=== PATIENT | female | born 1950 | race Caucasian/White ===

== ENCOUNTER 2018-05-05 12:19 | Observation (INO) ==
[2018-05-05] MEDS ORDERED: Ondansetron 4 MG/2 ML VIAL IVP ONE (12:32)
[2018-05-05] MEDS ORDERED: *HR* HYDROcodone/Acet 5/325 mg TABLET PO ONE ×2 (12:33→12:34)
[2018-05-05] MEDS ORDERED: 0.9 % Sodium Chloride 1,000 ML IVC ONE (12:35)
--- NOTE | 2018-05-05 12:35 | Emergency Department Note ---
Disposition Clinical Impression: UTI (urinary tract infection) Qualifiers: Urinary tract infection type: acute pyelonephritis Qualified Code(s): N10 - Acute pyelonephritis Disposition: Home, Self-Care Condition: Fair Time of Disposition: 15:00 (Dr Worrell) Abdominal Pain HPI - General Chief Complaint: ED Abdominal Pain Stated Complaint: pelvic and low back pain Time Seen by Provider: 05/05/18 12:24 Source: patient Mode of arrival: ambulatory Limitations: no limitations Nursing Notes Reviewed: Yes Vital Signs Reviewed: Yes - History of Present Illness HPI Narrative: Patient woke up around 3 in the morning complaining of right flank low back pain that radiates to the suprapubic area. Pt Subjective Complaint: abdominal pain, flank pain Consistency: constant, Worsening Location: suprapubic, R flank Pain Severity: severe Quality: cramping, stabbing, aching Radiation: none Migration to: no migration Improves with: nothing Worsens with: nothing Context: other (Patient has a history of UTI with pyelonephritis as well as kidney stones. She states this is slightly different from previous pain.) Associated symptoms: Reports: nausea, chills, dysuria. Denies: vomiting, diarrhea, fever, constipation, hematemesis, hematochezia, melena, hematuria, anorexia, syncope Treatments prior to arrival: none - Related Data Home Medications Medication Instructions Recorded Confirmed Albuterol Neb [Proventil Neb] 2.5 mg IH Q4HR 10/17/16 05/05/18 Albuterol Sulfate [Proair Hfa] 2 puff IH Q4H PRN 10/17/16 05/05/18 Aspirin [Lo-Dose Aspirin EC] 81 mg PO DAILY 10/17/16 05/05/18 Budesonide/Formoterol 160/4.5 2 puff IH BID 10/17/16 05/05/18 [Symbicort 160/4.5] Furosemide [Lasix] 40 mg PO DAILY 10/17/16 05/05/18 Insulin DETEMIR [Levemir Flextouch] 7 unit SQ QPM 10/17/16 05/05/18 Mv W-Ca/Iron/FA/Lutein/Hrb#179 1 each PO DAILY 10/17/16 05/05/18 [Bg Multivit For Women Caplet] ALPRAZolam [Xanax 1 MG Tablet] 1 mg PO TID 12/25/17 05/05/18 Empagliflozin [Jardiance] 10 mg PO DAILY 12/25/17 05/05/18 Nitroglycerin [Nitrostat] 0.4 mg SL Q5M PRN 12/25/17 02/20/18 Cyclobenzaprine [Flexeril] 1 PO PRN PRN 02/20/18 Ranitidine HCl [Acid Sales Representative Metals] 150 mg PO DAILY 05/05/18 05/05/18 Previous Rx's Medication Instructions Recorded OxyCODONE/APAP 5/325 [Percocet 1 - 2 tab PO QID PRN 7 Days #20 12/29/17 5/325 MG] tablet predniSONE [PredniSONE] 40 mg PO DAILY #4 tablet 01/07/18 Allergies Allergy/AdvReac Type Severity Reaction Status Date / Time No Known Allergies Allergy Verified 05/05/18 12:54 All systems ED: reviewed and negative except as stated. Review of Systems: As Per HPI Abdominal Pain PMH - Past Medical History Medical history: Reports: COPD, coronary artery disease, diabetes, GERD, hypertension, myocardial infarction Female Surgical History: Reports: Adenoidectomy, Tonsillectomy Psychiatric history: Reports: no psych history - Social History Smoking status: Current every day smoker Alcohol use: Reports: none Drug use: Reports: none Physical Exam - General Limitations: no limitations General appearance: alert, in distress - Head Head exam: atraumatic, normocephalic, normal inspection - Eye Eye exam: Present: normal appearance. Absent: scleral icterus, conjunctival injection - ENT ENT exam: normal exam, normal oropharynx, mucous membranes moist - Neck Neck exam: Present: normal inspection, full ROM, trachea midline - Chest Chest inspection: Present: normal inspection, symmetric chest wall rise - Respiratory Respiratory exam: Present: normal lung sounds bilaterally - Cardiovascular Cardiovascular exam: Present: normal rhythm, tachycardia, normal heart sounds. Absent: JVD - Abdominal Exam Abdominal exam: Present: soft, tenderness. Absent: distention, guarding, rebound, rigidity, mass, bruit, pulsatile mass Abdominal tenderness: Present: LLQ, suprapubic - Extremities Exam Extremities exam: Present: normal inspection, full ROM. Absent: tenderness, pedal edema - Expanded Lower Extremity Exam Hip/Pelvis exam: Present: normal inspection, full ROM - Back Exam Back exam: Present: CVA tenderness (R), CVA tenderness (L) - Neurological Exam Neurological exam: Present: alert, oriented X3, CN II-XII intact - Psychiatric Psychiatric exam: Present: normal affect, anxious - Skin Skin exam: Present: warm, intact, normal color Course Vital Signs Temperature 100.4 F H 05/05/18 12:27 Pulse Rate 128 05/05/18 12:27 Respiratory Rate 18 05/05/18 12:27 Blood Pressure 133/82 05/05/18 12:27 O2 Sat by Pulse Oximetry 93 05/05/18 12:27 Temperature 100.4 F H 05/05/18 12:27 Pulse Rate 91 05/05/18 15:23 Respiratory Rate 22 05/05/18 16:47 Blood Pressure 133/72 05/05/18 15:23 O2 Sat by Pulse Oximetry 96 05/05/18 16:47 Oxygen Delivery Oxygen Delivery Nasal Cannula Abdominal Pain - Differential Diagnosis Differential Diagnosis: Likely: abdominal pain non-specific, diverticulitis, diverticulosis. Unlikely: AAA, acute appendicitis, endometriosis, gastroenteritis, hernia - Medical Records Medical records reviewed: Yes I reviewed the patient's medical records. - Lab Data Lab results reviewed: Yes I reviewed the patient's lab results. Result diagrams: 05/05/18 12:50 05/05/18 12:50 Lab Results 05/05/18 05/05/18 05/05/18 Range/Units 12:32 12:50 12:50 WBC 14.2 H (4.3-11.1) K/mcL RBC 4.76 (3.82-4.97) M/mcL Hgb 12.7 (11.5-15.4) g/dL Hct 39.0 (35.3-44.9) % MCV 81.9 L (83.0-100.0) fL MCH 26.7 L (28.0-33.3) pg MCHC 32.6 (31.6-35.5) g/dL RDW 14.2 (11.5-14.5) % Plt Count 242 (140-400) K/mcL MPV 11.0 (9.4-12.4) fL Immature Gran % 0.4 (0-4) % Seg Neutrophils % 92.4 % Lymphocytes % 4.9 % Monocytes % 1.5 % Eosinophils % 0.5 % Basophils % 0.3 % Neutrophils # 13.1 H (1.6-8.9) K/mcL Lymphocytes # 0.7 (0.6-4.6) K/mcL Monocytes # 0.2 (0.0-1.3) K/mcL Eosinophils # 0.1 (0.0-0.6) K/mcL Basophils # 0.0 (0.0-0.2) K/mcL Sodium 142 (136-145) mEq/L Potassium 3.5 (3.5-5.1) mEq/L Chloride 105 (98-107) mEq/L Carbon Dioxide 26 (23-29) mEq/L BUN 23 (8-23) mg/dL Creatinine 0.74 (0.60-1.20) mg/dL Est GFR ( Amer) > 60 (> 60) Est GFR (Non-Af Amer) > 60 (> 60) BUN/Creatinine Ratio 31 H (6-26) Glucose 184 H (70-105) mg/dL Calculated Osmolality 302 H (280-300) Lactic Acid (0.5-2.2) mmol/L Calcium 9.1 (8.6-10.3) mg/dL Total Bilirubin 0.5 (0.3-1.0) mg/dL Direct Bilirubin 0.1 (0.0-0.2) mg/dL Indirect Bilirubin 0.4 (0.0-1.2) mg/dL AST 15 (13-39) Units/L ALT 12 (7-52) Units/L Alkaline Phosphatase 110 H (34-104) Units/L Serum Total Protein 7.4 (6.4-8.9) g/dL Albumin 4.0 (3.5-5.7) g/dL Globulin 3.4 (2.4-3.5) g/dL Albumin/Globulin Ratio 1.2 (1.1-2.2) Urine Color Yellow (Yellow) Urine Clarity Cloudy A (Clear) Urine pH 6.0 (5.0-8.0) pH Units Ur Specific [place] 1.025 (1.010-1.025) Urine Protein >=300 H (Neg-Trace) mg/dL Urine Glucose (UA) Normal (Normal) mg/dL Urine Ketones Negative (Negative) mg/dL Urine Blood Large H (Negative) Urine Nitrite Negative (Negative) Urine Bilirubin Small H (Negative) Urine Urobilinogen Normal (Normal) mg/dL Ur Leukocyte Esterase Moderate H (Negative) Urine Microscopic RBC TNTC H (0-3) per hpf Urine Microscopic WBC TNTC H (0-3) per hpf Ur Squamous Epith Cells Few (None-Few) per lpf Urine Bacteria Many H (None-Few) per hpf Hyaline Casts Few (None-Few) per lpf Urine Mucus Moderate H (Few) Ur Culture Indicated? YES A (NO) 05/05/18 Range/Units 12:50 WBC (4.3-11.1) K/mcL RBC (3.82-4.97) M/mcL Hgb (11.5-15.4) g/dL Hct (35.3-44.9) % MCV (83.0-100.0) fL MCH (28.0-33.3) pg MCHC (31.6-35.5) g/dL RDW (11.5-14.5) % Plt Count (140-400) K/mcL MPV (9.4-12.4) fL Immature Gran % (0-4) % Seg Neutrophils % % Lymphocytes % % Monocytes % % Eosinophils % % Basophils % % Neutrophils # (1.6-8.9) K/mcL Lymphocytes # (0.6-4.6) K/mcL Monocytes # (0.0-1.3) K/mcL Eosinophils # (0.0-0.6) K/mcL Basophils # (0.0-0.2) K/mcL Sodium (136-145) mEq/L Potassium (3.5-5.1) mEq/L Chloride (98-107) mEq/L Carbon Dioxide (23-29) mEq/L BUN (8-23) mg/dL Creatinine (0.60-1.20) mg/dL Est GFR ( Amer) (> 60) Est GFR (Non-Af Amer) (> 60) BUN/Creatinine Ratio (6-26) Glucose (70-105) mg/dL Calculated Osmolality (280-300) Lactic Acid 2.0 (0.5-2.2) mmol/L Calcium (8.6-10.3) mg/dL Total Bilirubin (0.3-1.0) mg/dL Direct Bilirubin (0.0-0.2) mg/dL Indirect Bilirubin (0.0-1.2) mg/dL AST (13-39) Units/L ALT (7-52) Units/L Alkaline Phosphatase (34-104) Units/L Serum Total Protein (6.4-8.9) g/dL Albumin (3.5-5.7) g/dL Globulin (2.4-3.5) g/dL Albumin/Globulin Ratio (1.1-2.2) Urine Color (Yellow) Urine Clarity (Clear) Urine pH (5.0-8.0) pH Units Ur Specific [place] (1.010-1.025) Urine Protein (Neg-Trace) mg/dL Urine Glucose (UA) (Normal) mg/dL Urine Ketones (Negative) mg/dL Urine Blood (Negative) Urine Nitrite (Negative) Urine Bilirubin (Negative) Urine Urobilinogen (Normal) mg/dL Ur Leukocyte Esterase (Negative) Urine Microscopic RBC (0-3) per hpf Urine Microscopic WBC (0-3) per hpf Ur Squamous Epith Cells (None-Few) per lpf Urine Bacteria (None-Few) per hpf Hyaline Casts (None-Few) per lpf Urine Mucus (Few) Ur Culture Indicated? (NO)
[2018-05-05 12:45] LABS: Bilirubin,Urine Small (Negative); Blood,Urine Large (Negative); Clarity,Urine Cloudy (Clear); Color,Urine Yellow (Yellow); Glucose,Urine (UA) Normal (Normal); Ketones,Urine Negative (Negative); Leukocyte Esterase,Urine Moderate (Negative); Nitrite,Urine Negative (Negative); Protein,Urine >=300 mg/dL (Neg-Trace); Specific Gravity,Urine 1.025 (1.010-1.025); Urobilinogen,Urine Normal (Normal)
[2018-05-05 12:53] LABS: Bacteria,Urine Many per hpf (None-Few); Hyaline Casts,Urine Few per lpf (None-Few); Mucus,Urine Moderate (Few); RBC,Urine TNTC per hpf (0-3); Squamous Epithelial Cell,Urine Few per lpf (None-Few); WBC,Urine TNTC per hpf (0-3)
[2018-05-05] MEDS ORDERED: Piperacillin/Tazobactam 3.375 GM in 0.9 % Sodium Chloride Mini Bag 100 ML IVPB ONE (13:01)
[2018-05-05 13:05] LABS: Basophils % 0.3 %; Eosinophils # 0.1 K/mcL (0.0-0.6); Eosinophils % 0.5 %; Hemoglobin 12.7 g/dL (11.5-15.4); Immature Granulocytes % 0.4 % (0-4); Lymphocytes # 0.7 K/mcL (0.6-4.6); Lymphocytes % 4.9 %; Mean Corpuscular HGB Conc 32.6 g/dL (31.6-35.5); Mean Corpuscular Hemoglobin 26.7 pg (28.0-33.3); Mean Corpuscular Volume 81.9 fL (83.0-100.0); Monocytes # 0.2 K/mcL (0.0-1.3); Monocytes % 1.5 %; Neutrophils # 13.1 K/mcL (1.6-8.9); Platelet Count 242 K/mcL (140-400); Red Blood Count 4.76 M/mcL (3.82-4.97); Red Cell Distribution Width 14.2 % (11.5-14.5); Segmented Neutrophils % 92.4 %
[2018-05-05 13:24] LABS: Alanine Aminotransferase 12 Units/L (7-52); Albumin/Globulin Ratio 1.2 (1.1-2.2); Alkaline Phosphatase 110 Units/L (34-104); Aspartate Amino Transferase 15 Units/L (13-39); BUN/Creatinine Ratio 31 (6-26); Bilirubin,Direct 0.1 mg/dL (0.0-0.2); Bilirubin,Indirect 0.4 mg/dL (0.0-1.2); Bilirubin,Total 0.5 mg/dL (0.3-1.0); Blood Urea Nitrogen 23 mg/dL (8-23); Calcium 9.1 mg/dL (8.6-10.3); Carbon Dioxide 26 mEq/L (23-29); Chloride 105 mEq/L (98-107); Globulin 3.4 g/dL (2.4-3.5); Glucose 184 mg/dL (70-105); Osmolality,Calculated 302 (280-300); Potassium 3.5 mEq/L (3.5-5.1); Sodium 142 mEq/L (136-145); Total Protein 7.4 g/dL (6.4-8.9); eGFR For African Americans > 60 (> 60); eGFR For Non-African Americans > 60 (> 60)
[2018-05-05] MEDS ORDERED: 0.9 % Sodium Chloride 1,000 ML IVC SCH (13:45)
[2018-05-05] MEDS ORDERED: *HR* HYDROcodone/Acet 5/325 mg TABLET PO PRN (15:58)
[2018-05-05] MEDS ORDERED: Naloxone 0.4 MG/ML INJ IVP PRN ×2 (15:58)
[2018-05-05] MEDS: Albuterol 2.5 MG/3 ML NEBULIZER IH SCH ×2 (16:47→21:29)
[2018-05-05] MEDS: *HR* OxyCODONE Immed Rel 5 MG TABLET PO PRN (16:49)
[2018-05-05] MEDS: ALPRAZolam 1 MG TABLET PO SCH ×2 (17:08→21:22)
[2018-05-05] MEDS: Insulin DETEMIR 100 UNIT/ML X5UNITS SQ SCH (18:18)
[2018-05-05] MEDS: Acetaminophen 325 MG TABLET PO PRN (21:22)
[2018-05-05] MEDS: 0.9 % Sodium Chloride 1,000 ML IVC SCH (21:25)
[2018-05-05] MEDS: Budesonide/Formoterol 160/4.5 MDI IH SCH (21:30)
[2018-05-06] MEDS: Albuterol 2.5 MG/3 ML NEBULIZER IH SCH ×6 (03:30→20:44)
[2018-05-06] MEDS: Acetaminophen 325 MG TABLET PO PRN (04:44)
[2018-05-06] MEDS: 0.9 % Sodium Chloride 1,000 ML IVC SCH (04:45)
[2018-05-06] MEDS: Budesonide/Formoterol 160/4.5 MDI IH SCH ×2 (08:07→20:44)
[2018-05-06] MEDS: Famotidine 20 MG TABLET PO SCH (08:17)
[2018-05-06] MEDS: ALPRAZolam 1 MG TABLET PO SCH ×3 (08:17→21:54)
[2018-05-06] MEDS: Multivit/Ca/Min/Fe/FA 1 TAB TABLET PO SCH (08:18)
[2018-05-06] MEDS: Aspirin Enteric Coated 81 MG Tablet PO SCH (08:18)
[2018-05-06] MEDS: JARDIANCE 10MG PO SCH (08:18)
[2018-05-06] MEDS ORDERED: Furosemide 40 MG TABLET PO SCH (09:00)
[2018-05-06] MEDS ORDERED: predniSONE 20 MG TABLET PO SCH (09:00)
--- NOTE | 2018-05-06 09:15 | Internal Med History&Physical ---
Date of Encounter: 05/06/18 Time of Encounter: 08:40 Assessment and Plan (1) Neutrophilic leukocytosis Current visit: Yes Status: Acute Possible pyelonephritis. Will order CT of abdomen to further evaluate since she has had intermittent hematuria present for a few weeks. Will also order chest CT to further evaluate. (2) Microcytosis Current visit: Yes Status: Acute Will order iron studies in a.m. (3) B12 deficiency Current visit: Yes Status: Acute B12 level was low at 173 on 11/11/2017. Will recheck in a.m. (4) Urinary tract infection Current visit: Yes Status: Acute She was given a dose of Zosyn in emergency room. We will continue this with lactobacillus. Qualifiers: Urinary tract infection type: site unspecified Hematuria presence: with hematuria Qualified Code(s): N39.0 - Urinary tract infection, site not specified; R31.9 - Hematuria, unspecified (5) HTN (hypertension) Current visit: No Status: Chronic Blood pressure borderline low today. Will hold metoprolol. Qualifiers: Hypertension type: essential hypertension Qualified Code(s): I10 - Essential (primary) hypertension Internal Medicine - H&P: HPI Chief complaint: Abdominal and flank pain Admitted From: Emergency Dept Plans for Post Hospital Care: Home History of present illness: Ms. Laird is a 68 year old female who came to emergency room stating she awakened at 0300 on the day of admission with pain in her right flank that seemed to radiate to her right lower quadrant and suprapubic area. She had nausea but denied vomiting. She had sensation of fevers and chills. She has had visible hematuria intermittently for 2 weeks. She was evaluated in emergency room and found to have leukocytosis with left shift. She was admitted to [facility] floor with diagnosis of UTI and possible pyelonephritis. She states she feels improved at the present time. She reports she has had numerous kidney stones in the past and has seen Dr. Sorensen at [facility]. She does not know the stone composition. She had cystoscopy November 2017 for hydronephrosis without stones seen. She has had frequent urinary tract infections. She denies other kidney or bladder disorders. Past Med Surg Social Fam HX - Past Medical History Medical history: COPD, coronary artery disease, diabetes, GERD, hypertension, myocardial infarction Additional medical history: kidney stone Psychiatric history: no psych history - Past Surgical History Surgical History: appendectomy, cholecystectomy, herniorrhaphy Additional surgical history: triple bipass, T&A - Social History Smoking Status: Current every day smoker Smokeless Tobacco Status: No Alcohol use: none Drug use: none - Family History Mother Living Status: Father Living Status: Internal Medicine - H&P: Meds Albuterol Neb [Proventil Neb] 2.5 mg IH Q4HR 10/17/16 [History] Albuterol Sulfate [Proair Hfa] 2 puff IH Q4H PRN 10/17/16 [History] Aspirin [Lo-Dose Aspirin EC] 81 mg PO DAILY 10/17/16 [History] Budesonide/Formoterol 160/4.5 [Symbicort 160/4.5] 2 puff IH BID 10/17/16 [ History] Furosemide [Lasix] 40 mg PO DAILY 10/17/16 [History] Insulin DETEMIR [Levemir Flextouch] 7 unit SQ QPM 10/17/16 [History] Mv W-Ca/Iron/FA/Lutein/Hrb#179 [Bg Multivit For Women Caplet] 1 each PO DAILY 10/17/16 [History] ALPRAZolam [Xanax 1 MG Tablet] 1 mg PO TID 12/25/17 [History] Empagliflozin [Jardiance] 10 mg PO DAILY 12/25/17 [History] Nitroglycerin [Nitrostat] 0.4 mg SL Q5M PRN 12/25/17 [History] OxyCODONE/APAP 5/325 [Percocet 5/325 MG] 1 - 2 tab PO QID PRN 7 Days #20 tablet 12/29/17 [Rx] predniSONE [PredniSONE] 40 mg PO DAILY #4 tablet 01/07/18 [Rx] Cyclobenzaprine [Flexeril] 1 PO PRN PRN 02/20/18 [History] Ranitidine HCl [Acid Phd Intern] 150 mg PO DAILY 05/05/18 [History] 3 Allergy/AdvReac Type Severity Reaction Status Date / Time No Known Allergies Allergy Verified 05/05/18 12:54 All Systems PM: A 10-system review of systems was performed and is negative for pertinent findings except as documented above in the HPI. Review of systems: Gen.: Her weight has decreased from 73.482 kg on 12/28/2017 to admission weight of 70.307 kg now. Cardiovascular: She has history of hypertension. 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 She has not had stress test or repeat heart catheter since the surgery. She denies known heart failure DVT or pulmonary embolus. Respiratory: She has smoked since age 11 up to one pack every 2 weeks. She denies chronic lung disease and does not use home oxygen. GI: She has had cholecystectomy. She denies disorders of her liver or exocrine pancreas : As per history of present illness Endocrine: She was diagnosed with DM 2 in 2012. She has hyperlipidemia but denies thyroid disease. Hematology/oncology: She denies blood disorders cancers or anemia. She was unaware she had low B12 level on October 2017 labs. She was unaware she had microcytosis on labs in emergency room. Psychiatric: She has anxiety and depression but denies other mental health diagnoses [place] skeletal: She denies arthritis gout or other bone joint or muscle disorders. - Constitutional Vitals: Temp Pulse Resp BP Pulse Ox 98.2 F 80 16 96/54 95 05/06/18 06:49 05/06/18 06:49 05/06/18 06:49 05/06/18 06:49 05/06/18 08:05 Exam: Gen.: She is a well developed well nourished female resting comfortably in bed who appears in no acute distress. HEENT: Head is atraumatic and normocephalic. Eyes: EOMI. There is no scleral icterus. Mouth: Mucosa is moist. Neck: Supple and nontender. There is no thyromegaly or adenopathy noted. Heart: Regular without murmurs gallops or ectopics Lungs: She has scattered rhonchi. She has some egophony in the posterior lung grimm bilaterally. Abdomen: Soft and nontender. No masses or guarding are noted. Bowel sounds are present. Extremities: There is no cyanosis edema or clubbing noted. Dorsalis pedis and posttibial pulses are trace to 1+ palpable bilaterally. Feet are warm to touch. Neurologic: Mental status: She is talkative and a good historian. Cranial nerves: Smile is symmetric. Forehead wrinkles bilaterally. Tongue protrudes midline. EOMI. Motor: There is no pronator drift. Cerebellar: Finger to nose is intact bilaterally. Skin: Warm and dry Internal Med - H&P Results - Labs CBC & Chem 7: 05/05/18 12:50 05/05/18 12:50
[2018-05-06] MEDS: 0.45 % Sodium Chloride w/KCl 20 MEQ/1,000 ML MLS IVC SCH ×2 (10:08→21:54)
[2018-05-06] MEDS: Piperacillin/Tazobactam 3.375 GM in 0.9 % Sodium Chloride Mini Bag 100 ML IVPB SCH ×3 (10:09→23:59)
[2018-05-06] MEDS: *HR* OxyCODONE Immed Rel 5 MG TABLET PO PRN (18:20)
[2018-05-06] MEDS: Insulin DETEMIR 100 UNIT/ML X5UNITS SQ SCH (18:21)
[2018-05-06] MEDS: Lactobacillus 1 EACH CAP.SPRINK PO SCH (21:54)
[2018-05-07] MEDS: Albuterol 2.5 MG/3 ML NEBULIZER IH SCH ×6 (00:41→20:23)
[2018-05-07] MEDS: 0.45 % Sodium Chloride w/KCl 20 MEQ/1,000 ML MLS IVC SCH ×2 (06:18→21:03)
[2018-05-07 06:51] LABS: Basophils % 0.3 %; Eosinophils % 0.3 %; Hematocrit 31.6 % (35.3-44.9); Immature Granulocytes % 0.9 % (0-4); Lymphocytes # 1.2 K/mcL (0.6-4.6); Lymphocytes % 18.2 %; Mean Corpuscular HGB Conc 31.6 g/dL (31.6-35.5); Mean Corpuscular Hemoglobin 26.5 pg (28.0-33.3); Mean Corpuscular Volume 83.8 fL (83.0-100.0); Mean Platelet Volume 11.9 fL (9.4-12.4); Monocytes # 0.5 K/mcL (0.0-1.3); Monocytes % 7.1 %; Neutrophils # 4.8 K/mcL (1.6-8.9); Platelet Count 189 K/mcL (140-400); Red Blood Count 3.77 M/mcL (3.82-4.97); Red Cell Distribution Width 14.6 % (11.5-14.5); Segmented Neutrophils % 73.2 %
[2018-05-07 07:20] LABS: BUN/Creatinine Ratio 26 (6-26); Blood Urea Nitrogen 19 mg/dL (8-23); Calcium 8.4 mg/dL (8.6-10.3); Carbon Dioxide 28 mEq/L (23-29); Chloride 106 mEq/L (98-107); Glucose 254 mg/dL (70-105); Magnesium 2.1 mg/dL (1.6-2.6); Osmolality,Calculated 305 (280-300); Potassium 3.3 mEq/L (3.5-5.1); Sodium 142 mEq/L (136-145); eGFR For African Americans > 60 (> 60); eGFR For Non-African Americans > 60 (> 60)
[2018-05-07] MEDS: Multivit/Ca/Min/Fe/FA 1 TAB TABLET PO SCH (07:42)
[2018-05-07] MEDS: Lactobacillus 1 EACH CAP.SPRINK PO SCH ×2 (07:42→21:05)
[2018-05-07] MEDS: Aspirin Enteric Coated 81 MG Tablet PO SCH (07:43)
[2018-05-07] MEDS: Piperacillin/Tazobactam 3.375 GM in 0.9 % Sodium Chloride Mini Bag 100 ML IVPB SCH ×2 (07:43→18:33)
[2018-05-07] MEDS: Famotidine 20 MG TABLET PO SCH (07:43)
[2018-05-07] MEDS: ALPRAZolam 1 MG TABLET PO SCH (07:43)
[2018-05-07] MEDS: JARDIANCE 10MG PO SCH (07:54)
[2018-05-07] MEDS: Budesonide/Formoterol 160/4.5 MDI IH SCH ×2 (08:27→20:23)
[2018-05-07 10:22] LABS: % Iron Saturation 5 % (15-50); Iron 16 mcg/dL (50-170); Transferrin 227 mg/dL (203-362)
[2018-05-07 10:42] LABS: Ferritin 73 ng/mL (10-120)
[2018-05-07 10:49] LABS: Vitamin B12 224 pg/mL (250-1100)
[2018-05-07 10:52] LABS: Folate > 22.3 ng/mL (3.0-16.0)
--- NOTE | 2018-05-07 11:44 | Internal Med Progress Note ---
Date of Encounter: 05/07/18 Time of Encounter: 11:35 - Assessment and plan (1) Neutrophilic leukocytosis Current Visit: Yes Status: Acute Assessment and plan: May 07. CT scan showed no evidence of pyelonephritis. Urine culture showed Escherichia coli ESBL. Continue IV Zosyn with lactobacillus. Will likely discharge home tomorrow on oral Septra if stable (2) Microcytosis Current Visit: Yes Status: Acute Assessment and plan: May 07. Anemia testing showed iron 16, transferrin saturation 5%, transferrin 227, ferritin 73, B12 224, and folate > 22.3. Will give IV iron sucrose and IM B12 injection. (3) B12 deficiency Current Visit: Yes Status: Acute Assessment and plan: May 07. As per above. (4) Urinary tract infection Current Visit: Yes Status: Acute Assessment and plan: May 07. Continue IV Zosyn and lactobacillus. Qualifiers: Urinary tract infection type: site unspecified Hematuria presence: with hematuria Qualified Code(s): N39.0 - Urinary tract infection, site not specified; R31.9 - Hematuria, unspecified (5) HTN (hypertension) Current Visit: No Status: Chronic Assessment and plan: May 07. Continue present management. Qualifiers: Hypertension type: essential hypertension Qualified Code(s): I10 - Essential (primary) hypertension - Subjective Interval history: May 07. She has no new complaints and feels slightly improved. - Constitutional Vitals: Temp Pulse Resp BP Pulse Ox 97.8 F 82 18 137/65 95 05/07/18 11:06 05/07/18 11:06 05/07/18 11:06 05/07/18 11:06 05/07/18 11:06 Exam: She is resting comfortably in bed and appears in no acute distress. Her affect is overall cheerful. I reviewed her medications. I discussed pertinent lab results with her. Internal Medicine: Result - Labs CBC & Chem 7: 05/07/18 05:30 05/07/18 05:30 Labs: Short CBC 05/07/18 Range/Units 05:30 WBC 6.6 D (4.3-11.1) K/mcL Hgb 10.0 L D (11.5-15.4) g/dL Hct 31.6 L (35.3-44.9) % Plt Count 189 (140-400) K/mcL Neutrophils # 4.8 (1.6-8.9) K/mcL BMP 05/07/18 05:30 Sodium 142 Potassium 3.3 L Chloride 106 Carbon Dioxide 28 BUN 19 Creatinine 0.73 Glucose 254 H Calcium 8.4 L - Impressions Impressions Abdomen/Pelvis CT 05/06/18 09:30 IMPRESSION: No acute abnormality or evidence for neoplastic disease in the chest, abdomen or pelvis. Chronic findings as above. D/ / Bowen Santiago / Bowen Santiago Interpreting Provider: Bowen Santiago Chest CT 05/06/18 09:30 IMPRESSION: No acute abnormality or evidence for neoplastic disease in the chest, abdomen or pelvis. Chronic findings as above. D/ / Bowen Santiago / Bowen Santiago Interpreting Provider: Bowen Santiago Consult Discharge Plan - Plan Referrals: Sonia Peoples, BALLAST CLEANING MACHINE OPERATOR [Primary Care Provider] -
[2018-05-07] MEDS ORDERED: Iron Sucrose Complex 400 MG in 0.9 % Sodium Chloride 250 ML IVPB ONE (11:47)
[2018-05-07] MEDS ORDERED: Cyanocobalamin (B-12) 1,000 MCG/ML VIAL IM ONE (11:48)
[2018-05-07] MEDS: ALPRAZolam 1 MG TABLET PO PRN ×2 (14:14→21:05)
[2018-05-07] MEDS ORDERED: 0.9 % Sodium Chloride Mini Bag 100 ML ONE (18:32)
[2018-05-07] MEDS: Insulin DETEMIR 100 UNIT/ML X5UNITS SQ SCH (21:04)
[2018-05-08] MEDS: Piperacillin/Tazobactam 3.375 GM in 0.9 % Sodium Chloride Mini Bag 100 ML IVPB SCH ×3 (00:18→17:03)
[2018-05-08] MEDS: Albuterol 2.5 MG/3 ML NEBULIZER IH SCH ×6 (00:32→20:44)
[2018-05-08] MEDS: 0.45 % Sodium Chloride w/KCl 20 MEQ/1,000 ML MLS IVC SCH ×3 (04:35→19:02)
[2018-05-08 06:28] LABS: Basophils % 0.6 %; Eosinophils # 0.3 K/mcL (0.0-0.6); Eosinophils % 4.1 %; Hematocrit 34.2 % (35.3-44.9); Hemoglobin 11.1 g/dL (11.5-15.4); Immature Granulocytes % 0.7 % (0-4); Lymphocytes # 1.4 K/mcL (0.6-4.6); Lymphocytes % 19.4 %; Mean Corpuscular HGB Conc 32.5 g/dL (31.6-35.5); Mean Corpuscular Hemoglobin 26.9 pg (28.0-33.3); Mean Platelet Volume 11.7 fL (9.4-12.4); Monocytes # 0.5 K/mcL (0.0-1.3); Monocytes % 6.6 %; Neutrophils # 4.8 K/mcL (1.6-8.9); Platelet Count 226 K/mcL (140-400); Red Blood Count 4.12 M/mcL (3.82-4.97); Red Cell Distribution Width 14.6 % (11.5-14.5); Segmented Neutrophils % 68.6 %
[2018-05-08 07:01] LABS: BUN/Creatinine Ratio 15 (6-26); Blood Urea Nitrogen 11 mg/dL (8-23); Carbon Dioxide 29 mEq/L (23-29); Chloride 104 mEq/L (98-107); Glucose 113 mg/dL (70-105); Osmolality,Calculated 296 (280-300); Potassium 3.4 mEq/L (3.5-5.1); Sodium 143 mEq/L (136-145); eGFR For African Americans > 60 (> 60); eGFR For Non-African Americans > 60 (> 60)
[2018-05-08] MEDS: *HR* OxyCODONE Immed Rel 5 MG TABLET PO PRN ×3 (08:54→21:03)
[2018-05-08] MEDS: Lactobacillus 1 EACH CAP.SPRINK PO SCH ×2 (09:12→21:03)
[2018-05-08] MEDS: Multivit/Ca/Min/Fe/FA 1 TAB TABLET PO SCH (09:12)
[2018-05-08] MEDS: Aspirin Enteric Coated 81 MG Tablet PO SCH (09:12)
[2018-05-08] MEDS: Budesonide/Formoterol 160/4.5 MDI IH SCH ×2 (09:23→20:44)
[2018-05-08] MEDS: ALPRAZolam 1 MG TABLET PO PRN ×2 (09:29→21:03)
[2018-05-08] MEDS: Ondansetron 4 MG/2 ML VIAL IVP PRN ×2 (10:14→17:12)
[2018-05-08] MEDS: JARDIANCE 10MG PO SCH (11:50)
--- NOTE | 2018-05-08 14:14 | Internal Med Progress Note ---
Date of Encounter: 05/08/18 Time of Encounter: 14:05 - Assessment and plan (1) Neutrophilic leukocytosis Current Visit: Yes Status: Acute Assessment and plan: May 07. CT scan showed no evidence of pyelonephritis. Urine culture showed Escherichia coli ESBL. Continue IV Zosyn with lactobacillus. Will likely discharge home tomorrow on oral Septra if stable [place] 11. Suspect UTI and small kidney stone being passed. Continue IV Zosyn and will schedule [place] every 4 hours while awake. (2) Microcytosis Current Visit: Yes Status: Acute Assessment and plan: May 07. Anemia testing showed iron 16, transferrin saturation 5%, transferrin 227, ferritin 73, B12 224, and folate > 22.3. Will give IV iron sucrose and IM B12 injection. (3) B12 deficiency Current Visit: Yes Status: Acute Assessment and plan: May 07. As per above. (4) Urinary tract infection Current Visit: Yes Status: Acute Assessment and plan: May 07. Continue IV Zosyn and lactobacillus. Qualifiers: Urinary tract infection type: site unspecified Hematuria presence: with hematuria Qualified Code(s): N39.0 - Urinary tract infection, site not specified; R31.9 - Hematuria, unspecified (5) HTN (hypertension) Current Visit: No Status: Chronic Assessment and plan: May 07. Continue present management. Qualifiers: Hypertension type: essential hypertension Qualified Code(s): I10 - Essential (primary) hypertension - Subjective Interval history: May 07. She has no new complaints and feels slightly improved. [place] 11. She has developed right flank pain with radiation around her side into her groin area. She does not note visible blood in her urine. She has had vomiting. Review of admission records show history of previous and present kidney stones. She has significant hematuria present on admission UA. - Constitutional Vitals: Temp Pulse Resp BP Pulse Ox 98.8 F 73 14 123/78 94 05/08/18 10:00 05/08/18 10:00 05/08/18 12:53 05/08/18 10:00 05/08/18 12:53 Exam: She appears to have significant pain. I reviewed her UA which showed hematuria and CT abdomen/pelvis which showed kidney stones. I reviewed her medications and lab results. Internal Medicine: Result - Labs CBC & Chem 7: 05/08/18 05:40 05/08/18 05:40 Labs: Short CBC 05/08/18 Range/Units 05:40 WBC 7.0 (4.3-11.1) K/mcL Hgb 11.1 L (11.5-15.4) g/dL Hct 34.2 L (35.3-44.9) % Plt Count 226 (140-400) K/mcL Neutrophils # 4.8 (1.6-8.9) K/mcL BMP 05/08/18 05:40 Sodium 143 Potassium 3.4 L Chloride 104 Carbon Dioxide 29 BUN 11 Creatinine 0.71 Glucose 113 H Calcium 9.0 Consult Discharge Plan - Plan Referrals: Sonia Peoples, APARTMENT MAINTENANCE WORKER [Primary Care Provider] -
[2018-05-08] MEDS: *HR* HYDROcodone/Acet 5/325 mg TABLET PO SCH ×2 (17:02→21:05)
[2018-05-08] MEDS: Insulin DETEMIR 100 UNIT/ML X5UNITS SQ SCH (17:23)
[2018-05-09] MEDS: Piperacillin/Tazobactam 3.375 GM in 0.9 % Sodium Chloride Mini Bag 100 ML IVPB SCH ×3 (00:36→15:40)
[2018-05-09] MEDS: Albuterol 2.5 MG/3 ML NEBULIZER IH SCH ×6 (00:48→21:31)
[2018-05-09] MEDS: 0.45 % Sodium Chloride w/KCl 20 MEQ/1,000 ML MLS IVC SCH ×2 (05:01→22:13)
[2018-05-09] MEDS: Budesonide/Formoterol 160/4.5 MDI IH SCH ×2 (08:31→21:31)
[2018-05-09] MEDS: *HR* HYDROcodone/Acet 5/325 mg TABLET PO SCH ×4 (09:12→21:04)
[2018-05-09] MEDS: Aspirin Enteric Coated 81 MG Tablet PO SCH (09:12)
[2018-05-09] MEDS: Lactobacillus 1 EACH CAP.SPRINK PO SCH ×2 (09:12→21:01)
[2018-05-09] MEDS: Multivit/Ca/Min/Fe/FA 1 TAB TABLET PO SCH (09:12)
--- NOTE | 2018-05-09 09:58 | Internal Med Progress Note ---
Date of Encounter: 05/09/18 Time of Encounter: 09:50 - Assessment and plan (1) Neutrophilic leukocytosis Current Visit: Yes Status: Acute Assessment and plan: May 07. CT scan showed no evidence of pyelonephritis. Urine culture showed Escherichia coli ESBL. Continue IV Zosyn with lactobacillus. Will likely discharge home tomorrow on oral Septra if stable May 08. Suspect UTI and small kidney stone being passed. Continue IV Zosyn and will schedule [place] every 4 hours while awake. May 09. Will check labs (2) Microcytosis Current Visit: Yes Status: Acute Assessment and plan: May 07. Anemia testing showed iron 16, transferrin saturation 5%, transferrin 227, ferritin 73, B12 224, and folate > 22.3. Will give IV iron sucrose and IM B12 injection. (3) B12 deficiency Current Visit: Yes Status: Acute Assessment and plan: May 07. As per above. (4) Urinary tract infection Current Visit: Yes Status: Acute Assessment and plan: May 07. Continue IV Zosyn and lactobacillus. Qualifiers: Urinary tract infection type: site unspecified Hematuria presence: with hematuria Qualified Code(s): N39.0 - Urinary tract infection, site not specified; R31.9 - Hematuria, unspecified (5) HTN (hypertension) Current Visit: No Status: Chronic Assessment and plan: May 07. Continue present management. Qualifiers: Hypertension type: essential hypertension Qualified Code(s): I10 - Essential (primary) hypertension - Subjective Interval history: May 07. She has no new complaints and feels slightly improved. May 08. She has developed right flank pain with radiation around her side into her groin area. She does not note visible blood in her urine. She has had vomiting. Review of admission records show history of previous and present kidney stones. She has significant hematuria present on admission UA. May 09. She has unchanged right flank pain. She feels slightly more dyspneic. She has minimal cough. - Constitutional Vitals: Temp Pulse Resp BP Pulse Ox 100.3 F H 109 22 118/75 94 05/09/18 07:00 05/09/18 07:00 05/09/18 08:30 05/09/18 07:00 05/09/18 08:30 Exam: She is lying in bed and appears slightly dyspneic and in pain. Her lungs show no wheezes or crackles. She was wearing oxygen by [employer]. I reviewed her medications and vital signs. Internal Medicine: Result - Labs CBC & Chem 7: 05/08/18 05:40 05/08/18 05:40 Consult Discharge Plan - Plan Referrals: Sonia Peoples, JAMIE [Primary Care Provider] -
[2018-05-09 10:43] LABS: Basophils # 0.1 K/mcL (0.0-0.2); Basophils % 0.4 %; Eosinophils # 0.1 K/mcL (0.0-0.6); Eosinophils % 0.6 %; Hematocrit 35.7 % (35.3-44.9); Hemoglobin 11.7 g/dL (11.5-15.4); Immature Granulocytes % 0.6 % (0-4); Lymphocytes % 8.2 %; Mean Corpuscular HGB Conc 32.8 g/dL (31.6-35.5); Mean Corpuscular Hemoglobin 27.1 pg (28.0-33.3); Mean Corpuscular Volume 82.8 fL (83.0-100.0); Monocytes % 7.8 %; Neutrophils # 10.4 K/mcL (1.6-8.9); Platelet Count 247 K/mcL (140-400); Red Blood Count 4.31 M/mcL (3.82-4.97); Red Cell Distribution Width 14.5 % (11.5-14.5); Segmented Neutrophils % 82.4 %
[2018-05-09 11:07] LABS: Calcium 8.7 mg/dL (8.6-10.3); Potassium 4.2 mEq/L (3.5-5.1)
[2018-05-09] MEDS: JARDIANCE 10MG PO SCH (11:16)
[2018-05-09] MEDS: 0.9 % Sodium Chloride 1,000 ML IVC SCH (11:17)
[2018-05-09] MEDS: Sulfamethoxazole/Trimeth DS 1 EACH TABLET PO SCH ×2 (15:39→21:01)
[2018-05-09] MEDS: Insulin DETEMIR 100 UNIT/ML X5UNITS SQ SCH (17:21)
[2018-05-09 17:33] LABS: Bilirubin,Urine Negative (Negative); Blood,Urine Trace-intact (Negative); Clarity,Urine Clear (Clear); Color,Urine Yellow (Yellow); Glucose,Urine (UA) Normal (Normal); Ketones,Urine Negative (Negative); Leukocyte Esterase,Urine Negative (Negative); Nitrite,Urine Negative (Negative); Protein,Urine Negative (Neg-Trace); Urobilinogen,Urine Normal (Normal)
[2018-05-09] MEDS: ALPRAZolam 1 MG TABLET PO PRN (21:01)
[2018-05-09] MEDS: *HR* OxyCODONE Immed Rel 5 MG TABLET PO PRN (21:03)
[2018-05-10] MEDS: Piperacillin/Tazobactam 3.375 GM in 0.9 % Sodium Chloride Mini Bag 100 ML IVPB SCH (00:19)
[2018-05-10] MEDS: Albuterol 2.5 MG/3 ML NEBULIZER IH SCH ×5 (00:40→16:40)
[2018-05-10 07:17] LABS: Calcium 8.3 mg/dL (8.6-10.3); Potassium 4.2 mEq/L (3.5-5.1)
[2018-05-10 07:22] VITALS: BP 138/74
[2018-05-10 07:57] LABS: Basophils % 0.3 %; Eosinophils # 0.1 K/mcL (0.0-0.6); Hematocrit 33.7 % (35.3-44.9); Hemoglobin 10.8 g/dL (11.5-15.4); Immature Granulocytes % 0.5 % (0-4); Lymphocytes # 1.2 K/mcL (0.6-4.6); Lymphocytes % 10.9 %; Mean Corpuscular Hemoglobin 26.9 pg (28.0-33.3); Mean Corpuscular Volume 83.8 fL (83.0-100.0); Mean Platelet Volume 10.7 fL (9.4-12.4); Monocytes # 0.9 K/mcL (0.0-1.3); Monocytes % 8.1 %; Neutrophils # 8.9 K/mcL (1.6-8.9); Platelet Count 207 K/mcL (140-400); Red Blood Count 4.02 M/mcL (3.82-4.97); Red Cell Distribution Width 14.5 % (11.5-14.5); Segmented Neutrophils % 79.2 %
[2018-05-10] MEDS: Budesonide/Formoterol 160/4.5 MDI IH SCH (09:11)
--- NOTE | 2018-05-10 09:47 | Discharge Summary ---
Date of Encounter: 05/10/18 Time of Encounter: 09:35 - Discharge Diagnosis (1) Urinary tract infection Priority: Primary Status: Acute Qualifiers: Urinary tract infection type: site unspecified Hematuria presence: with hematuria Qualified Code(s): N39.0 - Urinary tract infection, site not specified; R31.9 - Hematuria, unspecified (2) B12 deficiency Priority: Secondary Status: Acute (3) Iron deficiency anemia Priority: Secondary Status: Acute Qualifiers: Iron deficiency anemia type: unspecified iron deficiency Qualified Code(s) : D50.9 - Iron deficiency anemia, unspecified (4) HTN (hypertension) Priority: Secondary Status: Chronic Qualifiers: Hypertension type: essential hypertension Qualified Code(s): I10 - Essential (primary) hypertension Hospital course: Ms. Laird is a 68 year old female who came to emergency room stating she awakened at 0300 on the day of admission with pain in her right flank that seemed to radiate to her right lower quadrant and suprapubic area. She had nausea but denied vomiting. She had sensation of fevers and chills. She has had visible hematuria intermittently for 2 weeks. She was evaluated in emergency room and found to have leukocytosis with left shift. She was admitted to [facility] floor with diagnosis of UTI and possible pyelonephritis. Initial orders were written by the emergency room physician. I saw her on May 06 and performed a history and physical. CT of chest abdomen and pelvis was done to further evaluate. No acute pathology was seen. There was no radiographic evidence of pyelonephritis. Urine culture returned showing Escherichia coli with sensitivity to Zosyn. She had intermittent right flank discomfort throughout hospitalization. WBC was 12.6 on May 09 but had improved to 11.2 with less left shift on May 10. She felt improved and stable for discharge home on May 10. She will continue with antibiotic and probiotic for 2 additional days. She will follow with her PCP within 1 week. She developed azotemia with creatinine rising to 1.54 by day of discharge. I felt this was possibly due to infection and/or medication use. Her PCP can monitor this and order follow-up labs as needed. Anemia testing showed iron 16, transferrin saturation 5%, transferrin 227, ferritin 73, B12 224, and folate> 22.3. She was given IM B12 injection and IV iron sucrose. She will continue with oral ferrous sulfate and vitamin C and oral B12 supplement at discharge. She will follow with her PCP Sonia Peoples CNP within 1 week. - Time Spent with Patient Total time spent providing and/or coordinating discharge services: - Discharge Medications Prescriptions: Ascorbic Acid [C-500] 500 mg PO DAILY #30 tablet Cyanocobalamin (B-12) [Vitamin B12] 1,000 mcg PO DAILY #30 tablet Ferrous Sulfate 325 mg PO DAILY #30 tablet Lactobacillus [Culturelle] 1 each PO BID #4 cap.sprink Sulfamethoxazole/Trimeth DS [Bactrim DS] 1 each PO BID #4 tablet Home Medications: Albuterol Neb [Proventil Neb] 2.5 mg IH Q4HR 10/17/16 [History] Albuterol Sulfate [Proair Hfa] 2 puff IH Q4H PRN 10/17/16 [History] Aspirin [Lo-Dose Aspirin EC] 81 mg PO DAILY 10/17/16 [History] Budesonide/Formoterol 160/4.5 [Symbicort 160/4.5] 2 puff IH BID 10/17/16 [ History] Insulin DETEMIR [Levemir Flextouch] 7 unit SQ QPM 10/17/16 [History] Mv W-Ca/Iron/FA/Lutein/Hrb#179 [Bg Multivit For Women Caplet] 1 each PO DAILY 10/17/16 [History] ALPRAZolam [Xanax 1 MG Tablet] 1 mg PO TID 12/25/17 [History] Empagliflozin [Jardiance] 10 mg PO DAILY 12/25/17 [History] Nitroglycerin [Nitrostat] 0.4 mg SL Q5M PRN 12/25/17 [History] OxyCODONE/APAP 5/325 [Percocet 5/325 MG] 1 - 2 tab PO QID PRN 7 Days #20 tablet 12/29/17 [Rx] Cyclobenzaprine [Flexeril] 1 PO PRN PRN 02/20/18 [History] Ranitidine HCl [Acid Net Wpf Developer] 150 mg PO DAILY 05/05/18 [History] Ascorbic Acid [C-500] 500 mg PO DAILY #30 tablet 05/10/18 [Rx] Cyanocobalamin (B-12) [Vitamin B12] 1,000 mcg PO DAILY #30 tablet 05/10/18 [Rx] Ferrous Sulfate 325 mg PO DAILY #30 tablet 05/10/18 [Rx] Lactobacillus [Culturelle] 1 each PO BID #4 cap.sprink 05/10/18 [Rx] Sulfamethoxazole/Trimeth DS [Bactrim DS] 1 each PO BID #4 tablet 05/10/18 [Rx] Allergies/Adverse Reactions: 3 Allergy/AdvReac Type Severity Reaction Status Date / Time No Known Allergies Allergy Verified 05/05/18 12:54 Date of admission: 05/05/18 14:44 Primary care physician: Sonia Peoples CNP - Constitutional Vitals: Temp Pulse Resp BP Pulse Ox 98.8 F 73 15 138/74 95 05/10/18 06:00 05/10/18 06:00 05/10/18 06:00 05/10/18 06:00 05/10/18 06:00 - Patient Status Disposition: Home, Self-Care Condition: Fair - Discharge Instructions Follow Up With: Sonia Peoples CNP [Primary Care Provider] - - Diet and Activity Activity: resume usual activities as tolerated Diet: advance to your usual diet
[2018-05-10] MEDS: Sulfamethoxazole/Trimeth DS 1 EACH TABLET PO SCH (10:11)
[2018-05-10] MEDS: Aspirin Enteric Coated 81 MG Tablet PO SCH (10:11)
[2018-05-10] MEDS: Multivit/Ca/Min/Fe/FA 1 TAB TABLET PO SCH (10:11)
[2018-05-10] MEDS: Lactobacillus 1 EACH CAP.SPRINK PO SCH (10:12)
[2018-05-10] MEDS: *HR* OxyCODONE Immed Rel 5 MG TABLET PO PRN (14:08)
== END 2018-05-10 15:32 | disposition home or self-care (01) ==
LOC: INPPIK 12:19 → EMEROOPIK 12:19 → INPPIK 15:25
PROVIDERS: ADMIT Internal Medicine; ATTEND Internal Medicine

== ENCOUNTER 2018-08-31 08:44 | Observation (INO) ==
--- NOTE | 2018-08-31 08:58 | Emergency Department Note ---
Disposition Referrals: Sonia Peoples, JAMIE [Primary Care Provider] - Skin/Abscess/FB HPI Chief complaint: ED Skin/Abscess/Foreign Body Stated complaint: RASH/FACIAL SWELLING Time Seen by Provider: 08/31/18 08:53 Source: patient Limitations: no limitations Home Medications Medication Instructions Recorded Confirmed Albuterol Neb [Proventil Neb] 2.5 mg IH Q4HR 10/17/16 08/31/18 Albuterol Sulfate [Proair Hfa] 2 puff IH Q4H PRN 10/17/16 08/31/18 Aspirin [Lo-Dose Aspirin EC] 81 mg PO DAILY 10/17/16 08/31/18 Budesonide/Formoterol 160/4.5 2 puff IH BID 10/17/16 08/31/18 [Symbicort 160/4.5] Insulin DETEMIR [Levemir Flextouch] 7 unit SQ QPM 10/17/16 08/31/18 Mv W-Ca/Iron/FA/Lutein/Hrb#179 1 each PO DAILY 10/17/16 08/31/18 [Bg Multivit For Women Caplet] ALPRAZolam [Xanax 1 MG Tablet] 1 mg PO TID 12/25/17 08/31/18 Empagliflozin [Jardiance] 10 mg PO DAILY 12/25/17 08/31/18 Nitroglycerin [Nitrostat] 0.4 mg SL Q5M PRN 12/25/17 08/31/18 Cyclobenzaprine [Flexeril] 1 tab PO PRN PRN 02/20/18 08/31/18 Ranitidine HCl [Acid Learning Support Specialist] 150 mg PO DAILY 05/05/18 08/31/18 Previous Rx's Medication Instructions Recorded Ascorbic Acid [C-500] 500 mg PO DAILY #30 tablet 05/10/18 Cyanocobalamin (B-12) [Vitamin B12] 1,000 mcg PO DAILY #30 tablet 05/10/18 Ferrous Sulfate 325 mg PO DAILY #30 tablet 05/10/18 Allergies Allergy/AdvReac Type Severity Reaction Status Date / Time No Known Allergies Allergy Verified 05/05/18 12:54 Past Medical History - Past Medical History Medical history: Reports: COPD, coronary artery disease, diabetes, GERD, hypertension, myocardial infarction Surgical history: Reports: appendectomy, cholecystectomy, herniorrhaphy Psychiatric history: Reports: no psych history - Social History Smoking Status: Former smoker Smokeless Tobacco Status: No Alcohol use: Reports: none Drug use: Reports: none Physical Exam - General Limitations: no limitations General appearance: alert, in no apparent distress Course Vital Signs Temperature 98.8 F 08/31/18 08:45 Pulse Rate 110 08/31/18 08:45 Respiratory Rate 18 08/31/18 08:45 Blood Pressure 139/84 08/31/18 08:45 O2 Sat by Pulse Oximetry 94 08/31/18 08:45 Temperature 98.8 F 08/31/18 08:45 Pulse Rate 110 08/31/18 08:45 Respiratory Rate 18 08/31/18 08:45 Blood Pressure 139/84 08/31/18 08:45 O2 Sat by Pulse Oximetry 94 08/31/18 08:45 Oxygen Delivery Oxygen Delivery Room Air
[2018-08-31] MEDS ORDERED: Ondansetron 4 MG/2 ML VIAL IVP ONE ×2 (09:00→11:05)
[2018-08-31] MEDS ORDERED: 0.9 % Sodium Chloride 1,000 ML IVC ONE ×2 (09:00→10:33)
--- NOTE | 2018-08-31 09:03 | Emergency Department Note ---
Disposition Clinical Impression: Gastroenteritis, Elevated lactic acid level, Acute prerenal azotemia Abdominal pain Qualifiers: Abdominal location: upper abdomen, unspecified Qualified Code(s): R10.10 - Upper abdominal pain, unspecified Disposition: Admitted As Inpatient Condition: Fair Time of Disposition: 11:16 Weakness HPI - General Chief complaint: ED Skin/Abscess/Foreign Body Stated complaint: RASH/FACIAL SWELLING Time Seen by Provider: 08/31/18 08:53 Source: patient Limitations: no limitations Nursing Notes Reviewed: Yes Vital Signs Reviewed: Yes - History of Present Illness HPI Narrative: Patient presents saying she is been feeling poorly for about 3 days. She stated to triage she has had a rash on her upper body, upper arms and thighs with some swelling in her malar regions. She relates this has been present but she has had a multitude of other complaints as well. She notes the rash is mainly present just over the last 2 days. She is been feeling poorly though for the 3 days. She reports diffuse body aches and soreness such that her skin even feels sore. She cannot describe otherwise other and she "feels bad all over". She has had chills and sweats but has not checked her temperature. She reports diarrhea in the last 24 hours 2-3 times without blood or mucus. Similarly she states last 24 hours she thrown up about 8 times especially if she tries to eat or drink anything. She states she has had minimal to eat or drink in the last 24 hours. She does feel somewhat weak but has not been otherwise dizzy or presyncopal. She reports abdominal soreness especially across the mid to upper abdomen. This does not radiate to the back. She denies a difficulty with urination. She denies any new cough or shortness of breath but states she has chronic cough and shortness of breath. She does have some frontal headache and sinus pain. She denies any abnormal drainage, sore throat or production of phlegm. She denies neck pain or stiffness. She denies any ill exposures other than family member with strep. She denied any type of sore throat. She denies a recent travel, recent antibiotics or food borne illness. She does indicate previous history of some diverticulitis. She states her flu shot is up-to-date as of August 23. Pt Subjective Complaint: generalized weakness/fatigue Onset (ago): day(s) (3) Duration: gradually worsening Location: generalized Migration: none Pain Severity: moderate (Abdominal) If pain, quality: aching, dull Improves with: none Worsens with: other (Palpation, vomiting) Associated symptoms: Reports: diaphoresis, fever/chills, headaches ("Sinus"), loss of appetite, nausea/vomiting, myalgias, rash (Reticular around chest, upper arms and thighs), shortness of breath (Chronic). Denies: chest pain, confusion, dark stools, dysuria, easy bruising, syncope - Related Data Home Medications Medication Instructions Recorded Confirmed Albuterol Neb [Proventil Neb] 2.5 mg IH Q4HR 10/17/16 08/31/18 Albuterol Sulfate [Proair Hfa] 2 puff IH Q4H PRN 10/17/16 08/31/18 Aspirin [Lo-Dose Aspirin EC] 81 mg PO DAILY 10/17/16 08/31/18 Budesonide/Formoterol 160/4.5 2 puff IH BID 10/17/16 08/31/18 [Symbicort 160/4.5] Insulin DETEMIR [Levemir Flextouch] 7 unit SQ QPM 10/17/16 08/31/18 Mv W-Ca/Iron/FA/Lutein/Hrb#179 1 each PO DAILY 10/17/16 08/31/18 [Bg Multivit For Women Caplet] ALPRAZolam [Xanax 1 MG Tablet] 1 mg PO TID 12/25/17 08/31/18 Empagliflozin [Jardiance] 10 mg PO DAILY 12/25/17 08/31/18 Nitroglycerin [Nitrostat] 0.4 mg SL Q5M PRN 12/25/17 08/31/18 Cyclobenzaprine [Flexeril] 1 tab PO PRN PRN 02/20/18 08/31/18 Ranitidine HCl [Acid Cigarette Machines Mechanic] 150 mg PO DAILY 05/05/18 08/31/18 Previous Rx's Medication Instructions Recorded Ascorbic Acid [C-500] 500 mg PO DAILY #30 tablet 05/10/18 Cyanocobalamin (B-12) [Vitamin B12] 1,000 mcg PO DAILY #30 tablet 05/10/18 Ferrous Sulfate 325 mg PO DAILY #30 tablet 05/10/18 Allergies Allergy/AdvReac Type Severity Reaction Status Date / Time No Known Allergies Allergy Verified 05/05/18 12:54 All systems ED: reviewed and negative except as stated. Past Medical History - Past Medical History Attestation: Yes The following information was validated with the patient. Source: patient, nursing notes reviewed Medical history: Reports: COPD, coronary artery disease, diabetes, GERD, hypertension, kidney stones, myocardial infarction, other (Diverticular disease) Surgical history: Reports: appendectomy, cholecystectomy, coronary bypass (CABG) , herniorrhaphy, hysterectomy, other (Partial gastrectomy, partial small bowel resection, tonsillectomy) Psychiatric history: Reports: no psych history - Social History Smoking Status: Former smoker Smokeless Tobacco Status: No Alcohol use: Reports: none Drug use: Reports: none Physical Exam - General Limitations: no limitations General appearance: alert, in no apparent distress - Head Head exam: atraumatic, normocephalic, normal inspection - Eye Eye exam: Present: normal appearance, PERRL, EOMI. Absent: scleral icterus, conjunctival injection - ENT ENT exam: normal exam, normal oropharynx, mucous membranes moist, other (No retropharyngeal erythema.) - Neck Neck exam: Present: normal inspection, full ROM, trachea midline. Absent: tenderness, meningismus, lymphadenopathy - Chest Chest inspection: Present: normal inspection, symmetric chest wall rise - Respiratory Respiratory exam: Present: normal lung sounds bilaterally. Absent: respiratory distress, wheezes, prolonged expiratory phase - Cardiovascular Cardiovascular exam: Present: regular rate, normal rhythm, tachycardia, normal heart sounds. Absent: JVD - Abdominal Exam Abdominal exam: Present: soft, diminished bowel sounds. Absent: distention, guarding, rebound, rigidity, psoas sign, obturator sign, heel tap sign, Linn' s sign Abdominal tenderness: Present: RUQ, LUQ, epigastrium, moderate - Extremities Exam Extremities exam: Present: normal inspection, full ROM, normal capillary refill. Absent: tenderness, pedal edema - Expanded Lower Extremity Exam Neurovascular/Tendon exam: Present: normal capillary refill. Absent: motor deficit, sensory deficit, tendon deficit Gait: observed and normal - Back Exam Back exam: Present: normal inspection, full ROM. Absent: tenderness, CVA tenderness (R), CVA tenderness (L) - Neurological Exam Neurological exam: Present: alert, oriented X3 - Psychiatric Psychiatric exam: Present: normal affect, normal mood - Skin Skin exam: Present: warm, intact, rash (Reticular mottling on the anterior chest , upper arms and thighs. There is no erythema, blistering, skin sloughing or bruising.), diaphoresis (Mild facial), pallor Course Course Narrative: 909: After history and physical reveals significant anymore complaints than just rash and facial swelling, the patient has been moved to a bed for evaluation with IV fluids, lab, EKG and imaging. 1100: Patient's evaluation is been complete except for the results of her amylase and lipase. We have called the lab and they advised that they have been completed but they have not crossed in the computer. They will try to resend them and have declined to tell us verbally the results. Patient has complained of persistent mid abdominal and upper abdominal pain and has been written for a dose of oxycodone. Given her elevated lactic acid and prerenal status, fluid boluses his have been continued. I do not believe she currently has acute sepsis but does have volume depletion and a gastroenteritis. She is breathing easily with clear breath sounds, has a regular rate and rhythm that has been in the 80s and 90s now, has capillary refill of less than 2 seconds and strong peripheral pulses. Her thighs and upper abdomen still have some reticular skin changes. Upon receipt of laboratory results, care will be discussed with Dr. Worrell for continued observation and hydration. 1107: Patient has had some vomiting with attempt at ingesting the oxycodone. She is been written for a dose of Dilaudid and Zofran. The lab has printed results to our printer at 1105 and it indicates the amylase and lipase are "pending receipt". I have called back to the lab and they advised that they had not been run and it will be another 15-20 minutes 1159: The laboratory has called results of the normal amylase and a normal lipase. They have not yet crossed in the computer. She is been discussed with Dr. Worrell and admitted to the floor in stable condition. Vital Signs Temperature 98.8 F 08/31/18 08:45 Pulse Rate 110 08/31/18 08:45 Respiratory Rate 18 08/31/18 08:45 Blood Pressure 139/84 08/31/18 08:45 O2 Sat by Pulse Oximetry 94 08/31/18 08:45 Temperature 98.8 F 08/31/18 08:45 Pulse Rate 88 08/31/18 11:40 Respiratory Rate 16 08/31/18 11:40 Blood Pressure 118/73 08/31/18 11:40 O2 Sat by Pulse Oximetry 97 08/31/18 11:40 Oxygen Delivery Oxygen Delivery Room Air Weakness - Differential Diagnosis Differential Diagnosis: Likely: anemia, hypoglycemia, sepsis/infection, dehydration, metabolic - Medical Records Medical records reviewed: Yes I reviewed the patient's medical records. - Lab Data Lab results reviewed: Yes I reviewed the patient's lab results. Result diagrams: 08/31/18 09:20 08/31/18 09:20 Lab Results 08/31/18 08/31/18 08/31/18 Range/Units 09:20 09:20 09:20 WBC 14.4 H (4.3-11.1) K/mcL RBC 5.34 H (3.82-4.97) M/mcL Hgb 15.3 (11.5-15.4) g/dL Hct 45.5 H (35.3-44.9) % MCV 85.2 (83.0-100.0) fL MCH 28.7 (28.0-33.3) pg MCHC 33.6 (31.6-35.5) g/dL RDW 14.3 (11.5-14.5) % Plt Count 301 (140-400) K/mcL MPV 11.2 (9.4-12.4) fL Immature Gran % 0.6 (0-4) % Seg Neutrophils % 73.6 % Lymphocytes % 14.6 % Monocytes % 4.4 % Eosinophils % 6.0 % Basophils % 0.8 % Neutrophils # 10.6 H (1.6-8.9) K/mcL Lymphocytes # 2.1 (0.6-4.6) K/mcL Monocytes # 0.6 (0.0-1.3) K/mcL Eosinophils # 0.9 H (0.0-0.6) K/mcL Basophils # 0.1 (0.0-0.2) K/mcL Sodium 139 (136-145) mEq/L Potassium 3.9 (3.5-5.1) mEq/L Chloride 104 (98-107) mEq/L Carbon Dioxide 24 (23-29) mEq/L BUN 28 H (8-23) mg/dL Creatinine 1.09 (0.60-1.20) mg/dL Est GFR ( Amer) > 60 (> 60) Est GFR (Non-Af Amer) 50 L (> 60) BUN/Creatinine Ratio 26 (6-26) Glucose 265 H (70-105) mg/dL Calculated Osmolality 303 H (280-300) Lactic Acid 2.3 H (0.5-2.2) mmol/L Calcium 8.7 (8.6-10.3) mg/dL Total Bilirubin 0.7 (0.3-1.0) mg/dL AST 10 L (13-39) Units/L ALT 7 (7-52) Units/L Alkaline Phosphatase 111 H (34-104) Units/L Troponin I < 0.03 (< 0.04) ng/mL Serum Total Protein 6.6 (6.4-8.9) g/dL Albumin 3.2 L (3.5-5.7) g/dL Globulin 3.4 (2.4-3.5) g/dL Albumin/Globulin Ratio 0.9 L (1.1-2.2) Urine Color (Yellow) Urine Clarity (Clear) Urine pH (5.0-8.0) pH Units Ur Specific [place] (1.010-1.025) Urine Protein (Neg-Trace) mg/dL Urine Glucose (UA) (Normal) mg/dL Urine Ketones (Negative) mg/dL Urine Blood (Negative) Urine Nitrite (Negative) Urine Bilirubin (Negative) Urine Urobilinogen (Normal) mg/dL Ur Leukocyte Esterase (Negative) Urine Microscopic WBC (0-3) per hpf Ur Squamous Epith Cells (None-Few) per lpf Urine Bacteria (None-Few) per hpf Hyaline Casts (None-Few) per lpf Urine Mucus (Few) Ur Culture Indicated? (NO) 08/31/18 08/31/18 Range/Units 10:03 11:28 WBC (4.3-11.1) K/mcL RBC (3.82-4.97) M/mcL Hgb (11.5-15.4) g/dL Hct (35.3-44.9) % MCV (83.0-100.0) fL MCH (28.0-33.3) pg MCHC (31.6-35.5) g/dL RDW (11.5-14.5) % Plt Count (140-400) K/mcL MPV (9.4-12.4) fL Immature Gran % (0-4) % Seg Neutrophils % % Lymphocytes % % Monocytes % % Eosinophils % % Basophils % % Neutrophils # (1.6-8.9) K/mcL Lymphocytes # (0.6-4.6) K/mcL Monocytes # (0.0-1.3) K/mcL Eosinophils # (0.0-0.6) K/mcL Basophils # (0.0-0.2) K/mcL Sodium (136-145) mEq/L Potassium (3.5-5.1) mEq/L Chloride (98-107) mEq/L Carbon Dioxide (23-29) mEq/L BUN (8-23) mg/dL Creatinine (0.60-1.20) mg/dL Est GFR ( Amer) (> 60) Est GFR (Non-Af Amer) (> 60) BUN/Creatinine Ratio (6-26) Glucose (70-105) mg/dL Calculated Osmolality (280-300) Lactic Acid 1.6 (0.5-2.2) mmol/L Calcium (8.6-10.3) mg/dL Total Bilirubin (0.3-1.0) mg/dL AST (13-39) Units/L ALT (7-52) Units/L Alkaline Phosphatase (34-104) Units/L Troponin I (< 0.04) ng/mL Serum Total Protein (6.4-8.9) g/dL Albumin (3.5-5.7) g/dL Globulin (2.4-3.5) g/dL Albumin/Globulin Ratio (1.1-2.2) Urine Color Yellow (Yellow) Urine Clarity Cloudy A (Clear) Urine pH 5.5 (5.0-8.0) pH Units Ur Specific [place] >= 1.030 H (1.010-1.025) Urine Protein 100 H (Neg-Trace) mg/dL Urine Glucose (UA) 100 H (Normal) mg/dL Urine Ketones 15 H (Negative) mg/dL Urine Blood Negative (Negative) Urine Nitrite Negative (Negative) Urine Bilirubin Moderate H (Negative) Urine Urobilinogen 2.0 H (Normal) mg/dL Ur Leukocyte Esterase Negative (Negative) Urine Microscopic WBC 0-3 (0-3) per hpf Ur Squamous Epith Cells Moderate H (None-Few) per lpf Urine Bacteria Many H (None-Few) per hpf Hyaline Casts Few (None-Few) per lpf Urine Mucus Moderate H (Few) Ur Culture Indicated? NO (NO) - Radiology Data Radiology results reviewed: Yes I reviewed the patient's radiology results. Single view chest x-ray is performed. This does not demonstrate evidence for infiltrate, effusion, pneumothorax, foreign body or heart failure. The cardiac silhouette is normal. I do not see abnormality to the osseous structures of the chest. This is on my interpretation. CT is performed of the abdomen and pelvis without IV or oral contrast. Lung windows did not demonstrate pulmonary infiltrate, effusion, mass or pneumothorax. The liver, spleen and pancreas appear normal. I do not see evidence for obstructive uropathy but the patient does have bilateral nephric stones. Patient has sigmoid diverticulosis without evidence for diverticulitis. Bowels without other inflammatory change, obstruction or perforation. The aorta appears normal in caliber. No acute structural abnormality is seen to explain this patient's abdominal pain. This is on my interpretation. Impressions Chest X-Ray 08/31/18 09:00 IMPRESSION: Mild bibasilar atelectasis. D/ / Lucita Enamorado MD / Lucita Enamorado MD Interpreting Provider: Lucita Enamorado MD Abdomen/Pelvis CT 08/31/18 09:01 IMPRESSION: 1. No acute intra-abdominal abnormality to account for the patient's symptoms. 2. Nonobstructing bilateral nephrolithiasis. 3. Severe diverticulosis. 4. Status post hysterectomy, cholecystectomy, partial gastrectomy, and partial small bowel resection. No complication. 5. Severe atherosclerosis. D/ / 08/31/2018 09:47:50 Ml Gurrola MD / gabriela Interpreting Provider: Ml Gurrola MD - EKG Data EKG attestation: Yes I reviewed and interpreted this EKG. EKG shows normal: sinus rhythm, axis, intervals, QRS complexes, ST-T waves Rate: tachycardia (101) Interpretation: no acute changes
[2018-08-31 10:08] LABS: Basophils # 0.1 K/mcL (0.0-0.2); Basophils % 0.8 %; Eosinophils # 0.9 K/mcL (0.0-0.6); Hematocrit 45.5 % (35.3-44.9); Hemoglobin 15.3 g/dL (11.5-15.4); Immature Granulocytes % 0.6 % (0-4); Lymphocytes # 2.1 K/mcL (0.6-4.6); Lymphocytes % 14.6 %; Mean Corpuscular HGB Conc 33.6 g/dL (31.6-35.5); Mean Corpuscular Hemoglobin 28.7 pg (28.0-33.3); Mean Corpuscular Volume 85.2 fL (83.0-100.0); Mean Platelet Volume 11.2 fL (9.4-12.4); Monocytes # 0.6 K/mcL (0.0-1.3); Monocytes % 4.4 %; Neutrophils # 10.6 K/mcL (1.6-8.9); Platelet Count 301 K/mcL (140-400); Red Blood Count 5.34 M/mcL (3.82-4.97); Red Cell Distribution Width 14.3 % (11.5-14.5); Segmented Neutrophils % 73.6 %
[2018-08-31 10:08] LABS: Bilirubin,Urine Moderate (Negative); Blood,Urine Negative (Negative); Clarity,Urine Cloudy (Clear); Color,Urine Yellow (Yellow); Glucose,Urine (UA) 100 mg/dL (Normal); Ketones,Urine 15 mg/dL (Negative); Leukocyte Esterase,Urine Negative (Negative); Nitrite,Urine Negative (Negative); PH,Urine 5.5 pH Units (5.0-8.0); Protein,Urine 100 mg/dL (Neg-Trace); Specific Gravity,Urine >= 1.030 (1.010-1.025)
[2018-08-31 10:28] LABS: Troponin I < 0.03 ng/mL (< 0.04)
[2018-08-31 10:30] LABS: Alanine Aminotransferase 7 Units/L (7-52); Albumin 3.2 g/dL (3.5-5.7); Albumin/Globulin Ratio 0.9 (1.1-2.2); Alkaline Phosphatase 111 Units/L (34-104); Aspartate Amino Transferase 10 Units/L (13-39); BUN/Creatinine Ratio 26 (6-26); Bilirubin,Total 0.7 mg/dL (0.3-1.0); Blood Urea Nitrogen 28 mg/dL (8-23); Calcium 8.7 mg/dL (8.6-10.3); Carbon Dioxide 24 mEq/L (23-29); Chloride 104 mEq/L (98-107); Globulin 3.4 g/dL (2.4-3.5); Glucose 265 mg/dL (70-105); Osmolality,Calculated 303 (280-300); Potassium 3.9 mEq/L (3.5-5.1); Sodium 139 mEq/L (136-145); Total Protein 6.6 g/dL (6.4-8.9); eGFR For Non-African Americans 50 (> 60)
[2018-08-31 10:34] LABS: Bacteria,Urine Many per hpf (None-Few); Hyaline Casts,Urine Few per lpf (None-Few); Mucus,Urine Moderate (Few); Squamous Epithelial Cell,Urine Moderate per lpf (None-Few); WBC,Urine 0-3 per hpf (0-3)
[2018-08-31] MEDS ORDERED: 0.9 % Sodium Chloride 1,000 ML IVC SCH ×2 (10:45→12:00)
[2018-08-31] MEDS ORDERED: *HR* OxyCODONE Immed Rel 5 MG TABLET PO ONE (10:57)
[2018-08-31] MEDS ORDERED: *HR* HYDROmorphone (PF) 1 MG/ML SYRINGE IVP ONE (11:05)
[2018-08-31 11:58] LABS: Amylase 17 Units/L (29-103)
[2018-08-31 11:59] LABS: Lipase < 3 Units/L (11-82)
[2018-08-31] MEDS ORDERED: *HR* OxyCODONE Immed Rel 5 MG TABLET PO PRN (12:00)
[2018-08-31] MEDS ORDERED: Naloxone 0.4 MG/ML INJ IVP PRN (12:00)
[2018-08-31] MEDS ORDERED: *HR* Promethazine 25 MG/ML VIAL IVP PRN (12:00)
[2018-08-31] MEDS ORDERED: Dextrose Gel 15 GM/37.5 ML TUBE PO PRN ×2 (12:00)
[2018-08-31] MEDS ORDERED: Nitroglycerin 0.4 MG TAB.SUBL SL PRN (12:00)
[2018-08-31] MEDS ORDERED: *HR* HYDROmorphone (PF) 1 MG/ML SYRINGE IVP PRN (12:00)
[2018-08-31] MEDS ORDERED: D5% in Water 1,000 ML IVC PRN (12:00)
[2018-08-31] MEDS ORDERED: *HR* Dextrose 50 % in Water (Syg) 50 ML SYRINGE IVP PRN (12:00)
[2018-08-31] MEDS: Insulin LISPRO 300 UNITS/3 ML VIAL SQ SCH ×2 (12:58→16:57)
[2018-08-31] MEDS: Albuterol 2.5 MG/3 ML NEBULIZER IH SCH ×3 (13:15→20:23)
[2018-08-31] MEDS: ALPRAZolam 1 MG TABLET PO SCH ×2 (14:49→21:11)
--- NOTE | 2018-08-31 15:08 | Electrocardiograph Report ---
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
--- NOTE | 2018-08-31 15:24 | Internal Med History&Physical ---
Date of Encounter: 08/31/18 Time of Encounter: 14:50 Assessment and Plan (1) Gastroenteritis Current visit: Yes Status: Acute IV fluids have been ordered and antiemetics will be given as needed. (2) Rash Current visit: Yes Status: Acute Possible secondary to viral infection. Reassess in a.m. (3) B12 deficiency Current visit: No Status: Acute Check B12 level in a.m. (4) Acute prerenal azotemia Current visit: Yes Status: Acute Continue IV fluids and recheck labs in a.m. (5) DM type 2 (diabetes mellitus, type 2) Current visit: Yes Status: Chronic Check hemoglobin A1c in a.m. Continue Jardiance and Levemir with Accu-Cheks and SSI. 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 Laird is a 68 year old female who came to emergency room stating she had 2 -3 day history of diffuse nonpruritic rash on her arms legs and torso. She had diffuse myalgias with sensation of fevers and chills. She had approximate 8 episodes of vomiting and 4-5 episodes of diarrhea without melena, hematochezia, or hematemesis. She felt her face was swollen this morning on awakening so came to emergency room. She was evaluated and admitted to [facility] floor for ongoing care needs. Past Med Surg Social Fam HX - Past Medical History Medical history: COPD, coronary artery disease, diabetes, GERD, hypertension, kidney stones, myocardial infarction, other Additional medical history: kidney stone Psychiatric history: depression - Past Surgical History Surgical History: appendectomy, cholecystectomy, coronary bypass (CABG), herniorrhaphy, hysterectomy, other Additional surgical history: triple bipass, T&A - Social History Smoking Status: Former smoker Smokeless Tobacco Status: No Alcohol use: none Drug use: none - Family History Mother Living Status: Hx Family Cancer: Yes Father Living Status: Hx Family Cancer: Yes Internal Medicine - H&P: Meds Albuterol Neb [Proventil Neb] 2.5 mg IH Q4HR 10/17/16 [History] Albuterol Sulfate [Proair Hfa] 2 puff IH Q4H PRN 10/17/16 [History] Aspirin [Lo-Dose Aspirin EC] 81 mg PO DAILY 10/17/16 [History] Budesonide/Formoterol 160/4.5 [Symbicort 160/4.5] 2 puff IH BID 10/17/16 [ History] Insulin DETEMIR [Levemir Flextouch] 7 unit SQ QPM 10/17/16 [History] Mv W-Ca/Iron/FA/Lutein/Hrb#179 [Bg Multivit For Women Caplet] 1 each PO DAILY 10/17/16 [History] ALPRAZolam [Xanax 1 MG Tablet] 1 mg PO TID 12/25/17 [History] Empagliflozin [Jardiance] 10 mg PO DAILY 12/25/17 [History] Nitroglycerin [Nitrostat] 0.4 mg SL Q5M PRN 12/25/17 [History] Cyclobenzaprine [Flexeril] 1 tab PO PRN PRN 02/20/18 [History] Ranitidine HCl [Acid [employer] Dba] 150 mg PO DAILY 05/05/18 [History] Ascorbic Acid [C-500] 500 mg PO DAILY #30 tablet 05/10/18 [Rx] Cyanocobalamin (B-12) [Vitamin B12] 1,000 mcg PO DAILY #30 tablet 05/10/18 [Rx] Ferrous Sulfate 325 mg PO DAILY #30 tablet 05/10/18 [Rx] 3 Allergy/AdvReac Type Severity Reaction Status Date / Time No Known Allergies Allergy Verified 05/05/18 12:54 All Systems PM: A 10-system review of systems was performed and is negative for pertinent findings except as documented above in the HPI. Review of systems: Review of systems from her April 2018 [facility] hospitalization were reviewed and revised as below. Gen.: Her weight decreased from 73.482 kg on 12/28/2017 to admission weight of 70.307 kg April 2018 but has increased to 79.379 kg on admission now. Cardiovascular: She has history of hypertension. She has known ASHD status post MD followed by three-vessel CABG in 2013. She has not had stress test or repeat heart catheter since the surgery. She denies known heart failure DVT or pulmonary embolus. Respiratory: She has smoked since age 11 up to one pack every 2 weeks. She denies chronic lung disease and does not use home oxygen. GI: She has had cholecystectomy. She denies disorders of her liver or exocrine pancreas : She has had kidney stones in the past with hematuria. She has cystoscopy November 2017 for hydronephrosis without stones seen. She has had frequent UTIs but denies other kidney or bladder disorders. Endocrine: She was diagnosed with DM 2 in 2012. She has hyperlipidemia but denies thyroid disease. Hematology/oncology: She denies blood disorders cancers or anemia. She has history of low B12 level and is on supplemental B12 as well as supplemental iron. She was not anemic in emergency room. Psychiatric: She has anxiety and depression but denies other mental health diagnoses [place] skeletal: She denies arthritis gout or other bone joint or muscle disorders. - Constitutional Vitals: Temp Pulse Resp BP Pulse Ox 97.6 F 94 14 103/64 94 08/31/18 14:48 08/31/18 14:48 08/31/18 14:48 08/31/18 14:48 08/31/18 14:48 Exam: Gen.: She is a well-developed well-nourished female resting comfortably in bed who appears in no acute distress at present time HEENT: Head is atraumatic and normocephalic. Eyes: EOMI. There is no scleral icterus. She has slight periorbital edema. Mouth: Mucosa is moist. Neck: Supple and nontender. There is no thyromegaly or adenopathy noted. Heart: Regular without murmurs gallops or ectopics Lungs: No wheezes or crackles are heard. Abdomen: Soft and nontender. No masses or guarding are noted. Extremities: There is no cyanosis edema or clubbing noted. Dorsalis pedis and posttibial pulses are trace to 1+ palpable bilaterally. She has minimal DJD changes of her hands. Neurologic: Mental status: She is talkative and a good historian. Cranial nerves: Smile is symmetric. Forehead wrinkles bilaterally. Tongue protrudes midline. EOMI. Motor: There is no pronator drift. Cerebellar: Finger to nose is intact bilaterally. Skin: Warm and dry. She has a pale erythematous rash on her abdomen and chest area. No significant involvement is seen on her arms. Internal Med - H&P Results - Labs CBC & Chem 7: 08/31/18 09:20 08/31/18 09:20
[2018-08-31] MEDS: 0.45 % Sodium Chloride w/KCl 20 MEQ/1,000 ML MLS IVC SCH (16:58)
[2018-08-31] MEDS: Acetaminophen 325 MG TABLET PO SCH (16:59)
[2018-08-31] MEDS ORDERED: INSULIN DETEMIR 7 UNIT SQ SCH (18:00)
[2018-08-31] MEDS: Budesonide/Formoterol 160/4.5 1 PUFF INH IH SCH (20:23)
[2018-08-31] MEDS: traZODone 50 MG TABLET PO SCH (21:10)
[2018-08-31] MEDS: Insulin DETEMIR 100 UNIT/ML X5UNITS SQ SCH (21:11)
[2018-09-01] MEDS: 0.45 % Sodium Chloride w/KCl 20 MEQ/1,000 ML MLS IVC SCH ×3 (00:03→14:38)
[2018-09-01] MEDS: Albuterol 2.5 MG/3 ML NEBULIZER IH SCH ×6 (00:20→20:55)
[2018-09-01] MEDS: Acetaminophen 325 MG TABLET PO SCH ×4 (00:27→17:24)
[2018-09-01 05:30] LABS: Basophils # 0.1 K/mcL (0.0-0.2); Basophils % 0.8 %; Eosinophils # 0.9 K/mcL (0.0-0.6); Eosinophils % 8.8 %; Hematocrit 38.9 % (35.3-44.9); Hemoglobin 12.9 g/dL (11.5-15.4); Immature Granulocytes % 0.5 % (0-4); Lymphocytes # 2.4 K/mcL (0.6-4.6); Lymphocytes % 24.7 %; Mean Corpuscular HGB Conc 33.2 g/dL (31.6-35.5); Mean Corpuscular Hemoglobin 28.8 pg (28.0-33.3); Mean Corpuscular Volume 86.8 fL (83.0-100.0); Mean Platelet Volume 11.3 fL (9.4-12.4); Monocytes # 0.6 K/mcL (0.0-1.3); Monocytes % 6.1 %; Neutrophils # 5.7 K/mcL (1.6-8.9); Platelet Count 227 K/mcL (140-400); Red Blood Count 4.48 M/mcL (3.82-4.97); Red Cell Distribution Width 14.6 % (11.5-14.5); Segmented Neutrophils % 59.1 %
[2018-09-01 05:56] LABS: BUN/Creatinine Ratio 30 (6-26); Blood Urea Nitrogen 31 mg/dL (8-23); Calcium 7.9 mg/dL (8.6-10.3); Carbon Dioxide 22 mEq/L (23-29); Chloride 107 mEq/L (98-107); Glucose 209 mg/dL (70-105); Osmolality,Calculated 297 (280-300); Sodium 137 mEq/L (136-145); eGFR For Non-African Americans 54 (> 60)
[2018-09-01] MEDS: Budesonide/Formoterol 160/4.5 1 PUFF INH IH SCH ×2 (08:38→20:55)
[2018-09-01] MEDS: Ondansetron 4 MG/2 ML VIAL IVP PRN (08:43)
[2018-09-01] MEDS: Insulin LISPRO 300 UNITS/3 ML VIAL SQ SCH ×3 (08:45→17:26)
[2018-09-01 08:54] LABS: % Iron Saturation 22 % (15-50); Iron 46 mcg/dL (50-170); Transferrin 152 mg/dL (203-362)
[2018-09-01 09:12] LABS: Ferritin 80 ng/mL (10-120)
--- NOTE | 2018-09-01 11:04 | Internal Med Progress Note ---
Date of Encounter: 09/01/18 Time of Encounter: 10:56 - Assessment and plan (1) Gastroenteritis Current Visit: Yes Status: Acute Assessment and plan: September 01. Continue IV fluids and prn anti-emetics. Possible discharge tomorrow if further improved. (2) Rash Current Visit: Yes Status: Acute Assessment and plan: September 01. Resolving. Continue to observe. (3) B12 deficiency Current Visit: No Status: Acute Assessment and plan: September 01. B12 level normal at 336. (4) Acute prerenal azotemia Current Visit: Yes Status: Acute Assessment and plan: September 01. Creatinine improved to 1.02. Continue IV fluids and recheck labs in a.m. (5) DM type 2 (diabetes mellitus, type 2) Current Visit: Yes Status: Chronic Assessment and plan: September 01. Continue present regimen. 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 She has no new complaints and feels better. She had an episode of vomiting earlier today. - Constitutional Vitals: Temp Pulse Resp BP Pulse Ox 97.5 F L 90 16 97/69 93 09/01/18 06:53 09/01/18 06:53 09/01/18 06:53 09/01/18 06:53 09/01/18 06:53 Exam: She is resting comfortably in bed and appears in no acute distress. Her abdominal rash has lessened. I reviewed her medications and lab results. Internal Medicine: Result - Labs CBC & Chem 7: 09/01/18 05:15 09/01/18 05:15 Labs: Short CBC 09/01/18 Range/Units 05:15 WBC 9.7 (4.3-11.1) K/mcL Hgb 12.9 D (11.5-15.4) g/dL Hct 38.9 (35.3-44.9) % Plt Count 227 (140-400) K/mcL Neutrophils # 5.7 (1.6-8.9) K/mcL BMP 09/01/18 05:15 Sodium 137 Potassium 4.0 Chloride 107 Carbon Dioxide 22 L BUN 31 H Creatinine 1.02 Glucose 209 H Calcium 7.9 L Consult Discharge Plan - Plan Referrals: Sonia Peoples, FLEET SALES MANAGER [Primary Care Provider] - 1 week
[2018-09-01] MEDS: ALPRAZolam 1 MG TABLET PO SCH ×3 (11:51→20:29)
[2018-09-01] MEDS: Famotidine 20 MG TABLET PO SCH (11:52)
[2018-09-01] MEDS: traZODone 50 MG TABLET PO SCH (20:29)
[2018-09-01] MEDS: Insulin DETEMIR 100 UNIT/ML X5UNITS SQ SCH (20:29)
[2018-09-02] MEDS: Albuterol 2.5 MG/3 ML NEBULIZER IH SCH ×4 (00:39→12:45)
[2018-09-02] MEDS: Acetaminophen 325 MG TABLET PO SCH ×3 (00:45→12:02)
[2018-09-02] MEDS: 0.45 % Sodium Chloride w/KCl 20 MEQ/1,000 ML MLS IVC SCH ×2 (00:45→11:55)
[2018-09-02] MEDS: Ondansetron 4 MG/2 ML VIAL IVP PRN ×2 (02:27→08:26)
[2018-09-02 04:42] LABS: Basophils # 0.1 K/mcL (0.0-0.2); Basophils % 0.7 %; Eosinophils # 0.8 K/mcL (0.0-0.6); Eosinophils % 11.8 %; Hematocrit 34.2 % (35.3-44.9); Hemoglobin 11.2 g/dL (11.5-15.4); Immature Granulocytes % 0.7 % (0-4); Lymphocytes # 1.4 K/mcL (0.6-4.6); Lymphocytes % 19.3 %; Mean Corpuscular HGB Conc 32.7 g/dL (31.6-35.5); Mean Corpuscular Hemoglobin 28.4 pg (28.0-33.3); Mean Corpuscular Volume 86.6 fL (83.0-100.0); Mean Platelet Volume 11.4 fL (9.4-12.4); Monocytes # 0.5 K/mcL (0.0-1.3); Monocytes % 7.6 %; Neutrophils # 4.3 K/mcL (1.6-8.9); Platelet Count 198 K/mcL (140-400); Red Blood Count 3.95 M/mcL (3.82-4.97); Red Cell Distribution Width 14.4 % (11.5-14.5); Segmented Neutrophils % 59.9 %
[2018-09-02 05:02] LABS: BUN/Creatinine Ratio 27 (6-26); Blood Urea Nitrogen 23 mg/dL (8-23); Calcium 7.9 mg/dL (8.6-10.3); Carbon Dioxide 21 mEq/L (23-29); Chloride 110 mEq/L (98-107); Glucose 275 mg/dL (70-105); Osmolality,Calculated 299 (280-300); Potassium 4.1 mEq/L (3.5-5.1); Sodium 138 mEq/L (136-145); eGFR For Non-African Americans > 60 (> 60)
[2018-09-02 07:26] VITALS: BP 113/60
[2018-09-02] MEDS: Famotidine 20 MG TABLET PO SCH (08:24)
[2018-09-02] MEDS: ALPRAZolam 1 MG TABLET PO SCH (08:24)
[2018-09-02] MEDS: Insulin LISPRO 300 UNITS/3 ML VIAL SQ SCH ×2 (08:26→12:00)
[2018-09-02] MEDS: Budesonide/Formoterol 160/4.5 1 PUFF INH IH SCH (08:42)
[2018-09-02 09:43] LABS: Estimated Average Glucose 189 mg/dl; Hemoglobin A1C 8.2 %
--- NOTE | 2018-09-02 15:05 | Discharge Summary ---
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 Laird is a 68 year old female who came to emergency room stating she had 2 -3 day history of diffuse nonpruritic rash on her arms legs and torso. She had diffuse myalgias with sensation of fevers and chills. She had approximate 8 episodes of vomiting and 4-5 episodes of diarrhea without melena, hematochezia, or hematemesis. She felt her face was swollen this morning on awakening so came to emergency room. She was evaluated and admitted to [facility] floor for ongoing care needs. Initial orders were written by the emergency room physician. I saw her on August 31 and performed the history and physical. She was given IV fluids. Anti-emetics were used as needed. Vomiting essentially resolved by the time of discharge. WBC normalized to 7.1 with no left shift by day of discharge. Azotemia resolved with BUN and creatinine improving to 23 and 0.85 respectively by day of discharge with estimated GFR greater than 60. Hemoglobin A1c was slightly above desirable range at 8.2%. On September 02 she felt stable for discharge home. She will follow with her PCP Sonia Peoples CNP within 1 week. - Time Spent with Patient Total time spent providing and/or coordinating discharge services: - Discharge Medications Home Medications: Albuterol Neb [Proventil Neb] 2.5 mg IH Q4HR 10/17/16 [History] Albuterol Sulfate [Proair Hfa] 2 puff IH Q4H PRN 10/17/16 [History] Aspirin [Lo-Dose Aspirin EC] 81 mg PO DAILY 10/17/16 [History] Budesonide/Formoterol 160/4.5 [Symbicort 160/4.5] 2 puff IH BID 10/17/16 [ History] Insulin DETEMIR [Levemir Flextouch] 7 unit SQ QPM 10/17/16 [History] Mv W-Ca/Iron/FA/Lutein/Hrb#179 [Bg Multivit For Women Caplet] 1 each PO DAILY 10/17/16 [History] ALPRAZolam [Xanax 1 MG Tablet] 1 mg PO TID 12/25/17 [History] Empagliflozin [Jardiance] 10 mg PO DAILY 12/25/17 [History] Nitroglycerin [Nitrostat] 0.4 mg SL Q5M PRN 12/25/17 [History] Cyclobenzaprine [Flexeril] 1 tab PO PRN PRN 02/20/18 [History] Ranitidine HCl [Acid Material Handling Warehouse Supervisor] 150 mg PO DAILY 05/05/18 [History] Ascorbic Acid [C-500] 500 mg PO DAILY #30 tablet 05/10/18 [Rx] Cyanocobalamin (B-12) [Vitamin B12] 1,000 mcg PO DAILY #30 tablet 05/10/18 [Rx] Ferrous Sulfate 325 mg PO DAILY #30 tablet 05/10/18 [Rx] Allergies/Adverse Reactions: 3 Allergy/AdvReac Type Severity Reaction Status Date / Time No Known Allergies Allergy Verified 05/05/18 12:54 Date of admission: 08/31/18 11:30 Primary care physician: Sonia Peoples CNP - Constitutional Vitals: Temp Pulse Resp BP Pulse Ox 97.7 F 84 16 113/60 92 09/02/18 07:24 09/02/18 07:24 09/02/18 08:42 09/02/18 07:24 09/02/18 08:42 - Patient Status Disposition: Home, Self-Care Condition: Fair - Discharge Instructions Follow Up With: Sonia Peoples CNP [Primary Care Provider] - 1 week - Diet and Activity Activity: resume usual activities as tolerated Diet: advance to your usual diet
== END 2018-09-02 15:48 | disposition home or self-care (01) ==
LOC: EMEROOPIK 08:44 → INPPIK 08:44
PROVIDERS: ADMIT Internal Medicine; ATTEND Internal Medicine

== ENCOUNTER 2019-01-01 08:52 | Observation (INO) ==
--- NOTE | 2019-01-01 09:03 | Emergency Department Note ---
Disposition Clinical Impression: COPD exacerbation Disposition: Home, Self-Care Condition: Fair URI/Sore Throat HPI - General Chief Complaint: ED Upper Respiratory Infection Stated Complaint: cough, SOB Time Seen by Provider: 01/01/19 08:59 Source: patient Mode of arrival: other ([employer] bus) Limitations: no limitations Nursing Notes Reviewed: Yes Vital Signs Reviewed: Yes - History of Present Illness HPI Narrative: Patient relates that she has had increased cough for 4 days. She states the cough is productive of yellowish phlegm and she will cough occasionally to the point of gagging. She did have some fevers and chills 2 days ago and documented a temperature of 102. She had taken Tylenol has not had subsequent fever. She has had general malaise and "aches all over". She relates she is mainly been in bed except get up to eat or to go to the bathroom for the last couple days. She denies any other abdominal pains, nausea or vomiting but she has had a little bit of diarrhea. She has not had blood or mucus in stool. She denies any chest pain or palpitations. She states that she is just sore all over. She relates a history of COPD but is not on oxygen. She is been doing aerosols 4 times a day as well as her hand held inhaler. She relates that she has had exposure to "the grandkids who are all sick". Pt Subjective Complaint: fever, cough, flu symptoms Onset (ago): day(s) (4) Duration: constant Severity: moderate Improves with: rest Worsens with: exertion If sputum, description: yellow Context: sick contacts Associated symptoms: Reports: fever (Tuesday only), chills, myalgias, headache, cough, shortness of breath, diarrhea. Denies: diaphoresis, rhinorrhea, nasal congestion, sore throat, stiff neck, chest pain, abdominal pain, nausea, vomiting, dysuria, rash, epistaxis, ear pain Treatments prior to arrival: acetaminophen - Related Data Home Medications Medication Instructions Recorded Confirmed Albuterol Neb [Proventil Neb] 2.5 mg IH Q4HR 10/17/16 01/01/19 Albuterol Sulfate [Proair Hfa] 2 puff IH Q4H PRN 10/17/16 01/01/19 Aspirin [Lo-Dose Aspirin EC] 81 mg PO DAILY 10/17/16 01/01/19 Budesonide/Formoterol 160/4.5 2 puff IH BID 10/17/16 01/01/19 [Symbicort 160/4.5] Insulin DETEMIR [Levemir Flextouch] 7 unit SQ QPM 10/17/16 01/01/19 Mv W-Ca/Iron/FA/Lutein/Hrb#179 1 each PO DAILY 10/17/16 01/01/19 [Bg Multivit For Women Caplet] ALPRAZolam [Xanax 1 MG Tablet] 1 mg PO TID 12/25/17 01/01/19 Empagliflozin [Jardiance] 10 mg PO DAILY 12/25/17 01/01/19 Nitroglycerin [Nitrostat] 0.4 mg SL Q5M PRN 12/25/17 01/01/19 Cyclobenzaprine [Flexeril] 1 tab PO PRN PRN 02/20/18 01/01/19 Ranitidine HCl [Acid Sleeping Car Conductor] 150 mg PO DAILY 05/05/18 01/01/19 Previous Rx's Medication Instructions Recorded Ascorbic Acid [C-500] 500 mg PO DAILY #30 tablet 05/10/18 Cyanocobalamin (B-12) [Vitamin B12] 1,000 mcg PO DAILY #30 tablet 05/10/18 Ferrous Sulfate 325 mg PO DAILY #30 tablet 05/10/18 Allergies Allergy/AdvReac Type Severity Reaction Status Date / Time No Known Allergies Allergy Verified 05/05/18 12:54 All systems ED: reviewed and negative except as stated. URI PMH - Past Medical History Medical history: Reports: COPD, coronary artery disease, diabetes, GERD, hypertension, kidney stones, myocardial infarction Surgical history: Reports: tonsilectomy Surgical history: Reports: appendectomy, cholecystectomy, coronary bypass (CABG), herniorrhaphy, hysterectomy Psychiatric history: Reports: depression - Social History Smoking Status: Former smoker Alcohol use: Reports: none Drug use: Reports: none Physical Exam - General Limitations: no limitations General appearance: alert, in no apparent distress - Head Head exam: atraumatic, normocephalic, normal inspection - Eye Eye exam: Present: normal appearance, PERRL, EOMI. Absent: conjunctival injection - ENT ENT exam: normal exam, normal oropharynx, mucous membranes moist - Neck Neck exam: Present: normal inspection, full ROM, trachea midline. Absent: tenderness, lymphadenopathy - Chest Chest inspection: Present: normal inspection, symmetric chest wall rise. Absent: tenderness - Respiratory Respiratory exam: Present: wheezes, prolonged expiratory phase. Absent: respiratory distress, accessory muscle use - Cardiovascular Cardiovascular exam: Present: regular rate, normal rhythm, normal heart sounds - Abdominal Exam Abdominal exam: Present: soft, Non-Tender, normal bowel sounds. Absent: tenderness, distention, guarding, rebound, rigidity - Extremities Exam Extremities exam: Present: normal inspection, full ROM, normal capillary refill. Absent: tenderness, pedal edema, calf tenderness - Expanded Lower Extremity Exam Neurovascular/Tendon exam: Present: normal capillary refill. Absent: motor deficit, sensory deficit, tendon deficit Gait: observed and normal - Neurological Exam Neurological exam: Present: alert, oriented X3, normal gait - Psychiatric Psychiatric exam: Present: normal affect, normal mood - Skin Skin exam: Present: warm, dry, intact, normal color. Absent: cyanosis, diaphoresis, pallor Course Course Narrative: Patient was evaluated immediately on arrival. A DuoNeb aerosol has been ordered as well as a dose of prednisone and an Accu-Chek. Chest x-ray and an influenza swab has been ordered. Clinically she appears to have an exacerbation of COPD. 0950: The patient is remained with an oxygen saturation around 92% on 2 L nasal cannula. Her chest x-ray does not demonstrate an underlying infiltrate or overt failure. She has completed a DuoNeb aerosol and continues with baseline dyspnea and a congested cough. I do not believe that she will do well with discharge to home at this time and I will discuss care with Dr. Worrell for inpatient observation. We are establishing an IV to start intravenous Rocephin and azithromycin. Baseline blood work and blood cultures have been ordered. Vital Signs O2 Sat by Pulse Oximetry 92 01/01/19 08:53 Temperature 98 F 01/01/19 08:59 Pulse Rate 98 01/01/19 10:00 Respiratory Rate 20 01/01/19 10:00 Blood Pressure 157/91 01/01/19 10:00 O2 Sat by Pulse Oximetry 90 01/01/19 10:00 Oxygen Delivery Oxygen Delivery Nasal Cannula Upper Respiratory Infection - Differential Diagnosis Differential Diagnosis: Likely: upper respiratory infection, other viral infection, influenza, pneumonia - Medical Records Medical records reviewed: Yes I reviewed the patient's medical records. - Lab Data Lab results reviewed: Yes I reviewed the patient's lab results. Lab results narrative: Influenza A and influenza B are negative. BNP is 129 Result diagrams: 01/01/19 10:20 01/01/19 10:20 - Radiology Data Radiology results reviewed: Yes I reviewed the patient's radiology results. Single view chest x-ray is performed. This does not demonstrate evidence for infiltrate, effusion, pneumothorax, foreign body or heart failure. The cardiac silhouette is normal. I do not see abnormality to the osseous structures of the chest. This is on my interpretation. Impressions Chest X-Ray 01/01/19 09:04 IMPRESSION: 1. Increased pulmonary vascular congestion. D/ / Steve Keene MD / Steve Keene MD Interpreting Provider: Steve Keene MD
[2019-01-01] MEDS ORDERED: Ipratropium/Albuterol Neb 3 ML IH ONE (09:04)
[2019-01-01] MEDS ORDERED: predniSONE 20 MG TABLET PO ONE (09:04)
[2019-01-01] MEDS ORDERED: cefTRIAXone 2,000 MG in 0.9 % Sodium Chloride Mini Bag 100 ML IVPB ONE (09:50)
[2019-01-01] MEDS ORDERED: Azithromycin 500 MG in D5% in Water 250 ML IVPB ONE (09:50)
[2019-01-01] MEDS ORDERED: 0.9 % Sodium Chloride 1,000 ML IVC SCH ×2 (10:00→11:59)
[2019-01-01] MEDS ORDERED: Acetaminophen 325 MG TABLET PO ONE (10:16)
[2019-01-01 10:27] LABS: Basophils % 0.4 %; Eosinophils % 0.1 %; Hematocrit 40.9 % (35.3-44.9); Hemoglobin 13.7 g/dL (11.5-15.4); Immature Granulocytes % 0.5 % (0-4); Mean Corpuscular HGB Conc 33.5 g/dL (31.6-35.5); Mean Corpuscular Hemoglobin 27.7 pg (28.0-33.3); Mean Corpuscular Volume 82.6 fL (83.0-100.0); Mean Platelet Volume 11.5 fL (9.4-12.4); Monocytes # 0.8 K/mcL (0.0-1.3); Monocytes % 9.7 %; Neutrophils # 5.9 K/mcL (1.6-8.9); Platelet Count 226 K/mcL (140-400); Red Blood Count 4.95 M/mcL (3.82-4.97); Red Cell Distribution Width 13.8 % (11.5-14.5); Segmented Neutrophils % 76.3 %
[2019-01-01 10:37] LABS: BUN/Creatinine Ratio 39 (6-26); Blood Urea Nitrogen 25 mg/dL (8-23); Calcium 9.2 mg/dL (8.6-10.3); Carbon Dioxide 27 mEq/L (23-29); Chloride 99 mEq/L (98-107); Glucose 203 mg/dL (70-105); Osmolality,Calculated 296 (280-300); Potassium 3.3 mEq/L (3.5-5.1); Sodium 138 mEq/L (136-145); eGFR For Non-African Americans > 60 (> 60)
[2019-01-01] MEDS ORDERED: Albuterol 2.5 MG/3 ML NEBULIZER IH PRN (11:59)
[2019-01-01] MEDS ORDERED: D5% in Water 1,000 ML IVC PRN (11:59)
[2019-01-01] MEDS ORDERED: Naloxone 0.4 MG/ML INJ IVP PRN (11:59)
[2019-01-01] MEDS ORDERED: *HR* Dextrose 50 % in Water (Syg) 50 ML SYRINGE IVP PRN (11:59)
[2019-01-01] MEDS ORDERED: Dextrose Gel 15 GM/37.5 ML TUBE PO PRN ×2 (11:59)
--- NOTE | 2019-01-01 15:27 | Internal Med History&Physical ---
Date of Encounter: 01/01/19 Time of Encounter: 15:05 Assessment and Plan (1) COPD exacerbation Current visit: Yes Status: Acute She was started on Rocephin and Zithromax with steroids in emergency room. These will be continued with lactobacillus. Most recent chest CT was 05/05/2018 and showed no worrisome pathology for malignancy. (2) Gastroenteritis Current visit: No Status: Acute IV fluids will be given and anti-emetics used as needed. (3) Hypokalemia Current visit: Yes Status: Acute Supplemental potassium will be ordered. (4) Microcytosis Current visit: Yes Status: Acute Iron profile will be checked in a.m. (5) B12 deficiency Current visit: No Status: Acute B12 level was low at 195 on 12/11/2018. Recheck in a.m. Internal Medicine - H&P: HPI Chief complaint: Cough, vomiting, diarrhea Admitted From: Emergency Dept Plans for Post Hospital Care: Home History of present illness: Ms. Laird is a 68 year old female who came to emergency room stating she had 4 day history of cough productive of thick yellow sputum. She denies hemoptysis. She reports poor oral intake with multiple episodes of dry heaving. She reports nonbloody diarrhea for 3 days with fevers and chills. She states 3 grandchildren have similar symptoms. She came to emergency room and was evaluated and was felt to have exacerbation of COPD. She was admitted to [facility] floor for ongoing care needs. Past Med Surg Social Fam HX - Past Medical History Medical history: COPD, coronary artery disease, diabetes, GERD, hypertension, kidney stones, myocardial infarction Additional medical history: kidney stone Psychiatric history: depression - Past Surgical History Surgical History: appendectomy, cholecystectomy, coronary bypass (CABG), herniorrhaphy, hysterectomy Additional surgical history: triple bipass, T&A - Social History Smoking Status: Former smoker Smokeless Tobacco Status: No Alcohol use: none Drug use: none - Family History Mother Living Status: Hx Family Cancer: Yes Father Living Status: Hx Family Cancer: Yes Internal Medicine - H&P: Meds Albuterol Neb [Proventil Neb] 2.5 mg IH Q4HR 10/17/16 [History] Albuterol Sulfate [Proair Hfa] 2 puff IH Q4H PRN 11/20/16 [History] Aspirin [Lo-Dose Aspirin EC] 81 mg PO DAILY 10/17/16 [History] Budesonide/Formoterol 160/4.5 [Symbicort 160/4.5] 2 puff IH BID 10/17/16 [History] Insulin DETEMIR [Levemir Flextouch] 7 unit SQ QPM 10/17/16 [History] Mv W-Ca/Iron/FA/Lutein/Hrb#179 [Bg Multivit For Women Caplet] 1 each PO DAILY 10/17/16 [History] ALPRAZolam [Xanax 1 MG Tablet] 1 mg PO TID 12/25/17 [History] Empagliflozin [Jardiance] 10 mg PO DAILY 12/25/17 [History] Nitroglycerin [Nitrostat] 0.4 mg SL Q5M PRN 12/25/17 [History] Cyclobenzaprine [Flexeril] 1 tab PO PRN PRN 02/20/18 [History] Ranitidine HCl [Acid Cook Cashier [employer]] 150 mg PO DAILY 05/05/18 [History] Ascorbic Acid [C-500] 500 mg PO DAILY #30 tablet 05/10/18 [Rx] Cyanocobalamin (B-12) [Vitamin B12] 1,000 mcg PO DAILY #30 tablet 05/10/18 [Rx] Ferrous Sulfate 325 mg PO DAILY #30 tablet 05/10/18 [Rx] Allergy/AdvReac Type Severity Reaction Status Date / Time No Known Allergies Allergy Verified 05/05/18 12:54 All Systems PM: A 10-system review of systems was performed and is negative for pertinent findings except as documented above in the HPI. Review of systems: Review of systems from her August 2018 [facility] hospitalization were reviewed and revised as below. Gen.: Her weight decreased from 73.482 kg on 12/28/2017 to admission weight of 70.307 kg April 2018 but increased to 79.379 kg on admission August 2018. No current weight is recorded. Cardiovascular: She has history of hypertension. She has known ASHD status post OK followed by three-vessel CABG in 2013. She has not had stress test or repeat heart catheter since the surgery. She denies known heart failure DVT or pulmonary embolus. Respiratory: She has smoked since age 11 up to one pack every 2 weeks. She denies chronic lung disease and does not use home oxygen. GI: She has had cholecystectomy. She denies disorders of her liver or exocrine pancreas : She has had kidney stones in the past with hematuria. She has cystoscopy November 2017 for hydronephrosis without stones seen. She has had frequent UTIs but denies other kidney or bladder disorders. Endocrine: She was diagnosed with DM 2 in 2012. She has hyperlipidemia but denies thyroid disease. Hematology/oncology: She denies blood disorders cancers or anemia. She has history of low B12 level and is on supplemental B12 as well as supplemental iron. She was not anemic in emergency room. Psychiatric: She has anxiety and depression but denies other mental health diagnoses [place] skeletal: She denies arthritis gout or other bone joint or muscle disorders. - Constitutional Vitals: Temp Pulse Resp BP Pulse Ox 98 F 96 18 146/99 93 01/01/19 08:59 01/01/19 11:00 01/01/19 11:00 01/01/19 11:00 01/01/19 11:00 Exam: Gen.: She is a well-developed well-nourished female lying in bed who appears slightly dyspneic. HEENT: Head is atraumatic and normocephalic. Eyes: EOMI. There is no scleral icterus. Mouth: Mucosa is moist. Neck: Supple and nontender. There is no thyromegaly or adenopathy noted. Heart: Regular without murmurs gallops or ectopics Lungs: She has prolonged expiratory phase and mild diffuse wheezing. She has egophony in the left posterior lung grimm. Abdomen: Soft and nontender. No masses or guarding are noted. Extremities: There is no cyanosis edema or clubbing noted. Dorsalis pedis and posterior tibial pulses are trace to 1+ palpable bilaterally. Neurologic: Mental status: She is talkative and a good historian. Cranial nerves: Smile is symmetric. Forehead wrinkles bilaterally. Tongue protrudes midline. EOMI. Motor: There is no pronator drift. Cerebellar: Finger to nose is intact bilaterally. Skin: Warm and dry Internal Med - H&P Results - Labs CBC & Chem 7: 01/01/19 10:20 01/01/19 10:20 Labs: Short CBC 01/01/19 Range/Units 10:20 WBC 7.8 (4.3-11.1) K/mcL Hgb 13.7 (11.5-15.4) g/dL Hct 40.9 (35.3-44.9) % Plt Count 226 (140-400) K/mcL Neutrophils # 5.9 (1.6-8.9) K/mcL BMP 01/01/19 10:20 Sodium 138 Potassium 3.3 L Chloride 99 Carbon Dioxide 27 BUN 25 H Creatinine 0.64 Glucose 203 H Calcium 9.2 - Impressions ITS Impressions Chest X-Ray 01/01/19 09:04 IMPRESSION: 1. Increased pulmonary vascular congestion. D/ / Steve Keene MD / Steve Keene MD Interpreting Provider: Steve Keene MD
[2019-01-01] MEDS ORDERED: traZODone 50 MG TABLET PO PRN (15:40)
[2019-01-01] MEDS: Ipratropium/Albuterol Neb 3 ML IH SCH ×2 (15:59→21:27)
[2019-01-01] MEDS: Budesonide/Formoterol 160/4.5 1 PUFF INH IH SCH ×2 (17:52→21:27)
[2019-01-01] MEDS: Insulin LISPRO 300 UNITS/3 ML VIAL SQ SCH ×2 (18:01→18:04)
[2019-01-01] MEDS: predniSONE 20 MG TABLET PO SCH (18:04)
[2019-01-01] MEDS: 0.45 % Sodium Chloride w/KCl 20 MEQ/1,000 ML MLS IVC SCH (18:05)
[2019-01-01] MEDS: Mag Hydrox/Al Hydrox/Simeth 30 ML UDC PO PRN (18:11)
[2019-01-01] MEDS: Ondansetron ODT 4 MG TAB.RAPDIS SL PRN (18:11)
[2019-01-01] MEDS: Lactobacillus 1 EACH CAP.SPRINK PO SCH (21:24)
[2019-01-01] MEDS: ALPRAZolam 1 MG TABLET PO SCH (21:24)
[2019-01-02] MEDS: 0.45 % Sodium Chloride w/KCl 20 MEQ/1,000 ML MLS IVC SCH ×2 (04:00→14:57)
[2019-01-02] MEDS: Ipratropium/Albuterol Neb 3 ML IH SCH ×4 (04:03→21:15)
[2019-01-02 07:13] LABS: Alanine Aminotransferase 9 Units/L (7-52); Albumin 3.5 g/dL (3.5-5.7); Albumin/Globulin Ratio 1.2 (1.1-2.2); Alkaline Phosphatase 84 Units/L (34-104); Aspartate Amino Transferase 14 Units/L (13-39); BUN/Creatinine Ratio 39 (6-26); Bilirubin,Total 0.3 mg/dL (0.3-1.0); Blood Urea Nitrogen 20 mg/dL (8-23); Calcium 8.6 mg/dL (8.6-10.3); Carbon Dioxide 31 mEq/L (23-29); Chloride 103 mEq/L (98-107); Glucose 213 mg/dL (70-105); Osmolality,Calculated 301 (280-300); Potassium 3.5 mEq/L (3.5-5.1); Sodium 141 mEq/L (136-145); Total Protein 6.5 g/dL (6.4-8.9); eGFR For Non-African Americans > 60 (> 60)
[2019-01-02] MEDS: Insulin LISPRO 300 UNITS/3 ML VIAL SQ SCH ×3 (09:07→16:41)
[2019-01-02] MEDS: predniSONE 20 MG TABLET PO SCH ×2 (09:08→16:41)
[2019-01-02] MEDS: ALPRAZolam 1 MG TABLET PO SCH ×3 (09:08→21:33)
[2019-01-02] MEDS: cefTRIAXone 2,000 MG in Water for inj. (sterile) 20 ML 20 ML IVPB SCH (09:08)
[2019-01-02] MEDS: Lactobacillus 1 EACH CAP.SPRINK PO SCH ×2 (09:08→21:33)
[2019-01-02] MEDS: Azithromycin 500 MG in D5% in Water 250 ML IVPB SCH (09:09)
[2019-01-02] MEDS: Mag Hydrox/Al Hydrox/Simeth 30 ML UDC PO PRN (09:12)
[2019-01-02] MEDS: Ondansetron ODT 4 MG TAB.RAPDIS SL PRN (09:12)
[2019-01-02 09:26] LABS: % Iron Saturation 13 % (15-50); Iron 43 mcg/dL (50-170); Transferrin 229 mg/dL (203-362)
[2019-01-02 09:44] LABS: Ferritin 69 ng/mL (10-120)
[2019-01-02 09:48] LABS: Vitamin B12 453 pg/mL (250-1100)
[2019-01-02] MEDS: Budesonide/Formoterol 160/4.5 1 PUFF INH IH SCH ×2 (09:48→21:15)
[2019-01-02 09:51] LABS: Folate > 22.3 ng/mL (3.0-16.0)
--- NOTE | 2019-01-02 09:59 | Internal Med Progress Note ---
Date of Encounter: 01/02/19 Time of Encounter: 09:45 - Assessment and plan (1) COPD exacerbation Current Visit: Yes Status: Acute Assessment and plan: January 02. Continue Rocephin, Zithromax, steroids, and lactobacillus. (2) Gastroenteritis Current Visit: No Status: Acute Assessment and plan: January 02. Continue IV fluids and give antiemetics as needed. (3) Hypokalemia Current Visit: Yes Status: Acute Assessment and plan: January 02. Potassium normal at 3.5. Continue supplemental potassium. (4) Microcytosis Current Visit: Yes Status: Acute Assessment and plan: January 02. Iron profile shows iron 43, transferrin saturation 13%, transferrin 229, and ferritin 69. Start ferrous sulfate with vitamin C in a.m. (5) B12 deficiency Current Visit: No Status: Acute Assessment and plan: January 02. B12 level normal at 453. (6) Sore throat Current Visit: Yes Status: Acute Assessment and plan: January 02. Cepacol lozenges will be ordered. - Subjective Interval history: January 02. She has no new complaints except sore throat. She feels minimally improved overall. - Constitutional Vitals: Temp Pulse Resp BP Pulse Ox 98.0 F 92 16 146/74 93 01/02/19 06:23 01/02/19 06:23 01/02/19 06:23 01/02/19 06:23 01/02/19 06:23 Exam: She is lying in bed and appears to have slight dyspnea. She is wearing oxygen by nasal cannula. Her voice is somewhat hoarse. I reviewed her medications and lab results. Internal Medicine: Result - Labs CBC & Chem 7: 01/01/19 10:20 01/02/19 06:45 Labs: Short CBC 01/01/19 Range/Units 10:20 WBC 7.8 (4.3-11.1) K/mcL Hgb 13.7 (11.5-15.4) g/dL Hct 40.9 (35.3-44.9) % Plt Count 226 (140-400) K/mcL Neutrophils # 5.9 (1.6-8.9) K/mcL BMP 01/01/19 01/02/19 10:20 06:45 Sodium 138 141 Potassium 3.3 L 3.5 Chloride 99 103 Carbon Dioxide 27 31 H BUN 25 H 20 Creatinine 0.64 0.51 L Glucose 203 H 213 H Calcium 9.2 8.6 Liver Function 01/02/19 Range/Units 06:45 Total Bilirubin 0.3 (0.3-1.0) mg/dL AST 14 (13-39) Units/L ALT 9 (7-52) Units/L Alkaline Phosphatase 84 (34-104) Units/L Albumin 3.5 (3.5-5.7) g/dL Consult Discharge Plan - Plan Referrals: Sonia Peoples, JAMIE [Primary Care Provider] - 1 week
[2019-01-03] MEDS: 0.45 % Sodium Chloride w/KCl 20 MEQ/1,000 ML MLS IVC SCH ×4 (01:17→22:59)
[2019-01-03] MEDS: Ipratropium/Albuterol Neb 3 ML IH SCH ×4 (03:59→22:50)
[2019-01-03 05:50] LABS: Basophils % 0.4 %; Eosinophils % 0.1 %; Hemoglobin 12.7 g/dL (11.5-15.4); Immature Granulocytes % 1.8 % (0-4); Lymphocytes # 1.5 K/mcL (0.6-4.6); Lymphocytes % 16.4 %; Mean Corpuscular HGB Conc 32.6 g/dL (31.6-35.5); Mean Corpuscular Hemoglobin 28.3 pg (28.0-33.3); Mean Corpuscular Volume 87.1 fL (83.0-100.0); Mean Platelet Volume 11.7 fL (9.4-12.4); Monocytes # 0.7 K/mcL (0.0-1.3); Monocytes % 7.3 %; Neutrophils # 6.8 K/mcL (1.6-8.9); Platelet Count 222 K/mcL (140-400); Red Blood Count 4.48 M/mcL (3.82-4.97); Red Cell Distribution Width 14.3 % (11.5-14.5)
[2019-01-03 06:12] LABS: BUN/Creatinine Ratio 23 (6-26); Blood Urea Nitrogen 14 mg/dL (8-23); Calcium 8.9 mg/dL (8.6-10.3); Carbon Dioxide 32 mEq/L (23-29); Chloride 101 mEq/L (98-107); Glucose 166 mg/dL (70-105); Osmolality,Calculated 294 (280-300); Potassium 3.8 mEq/L (3.5-5.1); Sodium 140 mEq/L (136-145); eGFR For Non-African Americans > 60 (> 60)
[2019-01-03] MEDS: Ascorbic Acid 500 MG TABLET PO SCH (06:49)
[2019-01-03] MEDS: predniSONE 20 MG TABLET PO SCH ×2 (08:08→16:13)
[2019-01-03] MEDS: ALPRAZolam 1 MG TABLET PO SCH ×3 (08:08→21:51)
[2019-01-03] MEDS: Lactobacillus 1 EACH CAP.SPRINK PO SCH ×2 (08:09→21:51)
[2019-01-03] MEDS: Insulin LISPRO 300 UNITS/3 ML VIAL SQ SCH ×3 (08:13→16:49)
[2019-01-03] MEDS: Budesonide/Formoterol 160/4.5 1 PUFF INH IH SCH ×2 (10:18→22:50)
[2019-01-03] MEDS: Azithromycin 500 MG in D5% in Water 250 ML IVPB SCH (10:55)
--- NOTE | 2019-01-03 10:55 | Internal Med Progress Note ---
Date of Encounter: 01/03/19 Time of Encounter: 10:48 - Assessment and plan (1) COPD exacerbation Current Visit: Yes Status: Acute Assessment and plan: January 02. Continue Rocephin, Zithromax, steroids, and lactobacillus. (2) Gastroenteritis Current Visit: No Status: Acute Assessment and plan: January 02. Continue IV fluids and give antiemetics as needed. (3) Hypokalemia Current Visit: Yes Status: Acute Assessment and plan: January 02. Potassium normal at 3.5. Continue supplemental potassium. January 03. Potassium further improved to 3.8. Continue present regimen. (4) Microcytosis Current Visit: Yes Status: Acute Assessment and plan: January 02. Iron profile shows iron 43, transferrin saturation 13%, transferrin 229, and ferritin 69. Start ferrous sulfate with vitamin C in a.m. (5) B12 deficiency Current Visit: No Status: Acute Assessment and plan: January 02. B12 level normal at 453. (6) Sore throat Current Visit: Yes Status: Acute Assessment and plan: January 02. Cepacol lozenges will be ordered. - Subjective Interval history: January 02. She has no new complaints except sore throat. She feels minimally improved overall. January 03. She feels unimproved. She reports 2 episodes of vomiting earlier today. Her throat is still sore. - Constitutional Vitals: Temp Pulse Resp BP Pulse Ox 98.0 F 74 16 141/56 93 01/03/19 10:36 01/03/19 10:36 01/03/19 10:36 01/03/19 10:36 01/03/19 10:36 Exam: She is lying in bed and appears in mild general discomfort. Her voice is slightly hoarse. I reviewed her medications and lab results. Internal Medicine: Result - Labs CBC & Chem 7: 01/03/19 04:59 01/03/19 04:59 Labs: Short CBC 01/03/19 Range/Units 04:59 WBC 9.1 (4.3-11.1) K/mcL Hgb 12.7 (11.5-15.4) g/dL Hct 39.0 (35.3-44.9) % Plt Count 222 (140-400) K/mcL Neutrophils # 6.8 (1.6-8.9) K/mcL BMP 02/06/19 04:59 Sodium 140 Potassium 3.8 Chloride 101 Carbon Dioxide 32 H BUN 14 Creatinine 0.62 Glucose 166 H Calcium 8.9 Consult Discharge Plan - Plan Referrals: Sonia Peoples, JAMIE [Primary Care Provider] - 1 week
[2019-01-03] MEDS: cefTRIAXone 2,000 MG in Water for inj. (sterile) 20 ML 20 ML IVPB SCH (10:57)
[2019-01-04] MEDS: Ipratropium/Albuterol Neb 3 ML IH SCH ×3 (04:21→15:40)
[2019-01-04] MEDS: Ascorbic Acid 500 MG TABLET PO SCH (06:42)
[2019-01-04 08:14] VITALS: BP 152/72
[2019-01-04] MEDS: Budesonide/Formoterol 160/4.5 1 PUFF INH IH SCH (09:00)
[2019-01-04] MEDS: Insulin LISPRO 300 UNITS/3 ML VIAL SQ SCH (09:18)
[2019-01-04] MEDS: ALPRAZolam 1 MG TABLET PO SCH (09:28)
[2019-01-04] MEDS: predniSONE 20 MG TABLET PO SCH (09:28)
[2019-01-04] MEDS: Lactobacillus 1 EACH CAP.SPRINK PO SCH (09:28)
[2019-01-04] MEDS: cefTRIAXone 2,000 MG in Water for inj. (sterile) 20 ML 20 ML IVPB SCH (09:28)
[2019-01-04] MEDS: Azithromycin 500 MG in D5% in Water 250 ML IVPB SCH (09:29)
--- NOTE | 2019-01-04 10:01 | Discharge Summary ---
Orders not resulted at time of discharge: Pending orders 01/01/19 10:09 Culture,Blood [] Stat Date of Encounter: 01/04/19 Time of Encounter: 09:50 - Discharge Diagnosis (1) COPD exacerbation Priority: Primary Status: Acute (2) Gastroenteritis Priority: Secondary Status: Acute (3) Hypokalemia Priority: Secondary Status: Resolved (4) Microcytosis Priority: Secondary Status: Acute (5) B12 deficiency Priority: Secondary Status: Acute (6) Sore throat Priority: Secondary Status: Acute Hospital course: Ms. Laird is a 68 year old female who came to emergency room stating she had 4 day history of cough productive of thick yellow sputum. She denies hemoptysis. She reports poor oral intake with multiple episodes of dry heaving. She reports nonbloody diarrhea for 3 days with fevers and chills. She states 3 grandchildren have similar symptoms. She came to emergency room and was evaluated and was felt to have exacerbation of COPD. She was admitted to [facility] floor for ongoing care needs. Initial orders were written by the emergency room physician. I saw her on January 01 and performed a history and physical. She was started on Rocephin and Zithromax in emergency room. She remained afebrile during her hospital stay. She had minimal productivity from the cough. Influenza testing in emergency room was negative. I felt she likely had a viral infection causing URI and gastroenteritis symptoms. Vomiting decreased during hospitalization. On January 04 I felt she was improved enough to be discharged home. I encouraged her to drink adequate fluids. Antibiotics will not be given at discharge. She will follow with her PCP Sonia Peoples CNP within 1 week. Room air oximetry will be checked on 6 minute walk prior to discharge. - Time Spent with Patient Total time spent providing and/or coordinating discharge services: - Discharge Medications Home Medications: Albuterol Neb [Proventil Neb] 2.5 mg IH Q4HR 10/17/16 [History] Albuterol Sulfate [Proair Hfa] 2 puff IH Q4H PRN 10/17/16 [History] Aspirin [Lo-Dose Aspirin EC] 81 mg PO DAILY 10/17/16 [History] Budesonide/Formoterol 160/4.5 [Symbicort 160/4.5] 2 puff IH BID 10/17/16 [History] Insulin DETEMIR [Levemir Flextouch] 7 unit SQ QPM 10/17/16 [History] Mv W-Ca/Iron/FA/Lutein/Hrb#179 [Bg Multivit For Women Caplet] 1 each PO DAILY 10/17/16 [History] ALPRAZolam [Xanax 1 MG Tablet] 1 mg PO TID 12/25/17 [History] Empagliflozin [Jardiance] 10 mg PO DAILY 12/25/17 [History] Nitroglycerin [Nitrostat] 0.4 mg SL Q5M PRN 12/25/17 [History] Cyclobenzaprine [Flexeril] 1 tab PO PRN PRN 02/20/18 [History] Ranitidine HCl [Acid Wind Farm Engineer] 150 mg PO DAILY 05/05/18 [History] Ascorbic Acid [C-500] 500 mg PO DAILY #30 tablet 05/10/18 [Rx] Cyanocobalamin (B-12) [Vitamin B12] 1,000 mcg PO DAILY #30 tablet 05/10/18 [Rx] Ferrous Sulfate 325 mg PO DAILY #30 tablet 05/10/18 [Rx] Allergies/Adverse Reactions: Allergy/AdvReac Type Severity Reaction Status Date / Time No Known Allergies Allergy Verified 05/05/18 12:54 Date of admission: 01/01/19 10:07 Primary care physician: Sonia Peoples CNP - Constitutional Vitals: Temp Pulse Resp BP Pulse Ox 97.6 F 84 18 152/72 94 01/04/19 08:05 01/04/19 08:05 01/04/19 09:00 01/04/19 08:05 01/04/19 09:00 - Patient Status Disposition: Home, Self-Care Condition: Fair - Discharge Instructions Follow Up With: Sonia Peoples CNP [Primary Care Provider] - 1 week - Diet and Activity Activity: resume usual activities as tolerated Diet: advance to your usual diet
== END 2019-01-04 15:35 | disposition home or self-care (01) ==
LOC: EMEROOPIK 08:52 → INPPIK 08:52
PROVIDERS: ADMIT Internal Medicine; ATTEND Internal Medicine

== ENCOUNTER 2019-02-13 12:57 | Observation (INO) ==
[2019-02-13] MEDS ORDERED: Aspirin 81 MG TAB.CHEW PO ONE (13:13)
--- NOTE | 2019-02-13 13:13 | Emergency Department Note ---
Disposition Clinical Impression: Chest pain Disposition: Admitted As Inpatient Condition: Fair Referrals: Sonia Peoples CNP [Primary Care Provider] - Forms: ED Satisfaction Letter Chest Pain HPI - General Chief Complaint: ED Chest Pain Stated Complaint: chest pain x 3 days Time Seen by Provider: 02/13/19 13:09 Source: patient Mode of arrival: private vehicle Limitations: no limitations Vital Signs Reviewed: Yes Nursing Notes Reviewed: Yes - History of Present Illness HPI Narrative: Patient reports she has been having intermittent chest pain for 2-3 days. She states this was "more intense today" and she called her family doctor. She is advised to come to the ER for evaluation. States the pain comes and goes and she had about an hour and a half spell this early a.m. She states that it tends to get better if she sits up on the edge of the bed. She cannot identify anything else that makes this better or worse. Pain has not been radiating. She denies any anterior chest pain at this time but still has some pain in the left scapular region. She states that his been for 3 days she thought she might of pulled something but she cannot recall any type of change of activity or injury. She has had a feeling of some irregular heartbeats. She has COPD but denies increased cough or shortness of breath. She denies fevers or chills. She denies diaphoresis but she has had little nausea. She denies any lower extremity swelling, immobilization or injury. She denies any change in her medicines. She did have an exposure to influenza and completed a course of Tamiflu "last week". Pt complaint: chest pain Onset (ago): day(s) (3) Duration: intermittent Onset: during rest Pain Location: substernal Severity: moderate Quality: aching Pain Radiation: back (Left scapular) Improves with: other (Sitting up on the edge of the bed) Worsens with: supine Associated symptoms: Reports: nausea. Denies: vomiting, diaphoresis, dyspnea, syncope, palpitations, fever, cough, leg swelling Treatments prior to arrival chest pain: none - Related Data Home Medications Medication Instructions Recorded Confirmed Albuterol Neb [Proventil Neb] 2.5 mg IH Q4HR 10/17/16 02/13/19 Albuterol Sulfate [Proair Hfa] 2 puff IH Q4H PRN 10/17/16 02/13/19 Aspirin [Lo-Dose Aspirin EC] 81 mg PO DAILY 10/17/16 02/13/19 Budesonide/Formoterol 160/4.5 2 puff IH BID 10/17/16 02/13/19 [Symbicort 160/4.5] Insulin DETEMIR [Levemir Flextouch] 7 unit SQ QPM 10/17/16 02/13/19 Mv W-Ca/Iron/FA/Lutein/Hrb#179 1 each PO DAILY 10/17/16 02/13/19 [Bg Multivit For Women Caplet] ALPRAZolam [Xanax 1 MG Tablet] 1 mg PO TID 12/25/17 02/13/19 Empagliflozin [Jardiance] 10 mg PO DAILY 12/25/17 02/13/19 Nitroglycerin [Nitrostat] 0.4 mg SL Q5M PRN 12/25/17 02/13/19 Cyclobenzaprine [Flexeril] 1 tab PO PRN PRN 02/20/18 02/13/19 Ranitidine HCl [Acid Gate Cutter] 150 mg PO DAILY 05/05/18 02/13/19 Previous Rx's Medication Instructions Recorded Ascorbic Acid [C-500] 500 mg PO DAILY #30 tablet 05/10/18 Cyanocobalamin (B-12) [Vitamin B12] 1,000 mcg PO DAILY #30 tablet 05/10/18 Ferrous Sulfate 325 mg PO DAILY #30 tablet 05/10/18 Meloxicam 7.5 mg PO DAILY #10 tablet 01/30/19 Allergies Allergy/AdvReac Type Severity Reaction Status Date / Time No Known Allergies Allergy Verified 05/05/18 12:54 All systems ED: reviewed and negative except as stated. Chest Pain PMH - Past Medical History Medical history: Reports: COPD, coronary artery disease, diabetes, GERD, hypertension, kidney stones, myocardial infarction Surgical history: Reports: appendectomy, cholecystectomy, coronary bypass (CABG), herniorrhaphy, hysterectomy Psychiatric history: Reports: depression - Social History Smoking Status: Former smoker Alcohol use: Reports: none Drug use: Reports: none Physical Exam - General Limitations: no limitations General appearance: alert, in no apparent distress - Head Head exam: atraumatic, normocephalic, normal inspection - Eye Eye exam: Present: normal appearance, PERRL, EOMI. Absent: conjunctival injection - ENT ENT exam: normal exam, normal oropharynx, mucous membranes moist - Neck Neck exam: Present: normal inspection, full ROM, trachea midline. Absent: ten derness, lymphadenopathy - Chest Chest inspection: Present: normal inspection, symmetric chest wall rise - Respiratory Respiratory exam: Present: wheezes, prolonged expiratory phase. Absent: respiratory distress, accessory muscle use - Cardiovascular Cardiovascular exam: Present: regular rate, normal rhythm, normal heart sounds - Abdominal Exam Abdominal exam: Present: soft, Non-Tender, normal bowel sounds. Absent: tenderness, distention, guarding, rebound, rigidity - Extremities Exam Extremities exam: Present: normal inspection, full ROM, normal capillary refill. Absent: tenderness, pedal edema, calf tenderness - Expanded Lower Extremity Exam Neurovascular/Tendon exam: Present: normal capillary refill. Absent: motor deficit, sensory deficit, tendon deficit Gait: observed and normal - Back Exam Back exam: Present: normal inspection, full ROM. Absent: tenderness - Neurological Exam Neurological exam: Present: alert, oriented X3 - Psychiatric Psychiatric exam: Present: normal affect, normal mood - Skin Skin exam: Present: warm, dry, intact, normal color. Absent: cyanosis, diaphoresis, pallor Course Course Narrative: 1404: With return of all testing, care is discussed with the patient and Dr. Worrell. He is agreeable with observing the patient and performing serial troponins. Verbal orders have been obtained for her observation. She remains pain-free at this time. Vital Signs Temperature 98.2 F 02/13/19 12:59 Pulse Rate 100 02/13/19 12:59 Respiratory Rate 18 02/13/19 12:59 Blood Pressure 156/67 02/13/19 12:59 O2 Sat by Pulse Oximetry 95 02/13/19 12:59 Temperature 98.2 F 02/13/19 12:59 Pulse Rate 96 02/13/19 13:46 Respiratory Rate 20 02/13/19 13:46 Blood Pressure 169/94 02/13/19 13:46 O2 Sat by Pulse Oximetry 93 02/13/19 13:46 Oxygen Delivery Oxygen Delivery Room Air Chest Pain - Differential Diagnosis Likely: unstable angina pectoris, atypical chest pain, costalchondritis, chest pain - Medical Records Medical records reviewed: Yes I reviewed the patient's medical records. - Lab Data Lab results reviewed: Yes I reviewed the patient's lab results. Result diagrams: 02/13/19 13:11 02/13/19 13:11 Lab Results 02/13/19 02/13/19 02/13/19 Range/Units 13:11 13:11 13:11 WBC 10.7 (4.3-11.1) K/mcL RBC 4.55 (3.82-4.97) M/mcL Hgb 13.1 (11.5-15.4) g/dL Hct 38.6 (35.3-44.9) % MCV 84.8 (83.0-100.0) fL MCH 28.8 (28.0-33.3) pg MCHC 33.9 (31.6-35.5) g/dL RDW 14.3 (11.5-14.5) % Plt Count 275 (140-400) K/mcL MPV 11.4 (9.4-12.4) fL Immature Gran % 0.4 (0-4) % Seg Neutrophils % 63.9 % Lymphocytes % 27.3 % Monocytes % 5.6 % Eosinophils % 2.2 % Basophils % 0.6 % Neutrophils # 6.8 (1.6-8.9) K/mcL Lymphocytes # 2.9 (0.6-4.6) K/mcL Monocytes # 0.6 (0.0-1.3) K/mcL Eosinophils # 0.2 (0.0-0.6) K/mcL Basophils # 0.1 (0.0-0.2) K/mcL PT 11.4 (9.4-12.1) Seconds INR 1.0 APTT 33.1 (26.0-36.0) Seconds Sodium (136-145) mEq/L Potassium (3.5-5.1) mEq/L Chloride (98-107) mEq/L Carbon Dioxide (23-29) mEq/L BUN (8-23) mg/dL Creatinine (0.60-1.20) mg/dL Est GFR ( Amer) (> 60) Est GFR (Non-Af Amer) (> 60) BUN/Creatinine Ratio (6-26) Glucose (70-105) mg/dL Calculated Osmolality (280-300) Calcium (8.6-10.3) mg/dL Troponin I (< 0.04) ng/mL B-Natriuretic Peptide 83 (Less than 100) pg/mL 02/13/19 Range/Units 13:11 WBC (4.3-11.1) K/mcL RBC (3.82-4.97) M/mcL Hgb (11.5-15.4) g/dL Hct (35.3-44.9) % MCV (83.0-100.0) fL MCH (28.0-33.3) pg MCHC (31.6-35.5) g/dL RDW (11.5-14.5) % Plt Count (140-400) K/mcL MPV (9.4-12.4) fL Immature Gran % (0-4) % Seg Neutrophils % % Lymphocytes % % Monocytes % % Eosinophils % % Basophils % % Neutrophils # (1.6-8.9) K/mcL Lymphocytes # (0.6-4.6) K/mcL Monocytes # (0.0-1.3) K/mcL Eosinophils # (0.0-0.6) K/mcL Basophils # (0.0-0.2) K/mcL PT (9.4-12.1) Seconds INR APTT (26.0-36.0) Seconds Sodium 138 (136-145) mEq/L Potassium 3.5 (3.5-5.1) mEq/L Chloride 103 (98-107) mEq/L Carbon Dioxide 28 (23-29) mEq/L BUN 24 H (8-23) mg/dL Creatinine 0.66 (0.60-1.20) mg/dL Est GFR ( Amer) > 60 (> 60) Est GFR (Non-Af Amer) > 60 (> 60) BUN/Creatinine Ratio 36 H (6-26) Glucose 304 H (70-105) mg/dL Calculated Osmolality 301 H (280-300) Calcium 9.3 (8.6-10.3) mg/dL Troponin I < 0.03 (< 0.04) ng/mL B-Natriuretic Peptide (Less than 100) pg/mL - Radiology Data Radiology results reviewed: Yes I reviewed the patient's radiology results. Single view chest x-ray is performed. This does not demonstrate evidence for infiltrate, effusion, pneumothorax, foreign body or heart failure. The cardiac silhouette is normal. I do not see abnormality to the osseous structures of the chest. This is on my interpretation. Impressions Chest X-Ray 02/13/19 13:13 IMPRESSION: No acute process. Stable exam. D/ / Wicho Celis MD / Wicho Celis MD Interpreting Provider: Wicho Celis MD - EKG Data EKG attestation: Yes I reviewed and interpreted this EKG. EKG shows normal: sinus rhythm, axis, intervals, QRS complexes (Ventricular trigeminy), ST-T waves Rate: tachycardia (102) Interpretation: no acute changes, other (Patient has ventricular trigeminy without other ST or T-wave changes to suggest ischemia or infarction. This is on my interpretation.) Heart Score - Score History: Slightly Suspicious EKG: Non Specific repolarisation Disturbance Age: Greater than 65 Risk Factors: Equal/Greater than 3 risk factor or history of atherosclerotic disease Troponin: Less than normal limit HEART Score Total: 5
[2019-02-13 13:28] LABS: Basophils # 0.1 K/mcL (0.0-0.2); Basophils % 0.6 %; Eosinophils # 0.2 K/mcL (0.0-0.6); Eosinophils % 2.2 %; Hematocrit 38.6 % (35.3-44.9); Hemoglobin 13.1 g/dL (11.5-15.4); Immature Granulocytes % 0.4 % (0-4); Lymphocytes # 2.9 K/mcL (0.6-4.6); Lymphocytes % 27.3 %; Mean Corpuscular HGB Conc 33.9 g/dL (31.6-35.5); Mean Corpuscular Hemoglobin 28.8 pg (28.0-33.3); Mean Corpuscular Volume 84.8 fL (83.0-100.0); Mean Platelet Volume 11.4 fL (9.4-12.4); Monocytes # 0.6 K/mcL (0.0-1.3); Monocytes % 5.6 %; Neutrophils # 6.8 K/mcL (1.6-8.9); Platelet Count 275 K/mcL (140-400); Red Blood Count 4.55 M/mcL (3.82-4.97); Red Cell Distribution Width 14.3 % (11.5-14.5); Segmented Neutrophils % 63.9 %
[2019-02-13 13:35] LABS: Prothrombin Time 11.4 Seconds (9.4-12.1)
[2019-02-13 13:38] LABS: Activated Partial Thrombo Time 33.1 Seconds (26.0-36.0)
[2019-02-13 13:42] LABS: BUN/Creatinine Ratio 36 (6-26); Blood Urea Nitrogen 24 mg/dL (8-23); Calcium 9.3 mg/dL (8.6-10.3); Carbon Dioxide 28 mEq/L (23-29); Chloride 103 mEq/L (98-107); Glucose 304 mg/dL (70-105); Osmolality,Calculated 301 (280-300); Potassium 3.5 mEq/L (3.5-5.1); Sodium 138 mEq/L (136-145); eGFR For Non-African Americans > 60 (> 60)
[2019-02-13 13:47] LABS: Troponin I < 0.03 ng/mL (< 0.04)
[2019-02-13] MEDS ORDERED: Ondansetron ODT 4 MG TAB.RAPDIS SL PRN (15:22)
[2019-02-13] MEDS ORDERED: Mag Hydrox/Al Hydrox/Simeth 30 ML UDC PO PRN (15:22)
[2019-02-13] MEDS ORDERED: D5% in Water 1,000 ML IVC PRN (15:22)
[2019-02-13] MEDS ORDERED: Dextrose Gel 15 GM/37.5 ML TUBE PO PRN ×2 (15:22)
[2019-02-13] MEDS ORDERED: Naloxone 0.4 MG/ML INJ IVP PRN (15:22)
[2019-02-13] MEDS ORDERED: 0.9 % Sodium Chloride 1,000 ML IVC SCH (15:22)
[2019-02-13] MEDS ORDERED: MOM Conc 10 ML UD.LIQ PO PRN (15:22)
[2019-02-13] MEDS ORDERED: *HR* Dextrose 50 % in Water (Syg) 50 ML SYRINGE IVP PRN (15:22)
[2019-02-13] MEDS ORDERED: Nitroglycerin 0.4 MG TAB.SUBL SL PRN (15:22)
[2019-02-13] MEDS ORDERED: *HR* Dextrose 50 % in Water (Vial) 50 ML VIAL IVP PRN (16:00)
--- NOTE | 2019-02-13 17:10 | Internal Med History&Physical ---
Date of Encounter: 02/13/19 Time of Encounter: 16:15 Internal Medicine - H&P: HPI Chief complaint: cough, dyspnea, R shoulder pain Admitted From: Emergency Dept Plans for Post Hospital Care: Home History of present illness: Ms. Laird is a 68 year old female Past Med Surg Social Fam HX - Past Medical History Medical history: COPD, coronary artery disease, diabetes, GERD, hypertension, kidney stones, myocardial infarction Additional medical history: kidney stone Psychiatric history: depression - Past Surgical History Surgical History: appendectomy, cholecystectomy, coronary bypass (CABG), herniorrhaphy, hysterectomy Additional surgical history: triple bipass, T&A - Social History Smoking Status: Former smoker Smokeless Tobacco Status: No Alcohol use: none Drug use: none - Family History Mother Living Status: Hx Family Cancer: Yes Hx Family Endocrine Disorder: Yes Father Living Status: Hx Family Cancer: Yes Hx Family Endocrine Disorder: Yes Internal Medicine - H&P: Meds Albuterol Neb [Proventil Neb] 2.5 mg IH Q4HR 10/17/16 [History] Albuterol Sulfate [Proair Hfa] 2 puff IH Q4H PRN 10/17/16 [History] Aspirin [Lo-Dose Aspirin EC] 81 mg PO DAILY 10/17/16 [History] Budesonide/Formoterol 160/4.5 [Symbicort 160/4.5] 2 puff IH BID 10/17/16 [History] Insulin DETEMIR [Levemir Flextouch] 7 unit SQ QPM 10/17/16 [History] Mv W-Ca/Iron/FA/Lutein/Hrb#179 [Bg Multivit For Women Caplet] 1 each PO DAILY 10/17/16 [History] ALPRAZolam [Xanax 1 MG Tablet] 1 mg PO TID 12/25/17 [History] Empagliflozin [Jardiance] 10 mg PO DAILY 12/25/17 [History] Nitroglycerin [Nitrostat] 0.4 mg SL Q5M PRN 12/25/17 [History] Cyclobenzaprine [Flexeril] 1 tab PO PRN PRN 02/20/18 [History] Ranitidine HCl [Acid De Alcholizer] 150 mg PO DAILY 05/05/18 [History] Ascorbic Acid [C-500] 500 mg PO DAILY #30 tablet 05/10/18 [Rx] Cyanocobalamin (B-12) [Vitamin B12] 1,000 mcg PO DAILY #30 tablet 05/10/18 [Rx] Ferrous Sulfate 325 mg PO DAILY #30 tablet 05/10/18 [Rx] Meloxicam 7.5 mg PO DAILY #10 tablet 01/30/19 [Rx] Allergy/AdvReac Type Severity Reaction Status Date / Time No Known Allergies Allergy Verified 05/05/18 12:54 All Systems PM: A 10-system review of systems was performed and is negative for pertinent findings except as documented above in the HPI. - Constitutional Vitals: Temp Pulse Resp BP Pulse Ox 98.2 F 80 20 134/86 93 02/13/19 12:59 02/13/19 14:35 02/13/19 14:35 02/13/19 14:35 02/13/19 14:35 Internal Med - H&P Results - Labs CBC & Chem 7: 02/13/19 13:11 02/13/19 13:11 Labs: Short CBC 02/13/19 Range/Units 13:11 WBC 10.7 (4.3-11.1) K/mcL Hgb 13.1 (11.5-15.4) g/dL Hct 38.6 (35.3-44.9) % Plt Count 275 (140-400) K/mcL Neutrophils # 6.8 (1.6-8.9) K/mcL BMP 02/13/19 13:11 Sodium 138 Potassium 3.5 Chloride 103 Carbon Dioxide 28 BUN 24 H Creatinine 0.66 Glucose 304 H Calcium 9.3 Cardiac Enzymes 02/13/19 Range/Units 13:11 Troponin I < 0.03 (< 0.04) ng/mL - Impressions ITS Impressions Chest X-Ray 02/13/19 13:13 IMPRESSION: No acute process. Stable exam. D/ / Wicho Celis MD / Wicho Celis MD Interpreting Provider: Wicho Celis MD
[2019-02-13] MEDS: Albuterol 2.5 MG/3 ML NEBULIZER IH SCH ×3 (17:19→23:28)
[2019-02-13] MEDS: ALPRAZolam 1 MG TABLET PO SCH ×2 (17:28→21:28)
[2019-02-13] MEDS: Insulin LISPRO 300 UNITS/3 ML VIAL SQ SCH (17:28)
[2019-02-13] MEDS: Insulin DETEMIR 100 UNIT/ML X5UNITS SQ SCH (17:37)
[2019-02-13] MEDS ORDERED: INSULIN DETEMIR 7 UNIT SQ SCH (18:00)
--- NOTE | 2019-02-13 19:08 | Internal Med History&Physical ---
Date of Encounter: 02/13/19 Time of Encounter: 16:15 Assessment and Plan (1) Chest pain Current visit: Yes Status: Acute Suspect noncardiac etiology. Repeat cardiac enzymes were ordered through emergency room. She will be given Naprosyn twice a day. She is uncertain if she is taking Mobic at home. Qualifiers: Chest pain type: chest pain on breathing Qualified Code(s): R07.1 - Chest pain on breathing; R07.81 - Pleurodynia (2) COPD exacerbation Current visit: No Status: Acute She will be given a dose of Rocephin and Zithromax with Solu-Medrol. Reassess in a.m. (3) Right shoulder pain Current visit: Yes Status: Acute Suspect rotator cuff injury. MRI of the shoulder will be ordered. Qualifiers: Chronicity: acute Qualified Code(s): M25.511 - Pain in right shoulder (4) HTN (hypertension) Current visit: No Status: Chronic No antihypertensive medication listed on home med list. Monitor blood pressure and treat as needed. Qualifiers: Hypertension type: essential hypertension Qualified Code(s): I10 - Essential (primary) hypertension Internal Medicine - H&P: HPI Chief complaint: Cough, dyspnea, right shoulder pain Admitted From: Emergency Dept Plans for Post Hospital Care: Home History of present illness: Ms. Laird is a 68 year old female who came to emergency room stating she had said of cough with little productivity and discomfort in her left lateral chest and radiated to her interscapular area over the last 2 days. She reports fevers and chills. She states her grandson was diagnosed with the flu several days ago when she was prescribed Tamiflu completing a 10 day course last week for prophylaxis. She was evaluated emergency room and was felt to deserve admission because of the chest pain. He describes the chest pain as a sharp pain that is worsened by deep inspiration and coughing. Cardiovascular history is pertinent for hypertension. 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 She has not had stress test or repeat heart catheter since the surgery. She denies known heart failure DVT or pulmonary embolus. Past Med Surg Social Fam HX - Past Medical History Medical history: COPD, coronary artery disease, diabetes, GERD, hypertension, kidney stones, myocardial infarction Additional medical history: kidney stone Psychiatric history: depression - Past Surgical History Surgical History: appendectomy, cholecystectomy, coronary bypass (CABG), herniorrhaphy, hysterectomy Additional surgical history: triple bipass, T&A - Social History Smoking Status: Former smoker Smokeless Tobacco Status: No Alcohol use: none Drug use: none - Family History Mother Living Status: Hx Family Cancer: Yes Hx Family Endocrine Disorder: Yes Father Living Status: Hx Family Cancer: Yes Hx Family Endocrine Disorder: Yes Internal Medicine - H&P: Meds Albuterol Neb [Proventil Neb] 2.5 mg IH Q4HR 10/17/16 [History] Albuterol Sulfate [Proair Hfa] 2 puff IH Q4H PRN 10/17/16 [History] Aspirin [Lo-Dose Aspirin EC] 81 mg PO DAILY 10/17/16 [History] Budesonide/Formoterol 160/4.5 [Symbicort 160/4.5] 2 puff IH BID 10/17/16 [History] Insulin DETEMIR [Levemir Flextouch] 7 unit SQ QPM 10/17/16 [History] Mv W-Ca/Iron/FA/Lutein/Hrb#179 [Bg Multivit For Women Caplet] 1 each PO DAILY 10/17/16 [History] ALPRAZolam [Xanax 1 MG Tablet] 1 mg PO TID 12/25/17 [History] Empagliflozin [Jardiance] 10 mg PO DAILY 12/25/17 [History] Nitroglycerin [Nitrostat] 0.4 mg SL Q5M PRN 12/25/17 [History] Cyclobenzaprine [Flexeril] 1 tab PO PRN PRN 02/20/18 [History] Ranitidine HCl [Acid Childhood Teacher] 150 mg PO DAILY 05/05/18 [History] Ascorbic Acid [C-500] 500 mg PO DAILY #30 tablet 05/10/18 [Rx] Cyanocobalamin (B-12) [Vitamin B12] 1,000 mcg PO DAILY #30 tablet 05/10/18 [Rx] Ferrous Sulfate 325 mg PO DAILY #30 tablet 05/10/18 [Rx] Meloxicam 7.5 mg PO DAILY #10 tablet 01/30/19 [Rx] Allergy/AdvReac Type Severity Reaction Status Date / Time No Known Allergies Allergy Verified 05/05/18 12:54 All Systems PM: A 10-system review of systems was performed and is negative for pertinent findings except as documented above in the HPI. Review of systems: Review of systems from her December 2018 [facility] hospitalization were reviewed and revised as below. Gen.: Her weight decreased from 73.482 kg on 12/28/2017 to admission weight of 70.307 kg April 2018 but increased to 80.739 kg now Cardiovascular: As per history of present illness Respiratory: She has smoked since age 11 up to one pack every 2 weeks. She denies chronic lung disease and does not use home oxygen. GI: She has had cholecystectomy. She denies disorders of her liver or exocrine pancreas : She has had kidney stones in the past with hematuria. She has cystoscopy November 2017 for hydronephrosis without stones seen. She has had frequent UTIs but denies other kidney or bladder disorders. Endocrine: She was diagnosed with DM 2 in 2012. She has hyperlipidemia but denies thyroid disease. Hematology/oncology: She denies blood disorders cancers or anemia. She has history of low B12 level and is on supplemental B12 as well as supplemental iron. Psychiatric: She has anxiety and depression but denies other mental health di agnoses [place] skeletal: She had a fall onto her right shoulder 01/30/2019. She was evaluated in emergency room with x-ray showing no evidence of fracture. She states she has been unable to raise her arm above her head since the injury. She denies arthritis gout or other bone joint or muscle disorders. - Constitutional Vitals: Temp Pulse Resp BP Pulse Ox 97.3 F L 81 18 133/76 90 02/13/19 18:33 02/13/19 18:33 02/13/19 18:33 02/13/19 18:33 02/13/19 18:33 Exam: Gen.: She is well-developed well-nourished female resting comfortably on the side of bed who appears in minimal distress at present time. HEENT: Head is atraumatic and normocephalic. Eyes: EOMI. There is no scleral icterus. Mouth: Mucosa is moist. Neck: Supple and nontender. There is no thyromegaly or adenopathy noted. Heart: Regular with occasional ectopic. No murmurs or gallops are heard. Lungs: She has prolonged expiration phase and mild diffuse wheezing. No infarct or crackles are heard. No pleural friction rubs are heard. Abdomen: Soft and nontender. No masses or guarding are noted. Extremities: There is no cyanosis edema or clubbing noted. Dorsalis pedis and posttibial pulses are trace to 1+ palpable bilaterally. Her feet are warm to touch. She has significant pain in her left shoulder on attempting to raise her right arm above her head. The pain is intensified by downward counterpressure while attempting to lift the arm. Neurologic: Mental status: She is talkative and a good historian. Cranial nerves: Smile is symmetric. Forehead wrinkles bilaterally. Tongue protrudes midline. EOMI. Motor: There is no pronator drift. Cerebellar: Finger to nose is intact bilaterally. Skin: Warm and dry Internal Med - H&P Results - Labs CBC & Chem 7: 02/13/19 13:11 02/13/19 13:11 Labs: Short CBC 02/13/19 Range/Units 13:11 WBC 10.7 (4.3-11.1) K/mcL Hgb 13.1 (11.5-15.4) g/dL Hct 38.6 (35.3-44.9) % Plt Count 275 (140-400) K/mcL Neutrophils # 6.8 (1.6-8.9) K/mcL BMP 02/13/19 13:11 Sodium 138 Potassium 3.5 Chloride 103 Carbon Dioxide 28 BUN 24 H Creatinine 0.66 Glucose 304 H Calcium 9.3 Cardiac Enzymes 02/13/19 Range/Units 13:11 Troponin I < 0.03 (< 0.04) ng/mL - Impressions ITS Impressions Chest X-Ray 02/13/19 13:13 IMPRESSION: No acute process. Stable exam. D/ / Wicho Celis MD / Wicho Celis MD Interpreting Provider: Wicho Celis MD
--- NOTE | 2019-02-13 21:03 | Electrocardiograph Report ---
[address] [place] [address] Test Date: 2019-02-13 Pat Name: Gaby Laird Department: EDP-12 Room: [facility] Gender: F Certified Coder: : 1950 Requested By: Oliver Villar Order Number: [id number] Reading MD: Catherine Galvez Measurements Intervals [place] Rate: 102 P: 83 IA: 206 QRS: 49 QRSD: 83 T: 11 QT: 343 QTc: 447 Interpretive Statements Sinus tachycardia Ventricular trigeminy Prolonged IA interval Anterior infarct, old Electronically Signed On 02-13-2019 21:01:36 EDT by Catherine Galvez
[2019-02-13] MEDS: methylPREDNISolone 125 MG/2 ML VIAL IVP SCH (21:28)
[2019-02-13] MEDS: Lactobacillus 1 EACH CAP.SPRINK PO SCH (21:28)
[2019-02-13] MEDS: Azithromycin 500 MG in D5% in Water 250 ML IVPB SCH (21:29)
[2019-02-13] MEDS: cefTRIAXone 1,000 MG in Water for inj. (sterile) 20 ML 10 ML IVP SCH (21:29)
[2019-02-14] MEDS: Albuterol 2.5 MG/3 ML NEBULIZER IH SCH ×2 (04:07→07:50)
[2019-02-14] MEDS: methylPREDNISolone 125 MG/2 ML VIAL IVP SCH (04:21)
[2019-02-14] MEDS ORDERED: Ascorbic Acid 500 MG TABLET PO SCH (06:30)
[2019-02-14] MEDS: Insulin LISPRO 300 UNITS/3 ML VIAL SQ SCH ×3 (07:20→16:45)
[2019-02-14] MEDS: cefTRIAXone 1,000 MG in Water for inj. (sterile) 20 ML 10 ML IVP SCH (07:21)
[2019-02-14] MEDS: ALPRAZolam 1 MG TABLET PO SCH ×3 (07:25→21:36)
[2019-02-14] MEDS: Aspirin Enteric Coated 81 MG Tablet PO SCH (07:25)
[2019-02-14] MEDS: Famotidine 20 MG TABLET PO SCH (07:25)
[2019-02-14] MEDS: Lactobacillus 1 EACH CAP.SPRINK PO SCH ×2 (07:25→21:36)
[2019-02-14] MEDS: JARDIANCE 10MG PO SCH (07:26)
[2019-02-14 08:43] LABS: % Iron Saturation 15 % (15-50); Iron 56 mcg/dL (50-170); Transferrin 260 mg/dL (203-362)
[2019-02-14] MEDS ORDERED: *HR* LORazepam 2 MG/ML VIAL ONE (08:55)
[2019-02-14] MEDS ORDERED: NON-FORMULARY MEDICATION 1 EACH EACH (Ranitidine Hcl [Acid Reducer] 150 MG) PO SCH (09:00)
[2019-02-14] MEDS ORDERED: EMPAGLIFLOZIN 10 MG PO SCH (09:00)
[2019-02-14 09:01] LABS: Ferritin 42 ng/mL (10-120)
[2019-02-14] MEDS ORDERED: *HR* LORazepam 2 MG/ML VIAL IVP ONE (09:04)
--- NOTE | 2019-02-14 09:40 | Internal Med Progress Note ---
Date of Encounter: 02/14/19 Time of Encounter: 09:30 - Assessment and plan (1) Chest pain Current Visit: Yes Status: Acute Assessment and plan: February 14. She states it has significantly lessened. Continue Naprosyn. Qualifiers: Chest pain type: chest pain on breathing Qualified Code(s): R07.1 - Chest pain on breathing; R07.81 - Pleurodynia (2) COPD exacerbation Current Visit: No Status: Acute Assessment and plan: February 14. Continue Rocephin and Zithromax. Discontinue Solu-Medrol. (3) Right shoulder pain Current Visit: Yes Status: Acute Assessment and plan: February 14. Suspect possible rotator cuff injury. MRI of shoulder can be done as an outpatient. Qualifiers: Chronicity: acute Qualified Code(s): M25.511 - Pain in right shoulder (4) HTN (hypertension) Current Visit: No Status: Chronic Assessment and plan: February 14. Continue to monitor blood pressure. Qualifiers: Hypertension type: essential hypertension Qualified Code(s): I10 - Essential (primary) hypertension (5) DM type 2 (diabetes mellitus, type 2) Current Visit: No Status: Chronic Assessment and plan: Continue Levemir and Jardiance. Continue Accu-Cheks with SSI. Discontinue Solu-Medrol Qualifiers: Diabetes mellitus shelter insulin use: with shelter use Diabetes mellitus complication status: without complication Qualified Code(s): E11.9 - Type 2 diabetes mellitus without complications; Z79.4 - correction (current) use of insulin - Subjective Interval history: February 14. MRI of right shoulder was scheduled this morning at [facility]. Almost immediately after transport began the EMS personnel return to the hospital and took patient to ER because she had decreased responsiveness. Blood sugar was found to be greater than 600 MG/DL. Head CT was ordered to further evaluate possible seizures (versus pseudoseizures). She is now back in her room. She denies pain and states she has no significant dyspnea. - Constitutional Vitals: Temp Pulse Resp BP Pulse Ox 97.3 F L 113 18 185/112 93 02/14/19 06:41 02/14/19 08:50 02/14/19 07:50 02/14/19 08:50 02/14/19 08:50 Exam: She is resting comfortably in bed. She was sleeping when I entered the room but easily awakened and conversed. She answers questions appropriately. Heart was regular with frequent ectopics with rate 104/minute. Lungs are clear anteriorly. Extremities show no edema. I reviewed her medications and lab results. Internal Medicine: Result - Labs CBC & Chem 7: 02/13/19 13:11 02/13/19 13:11 Labs: Short CBC 02/13/19 Range/Units 13:11 WBC 10.7 (4.3-11.1) K/mcL Hgb 13.1 (11.5-15.4) g/dL Hct 38.6 (35.3-44.9) % Plt Count 275 (140-400) K/mcL Neutrophils # 6.8 (1.6-8.9) K/mcL BMP 02/13/19 13:11 Sodium 138 Potassium 3.5 Chloride 103 Carbon Dioxide 28 BUN 24 H Creatinine 0.66 Glucose 304 H Calcium 9.3 Cardiac Enzymes 02/13/19 02/13/19 02/14/19 Range/Units 13:11 19:17 01:00 Troponin I < 0.03 < 0.03 < 0.03 (< 0.04) ng/mL 02/14/19 Range/Units 07:46 Troponin I < 0.03 (< 0.04) ng/mL - ABG Interpretation ABG results: PT/INR, D-dimer PT 11.4 Seconds (9.4-12.1) 02/13/19 13:11 - Impressions Impressions Chest X-Ray 02/13/19 13:13 IMPRESSION: No acute process. Stable exam. D/ / Wicho Celis MD / Wicho Celis MD Interpreting Provider: Wicho Celis MD Head CT 02/14/19 08:48 IMPRESSION: No acute intracranial abnormality. D/ / Jimmie Oconnor MD / Jimmie Oconnor MD Interpreting Provider: Jimmie Oconnor MD Consult Discharge Plan - Plan Referrals: Sonia Peoples, JAMIE [Primary Care Provider] - 1 week
[2019-02-14 09:45] LABS: Creatine Kinase 64 Units/L (30-223)
[2019-02-14] MEDS ORDERED: Albuterol 2.5 MG/3 ML NEBULIZER IH PRN (09:47)
[2019-02-14 09:53] LABS: Troponin I < 0.03 ng/mL (< 0.04)
--- NOTE | 2019-02-14 13:01 | Urgent Care Visit Notes ---
Disposition Clinical Impression: Chest pain Qualifiers: Chest pain type: chest pain on breathing Qualified Code(s): R07.1 - Chest pain on breathing Disposition: Admitted As Inpatient Condition: Fair History of Present Illness - General Chief complaint: ED Chest Pain Stated complaint: chest pain x 3 days Time Seen by Provider: 02/13/19 13:09 Limitations: no limitations - History of Present Illness Pain Scale: 0 - Related Data Home Medications Medication Instructions Recorded Confirmed Albuterol Neb [Proventil Neb] 2.5 mg IH Q4HR 10/17/16 02/13/19 Albuterol Sulfate [Proair Hfa] 2 puff IH Q4H PRN 10/17/16 02/13/19 Aspirin [Lo-Dose Aspirin EC] 81 mg PO DAILY 10/17/16 02/13/19 Budesonide/Formoterol 160/4.5 2 puff IH BID 10/17/16 02/13/19 [Symbicort 160/4.5] Insulin DETEMIR [Levemir Flextouch] 7 unit SQ QPM 10/17/16 02/13/19 Mv W-Ca/Iron/FA/Lutein/Hrb#179 1 each PO DAILY 10/17/16 02/13/19 [Bg Multivit For Women Caplet] ALPRAZolam [Xanax 1 MG Tablet] 1 mg PO TID 12/25/17 02/13/19 Empagliflozin [Jardiance] 10 mg PO DAILY 12/25/17 02/13/19 Nitroglycerin [Nitrostat] 0.4 mg SL Q5M PRN 12/25/17 02/13/19 Cyclobenzaprine [Flexeril] 1 tab PO PRN PRN 02/20/18 02/13/19 Ranitidine HCl [Acid Data Compiler] 150 mg PO DAILY 05/05/18 02/13/19 Previous Rx's Medication Instructions Recorded Ascorbic Acid [C-500] 500 mg PO DAILY #30 tablet 05/10/18 Cyanocobalamin (B-12) [Vitamin B12] 1,000 mcg PO DAILY #30 tablet 05/10/18 Ferrous Sulfate 325 mg PO DAILY #30 tablet 05/10/18 Meloxicam 7.5 mg PO DAILY #10 tablet 01/30/19 Allergies Allergy/AdvReac Type Severity Reaction Status Date / Time No Known Allergies Allergy Verified 05/05/18 12:54 Past Medical History - Past Medical History Medical history: Reports: COPD, coronary artery disease, diabetes, GERD, hy pertension, kidney stones, myocardial infarction Surgical history: Reports: appendectomy, cholecystectomy, coronary bypass (CABG), herniorrhaphy, hysterectomy Psychiatric history: Reports: depression - Social History Smoking Status: Former smoker Smokeless Tobacco Status: No Alcohol use: Reports: none Drug use: Reports: none Physical Exam - General Limitations: Present: no limitations General appearance: Present: alert, in no apparent distress Medical Decision Making - [facility] Narrative Medical decision making narrative: This morning the patient showed up from EMS who were bringing the patient from our MedSurg floor to an MRI facility but as they left the hospital he noticed a change in the mental status of the patient so they diverted and turned around and came [facility] staff [facility] that they were bypassing MedSurg and going directly to our ER. In the ER the patient was placed on our cot and monitor. She was briefly evaluated by myself and found to be in stable condition. Since this patient was already admitted to our facility on the MedSurg floor we have no ability in the emergency department to place orders. I called the MedSurg floor talk to his nurse and we agreed the patient should come back to the [facility] floor. Dr. Worrell had already been notified and given orders to give the patient insulin to decrease her hyperglycemia. Upon the patient's arrival to the floor the charge nurse called a rapid response. I responded to the patient she was the same as she was when she was in the emergency department. She did start shaking with her left arm and doing sit up type motions. This did not appear to be a true seizure. However her chart was briefly reviewed and she was given Ativan 1 mg IV and laboratory studies and CT were ordered and Dr. Worrell was notified of the patient's orders and condition. - Lab Data Result diagrams: 02/13/19 13:11 02/13/19 13:11 Lab Results 02/13/19 02/13/19 02/13/19 Range/Units 13:11 13:11 13:11 WBC 10.7 (4.3-11.1) K/mcL RBC 4.55 (3.82-4.97) M/mcL Hgb 13.1 (11.5-15.4) g/dL Hct 38.6 (35.3-44.9) % MCV 84.8 (83.0-100.0) fL MCH 28.8 (28.0-33.3) pg MCHC 33.9 (31.6-35.5) g/dL RDW 14.3 (11.5-14.5) % Plt Count 275 (140-400) K/mcL MPV 11.4 (9.4-12.4) fL Immature Gran % 0.4 (0-4) % Seg Neutrophils % 63.9 % Lymphocytes % 27.3 % Monocytes % 5.6 % Eosinophils % 2.2 % Basophils % 0.6 % Neutrophils # 6.8 (1.6-8.9) K/mcL Lymphocytes # 2.9 (0.6-4.6) K/mcL Monocytes # 0.6 (0.0-1.3) K/mcL Eosinophils # 0.2 (0.0-0.6) K/mcL Basophils # 0.1 (0.0-0.2) K/mcL PT 11.4 (9.4-12.1) Seconds INR 1.0 APTT 33.1 (26.0-36.0) Seconds Sodium (136-145) mEq/L Potassium (3.5-5.1) mEq/L Chloride (98-107) mEq/L Carbon Dioxide (23-29) mEq/L BUN (8-23) mg/dL Creatinine (0.60-1.20) mg/dL Est GFR ( Amer) (> 60) Est GFR (Non-Af Amer) (> 60) BUN/Creatinine Ratio (6-26) Glucose (70-105) mg/dL Calculated Osmolality (280-300) Calcium (8.6-10.3) mg/dL Troponin I (< 0.04) ng/mL B-Natriuretic Peptide 83 (Less than 100) pg/mL 02/13/19 Range/Units 13:11 WBC (4.3-11.1) K/mcL RBC (3.82-4.97) M/mcL Hgb (11.5-15.4) g/dL Hct (35.3-44.9) % MCV (83.0-100.0) fL MCH (28.0-33.3) pg MCHC (31.6-35.5) g/dL RDW (11.5-14.5) % Plt Count (140-400) K/mcL MPV (9.4-12.4) fL Immature Gran % (0-4) % Seg Neutrophils % % Lymphocytes % % Monocytes % % Eosinophils % % Basophils % % Neutrophils # (1.6-8.9) K/mcL Lymphocytes # (0.6-4.6) K/mcL Monocytes # (0.0-1.3) K/mcL Eosinophils # (0.0-0.6) K/mcL Basophils # (0.0-0.2) K/mcL PT (9.4-12.1) Seconds INR APTT (26.0-36.0) Seconds Sodium 138 (136-145) mEq/L Potassium 3.5 (3.5-5.1) mEq/L Chloride 103 (98-107) mEq/L Carbon Dioxide 28 (23-29) mEq/L BUN 24 H (8-23) mg/dL Creatinine 0.66 (0.60-1.20) mg/dL Est GFR ( Amer) > 60 (> 60) Est GFR (Non-Af Amer) > 60 (> 60) BUN/Creatinine Ratio 36 H (6-26) Glucose 304 H (70-105) mg/dL Calculated Osmolality 301 H (280-300) Calcium 9.3 (8.6-10.3) mg/dL Troponin I < 0.03 (< 0.04) ng/mL B-Natriuretic Peptide (Less than 100) pg/mL Course Vital Signs Temperature 98.2 F 02/13/19 12:59 Pulse Rate 100 02/13/19 12:59 Respiratory Rate 18 02/13/19 12:59 Blood Pressure 156/67 02/13/19 12:59 O2 Sat by Pulse Oximetry 95 02/13/19 12:59 Temperature 97.3 F L 02/14/19 06:41 Pulse Rate 113 02/14/19 08:50 Respiratory Rate 18 02/14/19 07:50 Blood Pressure 185/112 02/14/19 08:50 O2 Sat by Pulse Oximetry 93 02/14/19 08:50 Oxygen Delivery Oxygen Delivery Room Air
[2019-02-14] MEDS: Insulin DETEMIR 100 UNIT/ML X5UNITS SQ SCH (16:46)
[2019-02-14] MEDS: Azithromycin 500 MG in D5% in Water 250 ML IVPB SCH (21:36)
[2019-02-15 06:41] LABS: Basophils % 0.3 %; Eosinophils % 0.2 %; Hematocrit 36.9 % (35.3-44.9); Hemoglobin 11.9 g/dL (11.5-15.4); Immature Granulocytes % 0.4 % (0-4); Lymphocytes # 2.6 K/mcL (0.6-4.6); Lymphocytes % 20.5 %; Mean Corpuscular HGB Conc 32.2 g/dL (31.6-35.5); Mean Corpuscular Hemoglobin 28.3 pg (28.0-33.3); Mean Corpuscular Volume 87.9 fL (83.0-100.0); Mean Platelet Volume 11.7 fL (9.4-12.4); Monocytes # 0.6 K/mcL (0.0-1.3); Monocytes % 4.3 %; Neutrophils # 9.5 K/mcL (1.6-8.9); Platelet Count 242 K/mcL (140-400); Red Cell Distribution Width 14.6 % (11.5-14.5); Segmented Neutrophils % 74.3 %
[2019-02-15 07:03] LABS: Alanine Aminotransferase 11 Units/L (7-52); Albumin 3.7 g/dL (3.5-5.7); Albumin/Globulin Ratio 1.3 (1.1-2.2); Alkaline Phosphatase 95 Units/L (34-104); Aspartate Amino Transferase 10 Units/L (13-39); BUN/Creatinine Ratio 37 (6-26); Bilirubin,Total 0.3 mg/dL (0.3-1.0); Blood Urea Nitrogen 26 mg/dL (8-23); Calcium 8.7 mg/dL (8.6-10.3); Carbon Dioxide 32 mEq/L (23-29); Chloride 104 mEq/L (98-107); Globulin 2.9 g/dL (2.4-3.5); Glucose 199 mg/dL (70-105); Magnesium 2.3 mg/dL (1.6-2.6); Osmolality,Calculated 304 (280-300); Potassium 3.9 mEq/L (3.5-5.1); Sodium 142 mEq/L (136-145); Total Protein 6.6 g/dL (6.4-8.9); eGFR For Non-African Americans > 60 (> 60)
[2019-02-15] MEDS: cefTRIAXone 1,000 MG in Water for inj. (sterile) 20 ML 10 ML IVP SCH (09:54)
[2019-02-15] MEDS: Aspirin Enteric Coated 81 MG Tablet PO SCH (09:55)
[2019-02-15] MEDS: Lactobacillus 1 EACH CAP.SPRINK PO SCH (09:55)
[2019-02-15] MEDS: ALPRAZolam 1 MG TABLET PO SCH (09:55)
[2019-02-15] MEDS: Famotidine 20 MG TABLET PO SCH (09:55)
[2019-02-15] MEDS: JARDIANCE 10MG PO SCH (09:56)
[2019-02-15] MEDS: Insulin LISPRO 300 UNITS/3 ML VIAL SQ SCH (10:14)
[2019-02-15 10:40] VITALS: BP 156/86
--- NOTE | 2019-02-15 10:53 | Discharge Summary ---
Date of Encounter: 02/15/19 Time of Encounter: 10:00 - Discharge Diagnosis (1) Chest pain Priority: Primary Status: Acute Qualifiers: Chest pain type: chest pain on breathing Qualified Code(s): R07.1 - Chest pain on breathing; R07.81 - Pleurodynia (2) COPD exacerbation Priority: Secondary Status: Acute (3) HTN (hypertension) Priority: Secondary Status: Chronic Qualifiers: Hypertension type: essential hypertension Qualified Code(s): I10 - Essential (primary) hypertension (4) DM type 2 (diabetes mellitus, type 2) Priority: Secondary Status: Chronic Qualifiers: Diabetes mellitus fdc insulin use: with fdc use Diabetes mellitus complication status: without complication Qualified Code(s): E11.9 - Type 2 diabetes mellitus without complications; Z79.4 - terminal gauger (current) use of insulin (5) Rotator cuff tear arthropathy of right shoulder Priority: Secondary Status: Acute Hospital course: Ms. Laird is a 68 year old female who came to emergency room stating she had said of cough with little productivity and discomfort in her left lateral chest and radiated to her interscapular area over the last 2 days. She reports fevers and chills. She states her grandson was diagnosed with the flu several days ago when she was prescribed Tamiflu completing a 10 day course last week for prophylaxis. She was evaluated emergency room and was felt to deserve admission because of the chest pain. Initial orders were written by the emergency room physician. I saw her on February 13 and performed a history and physical. Repeat cardiac enzymes showed no evidence of myocardial damage. I felt the pain was likely to be chest wall origin. She was started on Naprosyn and had significant improvement by day of discharge. She will continue Naprosyn for 3 additional days at discharge. MRI was ordered to evaluate for possible right rotator cuff injury from fall a few days earlier. Shortly after leaving [facility] by transport team to go to [facility] patient had decreased responsiveness. She was brought back to [facility] and sent to the emergency room. After appropriate brief evaluation was felt stable to return to [facility] floor. There was question of seizure activity but after discussions with the ER physician and her MedSur nurse I am not convinced she had a seizure. She will continue with her Xanax as at home. Her mental status returned to baseline by the time I saw her later the morning of February 14. CT showed no acute pathology. MRI of right shoulder was done on the morning of February 15. There was a small full-thickness tear of the distal supraspinatus tendon and mild to moderate subscapularis tendinosis. There was mild increased fluid in the subacromial/subdeltoid bursa. Contact was made with [facility] bone and joint. They scheduled the patient to follow up 02/16/2019 as an outpatient. She will continue Naprosyn 500 mg twice a day for 3 days. Patient's blood pressure showed significant fluctuation during her hospital stay. Her PCP can monitor and adjust medications as needed. She will follow with her PCP Sonia Peoples CNP within 1 week. - Time Spent with Patient Total time spent providing and/or coordinating discharge services: - Discharge Medications Prescriptions: New Naproxen [Naprosyn] 500 mg PO BIDWM #6 tablet Continue Albuterol Neb [Proventil Neb] 2.5 mg IH Q4HR Insulin DETEMIR [Levemir Flextouch] 7 unit SQ QPM Mv W-Ca/Iron/FA/Lutein/Hrb#179 [Bg Multivit For Women Caplet] 1 each PO DAILY Aspirin [Lo-Dose Aspirin EC] 81 mg PO DAILY Albuterol Sulfate [Proair Hfa] 2 puff IH Q4H PRN PRN Reason: Shortness Of Breath Budesonide/Formoterol 160/4.5 [Symbicort 160/4.5] 2 puff IH BID Nitroglycerin [Nitrostat] 0.4 mg SL Q5M PRN PRN Reason: Chest Pain Empagliflozin [Jardiance] 10 mg PO DAILY ALPRAZolam [Xanax 1 MG Tablet] 1 mg PO TID Cyclobenzaprine [Flexeril] 1 tab PO PRN PRN PRN Reason: Spasms Ranitidine HCl [Acid Social Media Coordinator] 150 mg PO DAILY Ascorbic Acid [C-500] 500 mg PO DAILY #30 tablet Cyanocobalamin (B-12) [Vitamin B12] 1,000 mcg PO DAILY #30 tablet Ferrous Sulfate 325 mg PO DAILY #30 tablet Discontinued Meloxicam 7.5 mg PO DAILY #10 tablet Home Medications: Albuterol Neb [Proventil Neb] 2.5 mg IH Q4HR 10/17/16 [History] Albuterol Sulfate [Proair Hfa] 2 puff IH Q4H PRN 10/17/16 [History] Aspirin [Lo-Dose Aspirin EC] 81 mg PO DAILY 10/17/16 [History] Budesonide/Formoterol 160/4.5 [Symbicort 160/4.5] 2 puff IH BID 10/17/16 [History] Insulin DETEMIR [Levemir Flextouch] 7 unit SQ QPM 10/17/16 [History] Mv W-Ca/Iron/FA/Lutein/Hrb#179 [Bg Multivit For Women Caplet] 1 each PO DAILY 10/17/16 [History] ALPRAZolam [Xanax 1 MG Tablet] 1 mg PO TID 12/25/17 [History] Empagliflozin [Jardiance] 10 mg PO DAILY 12/25/17 [History] Nitroglycerin [Nitrostat] 0.4 mg SL Q5M PRN 12/25/17 [History] Cyclobenzaprine [Flexeril] 1 tab PO PRN PRN 02/20/18 [History] Ranitidine HCl [Acid Social Media Coordinator] 150 mg PO DAILY 05/05/18 [History] Ascorbic Acid [C-500] 500 mg PO DAILY #30 tablet 05/10/18 [Rx] Cyanocobalamin (B-12) [Vitamin B12] 1,000 mcg PO DAILY #30 tablet 05/10/18 [Rx] Ferrous Sulfate 325 mg PO DAILY #30 tablet 05/10/18 [Rx] Naproxen [Naprosyn] 500 mg PO BIDWM #6 tablet 02/15/19 [Rx] Allergies/Adverse Reactions: Allergy/AdvReac Type Severity Reaction Status Date / Time No Known Allergies Allergy Verified 05/05/18 12:54 Date of admission: 02/13/19 14:32 Primary care physician: Sonia Peoples CNP - Constitutional Vitals: Temp Pulse Resp BP Pulse Ox 97.6 F 77 20 156/86 95 02/15/19 10:39 02/15/19 10:39 02/15/19 10:39 02/15/19 10:39 02/15/19 10:39 - Patient Status Disposition: Home, Self-Care Condition: Fair - Discharge Instructions Follow Up With: Sonia Peoples CNP [Primary Care Provider] - 1 week - Diet and Activity Activity: resume usual activities as tolerated Diet: advance to your usual diet
--- NOTE | 2019-02-15 20:42 | Electrocardiograph Report ---
[address] [address] Test Date: 2019-02-14 Pat Name: Gaby Laird Department: [id number] Room: [facility] Gender: F Motion Picture Director: [id number] : 1950 Requested By: Woodrow Call Order Number: [id number] Reading MD: Catherine Galvez Measurements Intervals [place] Rate: 111 P: 77 AL: 216 QRS: 33 QRSD: 89 T: 56 QT: 327 QTc: 393 Interpretive Statements SINUS TACHYCARDIA WITH FIRST DEGREE AV BLOCK WITH FREQUENT VENTRICULAR PREMATURE COMPLEXES NONSPECIFIC ST & T-WAVE ABNORMALITY Electronically Signed On 02-15-2019 20:40:44 EDT by Catherine Galvez
== END 2019-02-15 11:39 | disposition home or self-care (01) ==
LOC: INPPIK 12:57 → EMEROOPIK 12:57 → INPPIK 15:10
PROVIDERS: ADMIT Internal Medicine; ATTEND Internal Medicine

== ENCOUNTER 2019-05-21 17:26 | Inpatient (IN) ==
[2019-05-21] MEDS ORDERED: Nitroglycerin 0.4 MG TAB.SUBL SL PRN (23:35)
[2019-05-22] MEDS: *HR* HYDROcodone/Acet 5/325 mg TABLET PO PRN ×2 (02:08→07:55)
[2019-05-22] MEDS: Ascorbic Acid 500 MG TABLET PO SCH ×2 (07:56→20:17)
[2019-05-22] MEDS: Cyanocobalamin (B-12) 1,000 MCG TABLET PO SCH ×2 (07:56→20:17)
[2019-05-22] MEDS: Aspirin Enteric Coated 81 MG Tablet PO SCH (07:56)
[2019-05-22] MEDS: Furosemide 40 MG TABLET PO SCH (07:56)
[2019-05-22] MEDS: Gabapentin 300 MG CAPSULE PO SCH ×3 (07:56→20:17)
[2019-05-22] MEDS: Fluticasone Propionate Nasal 50 MCG/SPRAY BOTTLE NS SCH ×2 (07:56→20:18)
[2019-05-22] MEDS: Multivit/Ca/Min/Fe/FA 1 TAB TABLET PO SCH (07:56)
[2019-05-22] MEDS ORDERED: *HR* GlyBURIDE 2.5 MG TABLET PO SCH (09:00)
[2019-05-22] MEDS: BECLOMETHASONE DIP 40 MCG IH SCH (10:48)
[2019-05-22] MEDS: *HR* GlyBURIDE 5 MG TABLET PO SCH (11:07)
[2019-05-22] MEDS ORDERED: *HR* OxyCODONE/APAP 5/325 TABLET PO PRN (12:59)
--- NOTE | 2019-05-22 14:52 | Internal Med History&Physical ---
Date of Encounter: 05/22/19 Time of Encounter: 14:20 Assessment and Plan (1) Fracture of distal fibula Current visit: No Status: Acute Status post ORIF surgery 05/18/2019. PT and OT evaluation has been ordered. Analgesics will be given. Xarelto has been ordered for DVT prophylaxis. Qualifiers: Encounter type: subsequent encounter Fracture type: closed Fracture morphology: unspecified fracture morphology Laterality: left Fracture healing: with routine healing Qualified Code(s): S82.832D - Other fracture of upper and lower end of left fibula, subsequent encounter for closed fracture with routine healing (2) Metatarsal fracture Current visit: Yes Status: Acute Status post ORIF surgery 05/18/2019. Continue ordered Rx. Qualifiers: Encounter type: subsequent encounter Metatarsal bone: unspecified metatarsal Fracture type: closed Fracture alignment: nondisplaced Laterality: left Fracture healing: with routine healing Qualified Code(s): S92.302D - Fracture of unspecified metatarsal bone(s), left foot, subsequent enc ounter for fracture with routine healing (3) Hyperlipidemia Current visit: Yes Status: Chronic Continue Lipitor Qualifiers: Hyperlipidemia type: unspecified Qualified Code(s): E78.5 - Hyperlipidemia, unspecified (4) HTN (hypertension) Current visit: No Status: Chronic Continue lisinopril and Lasix Qualifiers: Hypertension type: essential hypertension Qualified Code(s): I10 - Essential (primary) hypertension (5) DM type 2 (diabetes mellitus, type 2) Current visit: No Status: Chronic Hemoglobin A1c was 9.6% on 05/17/2019. Continue glyburide and Accu-Cheks with SSI. Qualifiers: Diabetes mellitus oysterman insulin use: with oysterman use Diabetes mellitus complication status: without complication Qualified Code(s): E11.9 - Type 2 diabetes mellitus without complications; Z79.4 - terminal operations supervisor (current) use of insulin (6) CAD (coronary artery disease) Current visit: No Status: Acute Continue aspirin and Lipitor. Qualifiers: Coronary Disease-Associated Artery/Lesion type: [place] artery [place] vs. transplanted heart: [place] heart Associated angina: without angina Qualified Code(s): I25.10 - Atherosclerotic heart disease of [place] coronary artery without angina pectoris Internal Medicine - H&P: HPI Chief complaint: Left foot and ankle fracture Admitted From: Hospital to Hospital Transfer Plans for Post Hospital Care: Home History of present illness: Ms. Laird is a 69 year old female who was hospitalized at [facility] May 17 after experiencing a fall at home sustaining a left fibular fracture and left 1- 4 metatarsal fractures. She underwent ORIF surgery 05/18/2018 with plate and screw repairs. She was discharged to [facility] swing bed rehabilitation therapy prior to returning to independent living at home. Musculoskeletal history is significant for small right shoulder full-thickness tear of the distal supraspinatus tendon and mild to moderate subscapularis tendinosis following a fall January 2019. She received outpatient PT and had significant improvement. She denies gout or other bone joint or muscle disorders. Past Med Surg Social Fam HX - Past Medical History Medical history: COPD, coronary artery disease, diabetes, GERD, hyperlipidemia, hypertension, kidney stones, myocardial infarction Additional medical history: ANEMIA, MRSA, WEARS HOME 02 AT 2LITERS NEEDED, SLEEP APNEA Psychiatric history: depression - Past Surgical History Surgical History: appendectomy, cholecystectomy, coronary bypass (CABG), herniorrhaphy, hysterectomy Additional surgical history: T&A, I&D TO STERNAL WOUND INFECTION - Social History Smoking Status: Former smoker Smokeless Tobacco Status: No Alcohol use: none Drug use: none - Family History Mother Living Status: Hx Family Cancer: Yes Hx Family Endocrine Disorder: Yes Father Living Status: Hx Family Cancer: Yes Hx Family Endocrine Disorder: Yes Internal Medicine - H&P: Meds Albuterol Neb [Proventil Neb] 2.5 mg IH Q6HR PRN 10/17/16 [History] Mv W-Ca/Iron/FA/Lutein/Hrb#179 [Bg Multivit For Women Caplet] 1 tab PO DAILY 10/17/16 [History] Nitroglycerin [Nitrostat] 0.4 mg SL Q5M PRN 12/25/17 [History] Cyclobenzaprine [Flexeril] 10 mg PO TID PRN 02/20/18 [History] Ascorbic Acid [Vitamin C] 500 mg PO BID 04/18/19 [History] Atorvastatin Calcium [Lipitor] 20 mg PO DAILY 04/18/19 [History] Beclomethasone Dip 40mcg REDIH [Qvar 40 Mcg Redihaler] 2 puff IH DAILY 04/18/19 [History] Ferrous Sulfate 325 mg PO DAILY 04/18/19 [History] Furosemide [Lasix] 80 mg PO DAILY 04/18/19 [History] Loratadine [Allergy Relief] 10 mg PO DAILY PRN 04/18/19 [History] Naproxen [Naprosyn] 500 mg PO Q12H PRN 04/18/19 [History] Omeprazole [PriLOSEC] 40 mg PO BID 04/18/19 [History] Potassium Chloride [K-Tab ER] 20 meq PO DAILY 04/18/19 [History] Gabapentin [Neurontin] 300 mg PO QAM 04/24/19 [History] Albuterol Sulfate [Albuterol Inhaler] 2 puff IH Q4-6H PRN 05/18/19 [History] Alprazolam [Xanax] 2 mg PO TID PRN 05/18/19 [History] Aspirin [Adult Aspirin Regimen] 81 mg PO DAILY 05/18/19 [History] Cyanocobalamin (Vitamin B-12) [Vitamin B-12] 1,000 mcg PO BID 05/18/19 [History] Fluticasone Propionate Nasal [Flonase] 2 spray NS BID 05/18/19 [History] Gabapentin [Neurontin] 300 mg PO QPM 05/18/19 [History] Gabapentin [Neurontin] 600 mg PO HS 05/18/19 [History] Lisinopril 2.5 mg PO DAILY 05/18/19 [History] Rivaroxaban [Xarelto] 10 mg PO 1700 21 Days #21 tablet 05/18/19 [Rx] Zolpidem [Ambien] 10 mg PO HS PRN 05/18/19 [History] glyBURIDE [GlyBURIDE] 1.25 mg PO QAM 05/18/19 [History] HYDROcodone/Acet 5/325 mg [[place] 5-325 mg] 1 tab PO Q6H PRN 4 Days #10 tablet 05/21/19 [Rx] Allergy/AdvReac Type Severity Reaction Status Date / Time No Known Allergies Allergy Verified 05/18/19 18:37 All Systems PM: A 10-system review of systems was performed and is negative for pertinent findings except as documented above in the HPI. Review of systems: Review of systems from her January 2019 [facility] hospitalization were reviewed and revised as below. Gen.: Her weight has minimally changed from 80.739 kg 02/13/2019 to present weight of 78.29 kg Cardiovascular: She has hypertension and known ASHD status post [place] followed by three-vessel CABG in 2014. She has not had stress test or repeat heart catheter since the surgery. She denies known heart failure DVT or pulmonary embolus. Respiratory: She has smoked since age 11 up to one pack every 2 weeks. She denies chronic lung disease and does not use home oxygen. GI: She has had cholecystectomy. She denies disorders of her liver or exocrine pancreas : She has had kidney stones in the past with hematuria. She has cystoscopy November 2017 for hydronephrosis without stones seen. She has had frequent UTIs but denies other kidney or bladder disorders. Endocrine: She was diagnosed with DM 2 in 2012. She has hyperlipidemia but denies thyroid disease. Hematology/oncology: She denies blood disorders cancers or anemia. She has history of low B12 level and is on supplemental B12 as well as supplemental iron. Psychiatric: She has anxiety and depression but denies other mental health diagnoses [place] skeletal: As per history of present illness - Constitutional Vitals: Temp Pulse Resp BP Pulse Ox 97.9 F 92 16 124/77 93 05/22/19 07:40 05/22/19 07:40 05/22/19 10:51 05/22/19 07:40 05/22/19 10:51 Exam: Gen.: She is a well-developed well-nourished female resting comfortably in bed who appears in no acute distress HEENT: Head is atraumatic and normocephalic. Eyes: EOMI. There is no scleral icterus. Mouth: Mucosa is moist. Neck: Supple and nontender. There is no thyromegaly or adenopathy noted. Heart: Regular without murmurs gallops or ectopics Lungs: No wheezes or crackles are heard. Abdomen: Soft and nontender. No masses or guarding are noted. Extremities: There is no cyanosis edema or clubbing noted of the right leg. Dorsalis pedis and posterior tibial pulses are trace to 1+ palpable. The left lower leg has a splint with elastic wrap which I did not remove. She has minimal DJD changes of her hands. Neurologic: Mental status: She is talkative and a good historian. Cranial nerves: Smile is symmetric. Forehead wrinkles bilaterally. Tongue protrudes midline. EOMI. Motor: There is no pronator drift. Cerebellar: Finger to nose is intact bilaterally. Skin: Warm and dry
[2019-05-22] MEDS: *HR* OxyCODONE/APAP 5/325 TABLET PO PRN (17:28)
[2019-05-22] MEDS: *HR* Rivaroxaban 10 MG TABLET PO SCH (17:28)
[2019-05-22] MEDS ORDERED: Ondansetron 4 MG/2 ML VIAL IVP PRN (23:05)
[2019-05-23] MEDS: Ondansetron ODT 4 MG TAB.RAPDIS SL PRN ×2 (05:52→09:50)
[2019-05-23] MEDS: Cyanocobalamin (B-12) 1,000 MCG TABLET PO SCH (07:28)
[2019-05-23] MEDS: Gabapentin 300 MG CAPSULE PO SCH ×3 (07:28→22:56)
[2019-05-23] MEDS: Aspirin Enteric Coated 81 MG Tablet PO SCH (07:28)
[2019-05-23] MEDS: *HR* OxyCODONE/APAP 5/325 TABLET PO PRN (07:28)
[2019-05-23] MEDS: Ascorbic Acid 500 MG TABLET PO SCH ×2 (07:28→22:56)
[2019-05-23] MEDS: Multivit/Ca/Min/Fe/FA 1 TAB TABLET PO SCH (07:29)
[2019-05-23] MEDS: *HR* GlyBURIDE 5 MG TABLET PO SCH (07:38)
[2019-05-23] MEDS: Fluticasone Propionate Nasal 50 MCG/SPRAY BOTTLE NS SCH ×2 (07:40→22:56)
[2019-05-23] MEDS: BECLOMETHASONE DIP 40 MCG IH SCH (10:00)
[2019-05-23] MEDS: Furosemide 40 MG TABLET PO SCH (15:41)
--- NOTE | 2019-05-23 16:29 | Internal Med Progress Note ---
Date of Encounter: 05/23/19 Time of Encounter: 16:22 - Assessment and plan (1) Fracture of distal fibula Current Visit: No Status: Acute Assessment and plan: May 23. Status post ORIF 05/18/2019. Continue PT, OT, and Xarelto. Analgesics will be given as needed. Qualifiers: Encounter type: subsequent encounter Fracture type: closed Fracture morphology: unspecified fracture morphology Laterality: left Fracture healing: with routine healing Qualified Code(s): S82.832D - Other fracture of upper and lower end of left fibula, subsequent encounter for closed fracture with routine healing (2) Metatarsal fracture Current Visit: Yes Status: Acute Assessment and plan: May 23. As above Qualifiers: Encounter type: subsequent encounter Metatarsal bone: unspecified metatarsal Fracture type: closed Fracture alignment: nondisplaced Laterality: left Fracture healing: with routine healing Qualified Code(s): S92.302D - Fracture of unspecified metatarsal bone(s), left foot, subsequent encounter for fracture with routine healing (3) Hyperlipidemia Current Visit: Yes Status: Chronic Assessment and plan: May 23. Continue Lipitor Qualifiers: Hyperlipidemia type: unspecified Qualified Code(s): E78.5 - Hyperlipidemia, unspecified (4) HTN (hypertension) Current Visit: No Status: Chronic Assessment and plan: May 23. Continue lisinopril and Lasix Qualifiers: Hypertension type: essential hypertension Qualified Code(s): I10 - Essential (primary) hypertension (5) DM type 2 (diabetes mellitus, type 2) Current Visit: No Status: Chronic Assessment and plan: May 23. Hemoglobin A1c was 9.6% on 05/17/2019. Continue glyburide and Accu- Cheks with SSI. Qualifiers: Diabetes mellitus detention insulin use: with detention use Diabetes mellitus complication status: without complication Qualified Code(s): E11.9 - Type 2 diabetes mellitus without complications; Z79.4 - terminal carman (current) use of insulin (6) CAD (coronary artery disease) Current Visit: No Status: Acute Assessment and plan: May 23. Continue aspirin and Lipitor Qualifiers: Coronary Disease-Associated Artery/Lesion type: [place] artery [place] vs. transplanted heart: [place] heart Associated angina: without angina Qualified Code(s): I25.10 - Atherosclerotic heart disease of [place] coronary artery without angina pectoris - Subjective Interval history: May 23. She has nausea and had 2 episodes of vomiting earlier. She denies significant pain. - Constitutional Vitals: Temp Pulse Resp BP Pulse Ox 98.4 F 100 24 86/53 88 05/23/19 09:42 05/23/19 15:47 05/23/19 09:42 05/23/19 15:47 05/23/19 09:42 Exam: She is resting comfortably in bed and appears in no acute distress. Her affect is overall cheerful. I reviewed her medications and lab results. Consult Discharge Plan - Plan Referrals: Sonia Peoples, PROGRAM MEDICAL DIRECTOR [Primary Care Provider] - 1 week
[2019-05-23] MEDS: *HR* Rivaroxaban 10 MG TABLET PO SCH (17:55)
[2019-05-23] MEDS: 0.45 % Sodium Chloride w/KCl 20 MEQ/1,000 ML MLS IVC SCH (21:50)
[2019-05-23] MEDS: Ondansetron 4 MG/2 ML VIAL IVP PRN (21:50)
[2019-05-24] MEDS: Ondansetron 4 MG/2 ML VIAL IVP PRN ×3 (05:10→13:27)
[2019-05-24 06:47] LABS: Basophils % 0.3 %; Eosinophils # 0.1 K/mcL (0.0-0.6); Hematocrit 36.3 % (35.3-44.9); Hemoglobin 11.9 g/dL (11.5-15.4); Immature Granulocytes % 0.5 % (0-4); Lymphocytes # 1.4 K/mcL (0.6-4.6); Lymphocytes % 11.9 %; Mean Corpuscular HGB Conc 32.8 g/dL (31.6-35.5); Mean Corpuscular Hemoglobin 28.5 pg (28.0-33.3); Mean Corpuscular Volume 87.1 fL (83.0-100.0); Mean Platelet Volume 12.5 fL (9.4-12.4); Monocytes # 1.1 K/mcL (0.0-1.3); Monocytes % 9.1 %; Neutrophils # 9.2 K/mcL (1.6-8.9); Platelet Count 277 K/mcL (140-400); Red Blood Count 4.17 M/mcL (3.82-4.97); Red Cell Distribution Width 13.9 % (11.5-14.5); Segmented Neutrophils % 77.2 %; White Blood Count 11.9 K/mcL (4.3-11.1)
[2019-05-24 07:05] LABS: Albumin 3.3 g/dL (3.5-5.7); Bilirubin,Total 0.5 mg/dL (0.3-1.0); Calcium 8.6 mg/dL (8.6-10.3); Globulin 3.2 g/dL (2.4-3.5); Potassium 4.5 mEq/L (3.5-5.1); Total Protein 6.5 g/dL (6.4-8.9)
--- NOTE | 2019-05-24 08:48 | Internal Med Progress Note ---
Date of Encounter: 05/24/19 Time of Encounter: 08:41 - Assessment and plan (1) Fracture of distal fibula Current Visit: No Status: Acute Assessment and plan: May 23. Status post ORIF 05/18/2019. Continue PT, OT, and Xarelto. Analgesics will be given as needed. Qualifiers: Encounter type: subsequent encounter Fracture type: closed Fracture morphology: unspecified fracture morphology Laterality: left Fracture healing: with routine healing Qualified Code(s): S82.832D - Other fracture of upper and lower end of left fibula, subsequent encounter for closed fracture with routine healing (2) Metatarsal fracture Current Visit: Yes Status: Acute Assessment and plan: May 23. As above Qualifiers: Encounter type: subsequent encounter Metatarsal bone: unspecified metatarsal Fracture type: closed Fracture alignment: nondisplaced Laterality: left Fracture healing: with routine healing Qualified Code(s): S92.302D - Fracture of unspecified metatarsal bone(s), left foot, subsequent encounter for fracture with routine healing (3) Hyperlipidemia Current Visit: Yes Status: Chronic Assessment and plan: May 23. Continue Lipitor Qualifiers: Hyperlipidemia type: unspecified Qualified Code(s): E78.5 - Hyperlipidemia, unspecified (4) HTN (hypertension) Current Visit: No Status: Chronic Assessment and plan: May 23. Continue lisinopril and Lasix May 24. She has borderline hypotension. Lasix and lisinopril will be held. Qualifiers: Hypertension type: essential hypertension Qualified Code(s): I10 - Essential (primary) hypertension (5) DM type 2 (diabetes mellitus, type 2) Current Visit: No Status: Chronic Assessment and plan: May 23. Hemoglobin A1c was 9.6% on 05/17/2019. Continue glyburide and Accu- Cheks with SSI. Qualifiers: Diabetes mellitus alf insulin use: with terminal worker use Diabetes mellitus complication status: without complication Qualified Code(s): E11.9 - Type 2 diabetes mellitus without complications; Z79.4 - group home (current) use of insulin (6) CAD (coronary artery disease) Current Visit: No Status: Acute Assessment and plan: May 23. Continue aspirin and Lipitor Qualifiers: Coronary Disease-Associated Artery/Lesion type: [place] artery [place] vs. transplanted heart: [place] heart Associated angina: without angina Qualified Code(s): I25.10 - Atherosclerotic heart disease of [place] coronary artery without angina pectoris (7) Acute renal failure Current Visit: Yes Status: Acute Assessment and plan: Likely due to vomiting with dehydration. IV fluids were started last evening. Labs will be monitored. Anti-emetics will be given as needed. Qualifiers: Acute renal failure type: unspecified Qualified Code(s): N17.9 - Acute kidney failure, unspecified - Subjective Interval history: May 23. She has nausea and had 2 episodes of vomiting earlier. She denies significant pain. May 24. She still has nausea and vomiting but denies abdominal discomfort. She still has pain in her left foot - Constitutional Vitals: Temp Pulse Resp BP Pulse Ox 98.2 F 90 18 99/57 97 05/24/19 06:50 05/24/19 06:50 05/24/19 06:50 05/24/19 06:50 05/24/19 06:50 Exam: She is resting comfortably in bed and appears in no acute distress. Her affect is overall cheerful. I reviewed her medications and lab results. Internal Medicine: Result - Labs CBC & Chem 7: 05/24/19 06:25 05/24/19 06:25 Labs: Short CBC 05/24/19 Range/Units 06:25 WBC 11.9 H (4.3-11.1) K/mcL Hgb 11.9 (11.5-15.4) g/dL Hct 36.3 (35.3-44.9) % Plt Count 277 (140-400) K/mcL Neutrophils # 9.2 H (1.6-8.9) K/mcL BMP 05/24/19 06:25 Sodium 133 L Potassium 4.5 Chloride 90 L Carbon Dioxide 30 H BUN 75 H Creatinine 2.11 H Glucose 169 H Calcium 8.6 Liver Function 05/24/19 Range/Units 06:25 Total Bilirubin 0.5 (0.3-1.0) mg/dL AST 14 (13-39) Units/L ALT 9 (7-52) Units/L Alkaline Phosphatase 76 (34-104) Units/L Albumin 3.3 L (3.5-5.7) g/dL Consult Discharge Plan - Plan Referrals: Sonia Peoples, RECEPTION SPECIALIST [Primary Care Provider] - 1 week
[2019-05-24] MEDS: *HR* OxyCODONE/APAP 5/325 TABLET PO PRN ×4 (09:00→21:54)
[2019-05-24] MEDS ORDERED: Furosemide 40 MG TABLET PO SCH (09:00)
[2019-05-24] MEDS: Gabapentin 300 MG CAPSULE PO SCH ×3 (09:00→20:47)
[2019-05-24] MEDS: Multivit/Ca/Min/Fe/FA 1 TAB TABLET PO SCH (09:01)
[2019-05-24] MEDS: Ascorbic Acid 500 MG TABLET PO SCH ×2 (09:01→20:46)
[2019-05-24] MEDS: Cyanocobalamin (B-12) 1,000 MCG TABLET PO SCH (09:01)
[2019-05-24] MEDS: Fluticasone Propionate Nasal 50 MCG/SPRAY BOTTLE NS SCH ×2 (09:01→20:47)
[2019-05-24] MEDS: 0.45 % Sodium Chloride w/KCl 20 MEQ/1,000 ML MLS IVC SCH ×2 (09:18→20:47)
[2019-05-24] MEDS: *HR* GlyBURIDE 5 MG TABLET PO SCH (09:30)
[2019-05-24] MEDS: BECLOMETHASONE DIP 40 MCG IH SCH (10:07)
[2019-05-24] MEDS: *HR* FentaNYL PATCH 12 MCG PATCH TD SCH (15:26)
[2019-05-24] MEDS: MOM Conc 10 ML UD.LIQ PO SCH (15:26)
[2019-05-25 06:19] LABS: Basophils % 0.3 %; Eosinophils # 0.3 K/mcL (0.0-0.6); Eosinophils % 2.7 %; Hematocrit 34.2 % (35.3-44.9); Hemoglobin 10.9 g/dL (11.5-15.4); Immature Granulocytes % 0.5 % (0-4); Lymphocytes # 1.9 K/mcL (0.6-4.6); Mean Corpuscular HGB Conc 31.9 g/dL (31.6-35.5); Mean Corpuscular Hemoglobin 28.2 pg (28.0-33.3); Mean Corpuscular Volume 88.6 fL (83.0-100.0); Mean Platelet Volume 12.3 fL (9.4-12.4); Monocytes % 10.4 %; Neutrophils # 6.4 K/mcL (1.6-8.9); Platelet Count 247 K/mcL (140-400); Red Blood Count 3.86 M/mcL (3.82-4.97); Red Cell Distribution Width 13.9 % (11.5-14.5); Segmented Neutrophils % 66.1 %; White Blood Count 9.6 K/mcL (4.3-11.1)
[2019-05-25 06:53] LABS: Calcium 8.8 mg/dL (8.6-10.3); Magnesium 3.1 mg/dL (1.6-2.6); Potassium 4.5 mEq/L (3.5-5.1)
[2019-05-25] MEDS: *HR* GlyBURIDE 5 MG TABLET PO SCH (08:49)
[2019-05-25] MEDS: Cyanocobalamin (B-12) 1,000 MCG TABLET PO SCH (08:49)
[2019-05-25] MEDS: Gabapentin 300 MG CAPSULE PO SCH ×3 (08:49→21:43)
[2019-05-25] MEDS: *HR* OxyCODONE/APAP 5/325 TABLET PO PRN ×4 (08:50→21:43)
[2019-05-25] MEDS: Ascorbic Acid 500 MG TABLET PO SCH ×2 (08:50→21:43)
[2019-05-25] MEDS: Multivit/Ca/Min/Fe/FA 1 TAB TABLET PO SCH (08:50)
[2019-05-25] MEDS: Fluticasone Propionate Nasal 50 MCG/SPRAY BOTTLE NS SCH ×2 (08:51→21:44)
[2019-05-25] MEDS: 0.45 % Sodium Chloride w/KCl 20 MEQ/1,000 ML MLS IVC SCH ×2 (08:56→21:42)
[2019-05-25] MEDS: BECLOMETHASONE DIP 40 MCG IH SCH (09:43)
[2019-05-25] MEDS: *HR* Rivaroxaban 10 MG TABLET PO SCH (18:00)
[2019-05-26] MEDS: *HR* OxyCODONE/APAP 5/325 TABLET PO PRN ×3 (09:25→20:39)
[2019-05-26] MEDS: Cyanocobalamin (B-12) 1,000 MCG TABLET PO SCH (09:26)
[2019-05-26] MEDS: Gabapentin 300 MG CAPSULE PO SCH ×3 (09:26→20:39)
[2019-05-26] MEDS: Ascorbic Acid 500 MG TABLET PO SCH ×2 (09:26→20:39)
[2019-05-26] MEDS: Multivit/Ca/Min/Fe/FA 1 TAB TABLET PO SCH (09:26)
[2019-05-26] MEDS: *HR* GlyBURIDE 5 MG TABLET PO SCH (09:29)
[2019-05-26] MEDS: Fluticasone Propionate Nasal 50 MCG/SPRAY BOTTLE NS SCH ×2 (09:30→20:39)
[2019-05-26] MEDS: BECLOMETHASONE DIP 40 MCG IH SCH (09:55)
[2019-05-26] MEDS: 0.45 % Sodium Chloride w/KCl 20 MEQ/1,000 ML MLS IVC SCH ×2 (10:12→23:44)
[2019-05-26] MEDS: MOM Conc 10 ML UD.LIQ PO SCH (15:41)
[2019-05-26] MEDS: *HR* Rivaroxaban 10 MG TABLET PO SCH (17:02)
[2019-05-27] MEDS: Cyanocobalamin (B-12) 1,000 MCG TABLET PO SCH (08:37)
[2019-05-27] MEDS: Gabapentin 300 MG CAPSULE PO SCH ×3 (08:37→19:36)
[2019-05-27] MEDS: *HR* OxyCODONE/APAP 5/325 TABLET PO PRN ×3 (08:37→19:36)
[2019-05-27] MEDS: Ascorbic Acid 500 MG TABLET PO SCH ×2 (08:38→19:36)
[2019-05-27] MEDS: Multivit/Ca/Min/Fe/FA 1 TAB TABLET PO SCH (08:38)
[2019-05-27] MEDS: Fluticasone Propionate Nasal 50 MCG/SPRAY BOTTLE NS SCH ×2 (08:41→19:37)
[2019-05-27] MEDS: *HR* GlyBURIDE 5 MG TABLET PO SCH (08:41)
[2019-05-27] MEDS: BECLOMETHASONE DIP 40 MCG IH SCH (10:18)
[2019-05-27] MEDS: *HR* FentaNYL PATCH 12 MCG PATCH TD SCH (15:26)
[2019-05-27] MEDS: *HR* Rivaroxaban 10 MG TABLET PO SCH (16:34)
[2019-05-28] MEDS: *HR* OxyCODONE/APAP 5/325 TABLET PO PRN ×3 (07:00→17:36)
[2019-05-28] MEDS: BECLOMETHASONE DIP 40 MCG IH SCH (09:11)
[2019-05-28] MEDS: Gabapentin 300 MG CAPSULE PO SCH ×3 (10:04→20:48)
[2019-05-28] MEDS: Ascorbic Acid 500 MG TABLET PO SCH ×2 (10:04→20:49)
[2019-05-28] MEDS: Multivit/Ca/Min/Fe/FA 1 TAB TABLET PO SCH (10:04)
[2019-05-28] MEDS: Cyanocobalamin (B-12) 1,000 MCG TABLET PO SCH (10:17)
[2019-05-28] MEDS: Fluticasone Propionate Nasal 50 MCG/SPRAY BOTTLE NS SCH ×2 (10:17→20:50)
[2019-05-28] MEDS: *HR* GlyBURIDE 5 MG TABLET PO SCH (10:17)
[2019-05-28] MEDS: Albuterol 2.5 MG/3 ML NEBULIZER IH PRN (11:37)
[2019-05-28] MEDS: MOM Conc 10 ML UD.LIQ PO SCH (13:43)
[2019-05-28] MEDS: *HR* GlyBURIDE 2.5 MG TABLET PO SCH (13:43)
[2019-05-28] MEDS: *HR* Rivaroxaban 10 MG TABLET PO SCH (17:32)
--- NOTE | 2019-05-28 17:32 | Internal Med Progress Note ---
Date of Encounter: 05/28/19 Time of Encounter: 17:25 - Assessment and plan (1) Fracture of distal fibula Current Visit: No Status: Acute Assessment and plan: May 23. Status post ORIF 05/18/2019. Continue PT, OT, and Xarelto. Analgesics will be given as needed. Qualifiers: Encounter type: subsequent encounter Fracture type: closed Fracture morphology: unspecified fracture morphology Laterality: left Fracture healing: with routine healing Qualified Code(s): S82.832D - Other fracture of upper and lower end of left fibula, subsequent encounter for closed fracture with routine healing (2) Metatarsal fracture Current Visit: Yes Status: Acute Assessment and plan: May 23. As above Qualifiers: Encounter type: subsequent encounter Metatarsal bone: unspecified metatarsal Fracture type: closed Fracture alignment: nondisplaced Laterality: left Fracture healing: with routine healing Qualified Code(s): S92.302D - Fracture of unspecified metatarsal bone(s), left foot, subsequent encounter for fracture with routine healing (3) Hyperlipidemia Current Visit: Yes Status: Chronic Assessment and plan: May 23. Continue Lipitor Qualifiers: Hyperlipidemia type: unspecified Qualified Code(s): E78.5 - Hyperlipidemia, unspecified (4) HTN (hypertension) Current Visit: No Status: Chronic Assessment and plan: May 23. Continue lisinopril and Lasix May 24. She has borderline hypotension. Lasix and lisinopril will be held. May 28. Blood pressure and renal indices have improved. Remain off lisinopril and Lasix. Qualifiers: Hypertension type: essential hypertension Qualified Code(s): I10 - Essential (primary) hypertension (5) DM type 2 (diabetes mellitus, type 2) Current Visit: No Status: Chronic Assessment and plan: May 23. Hemoglobin A1c was 9.6% on 05/17/2019. Continue glyburide and Accu- Cheks with SSI. Qualifiers: Diabetes mellitus merchandise processor insulin use: with retirement use Diabetes mellitus complication status: without complication Qualified Code(s): E11.9 - Type 2 diabetes mellitus without complications; Z79.4 - concrete pavement installer (current) use of insulin (6) CAD (coronary artery disease) Current Visit: No Status: Acute Assessment and plan: May 23. Continue aspirin and Lipitor Qualifiers: Coronary Disease-Associated Artery/Lesion type: [place] artery [place] vs. transplanted heart: [place] heart Associated angina: without angina Qualified Code(s): I25.10 - Atherosclerotic heart disease of [place] coronary artery without angina pectoris (7) Acute renal failure Current Visit: Yes Status: Acute Assessment and plan: May 23. Likely due to vomiting with dehydration. IV fluids were started last evening. Labs will be monitored. Anti-emetics will be given as needed. May 28. Recheck labs in a.m. Qualifiers: Acute renal failure type: unspecified Qualified Code(s): N17.9 - Acute kidney failure, unspecified - Subjective Interval history: May 23. She has nausea and had 2 episodes of vomiting earlier. She denies significant pain. May 24. She still has nausea and vomiting but denies abdominal discomfort. She still has pain in her left foot May 28. She has no new complaints and feels significantly improved overall. She states her left lower leg pain has lessened. She has no further dyspnea, nausea, or abdominal discomfort. - Constitutional Vitals: Temp Pulse Resp BP Pulse Ox 97.7 F 82 18 135/62 93 05/28/19 07:18 05/28/19 07:18 05/28/19 11:37 05/28/19 07:18 05/28/19 11:37 Exam: She is resting comfortably in bed and appears in no acute distress. Her affect is bright and cheerful. Extremities show no edema. I reviewed her medications and lab results. Internal Medicine: Result - Labs CBC & Chem 7: 05/25/19 05:08 05/25/19 05:08 Consult Discharge Plan - Plan Referrals: Sonia Peoples, FUNERAL PROFESSIONAL [Primary Care Provider] - 1 week
[2019-05-29] MEDS: *HR* OxyCODONE/APAP 5/325 TABLET PO PRN ×4 (05:57→20:28)
[2019-05-29 07:33] LABS: Basophils # 0.1 K/mcL (0.0-0.2); Basophils % 0.7 %; Eosinophils # 0.3 K/mcL (0.0-0.6); Eosinophils % 3.7 %; Hematocrit 34.6 % (35.3-44.9); Hemoglobin 10.8 g/dL (11.5-15.4); Immature Granulocytes % 0.9 % (0-4); Lymphocytes # 1.9 K/mcL (0.6-4.6); Lymphocytes % 21.3 %; Mean Corpuscular HGB Conc 31.2 g/dL (31.6-35.5); Mean Corpuscular Hemoglobin 28.1 pg (28.0-33.3); Mean Corpuscular Volume 89.9 fL (83.0-100.0); Mean Platelet Volume 11.1 fL (9.4-12.4); Monocytes # 0.7 K/mcL (0.0-1.3); Neutrophils # 5.9 K/mcL (1.6-8.9); Platelet Count 293 K/mcL (140-400); Red Blood Count 3.85 M/mcL (3.82-4.97); Red Cell Distribution Width 13.7 % (11.5-14.5); Segmented Neutrophils % 65.4 %
[2019-05-29] MEDS: Ascorbic Acid 500 MG TABLET PO SCH ×2 (07:33→20:28)
[2019-05-29] MEDS: Gabapentin 300 MG CAPSULE PO SCH ×3 (07:34→20:28)
[2019-05-29] MEDS: Multivit/Ca/Min/Fe/FA 1 TAB TABLET PO SCH (07:34)
[2019-05-29] MEDS: *HR* GlyBURIDE 2.5 MG TABLET PO SCH (07:35)
[2019-05-29] MEDS: Cyanocobalamin (B-12) 1,000 MCG TABLET PO SCH (07:35)
[2019-05-29 07:53] LABS: BUN/Creatinine Ratio 32 (6-26); Blood Urea Nitrogen 25 mg/dL (8-23); Calcium 8.8 mg/dL (8.6-10.3); Carbon Dioxide 32 mEq/L (23-29); Chloride 100 mEq/L (98-107); Glucose 116 mg/dL (70-105); Magnesium 2.3 mg/dL (1.6-2.6); Osmolality,Calculated 291 (280-300); Potassium 4.9 mEq/L (3.5-5.1); Sodium 138 mEq/L (136-145); eGFR For African Americans > 60 (> 60); eGFR For Non-African Americans > 60 (> 60)
[2019-05-29] MEDS: BECLOMETHASONE DIP 40 MCG IH SCH (10:00)
[2019-05-29] MEDS: Fluticasone Propionate Nasal 50 MCG/SPRAY BOTTLE NS SCH ×2 (11:04→20:28)
[2019-05-29] MEDS: *HR* Rivaroxaban 10 MG TABLET PO SCH (16:29)
[2019-05-30] MEDS: *HR* OxyCODONE/APAP 5/325 TABLET PO PRN ×4 (01:37→18:52)
[2019-05-30] MEDS: Fluticasone Propionate Nasal 50 MCG/SPRAY BOTTLE NS SCH ×2 (08:36→19:44)
[2019-05-30] MEDS: Gabapentin 300 MG CAPSULE PO SCH ×3 (08:37→19:44)
[2019-05-30] MEDS: Cyanocobalamin (B-12) 1,000 MCG TABLET PO SCH (08:37)
[2019-05-30] MEDS: Multivit/Ca/Min/Fe/FA 1 TAB TABLET PO SCH (08:37)
[2019-05-30] MEDS: Ascorbic Acid 500 MG TABLET PO SCH ×2 (08:37→19:44)
[2019-05-30] MEDS: *HR* GlyBURIDE 2.5 MG TABLET PO SCH (08:45)
[2019-05-30] MEDS: BECLOMETHASONE DIP 40 MCG IH SCH (10:00)
[2019-05-30] MEDS: *HR* Rivaroxaban 10 MG TABLET PO SCH (16:39)
[2019-05-30] MEDS: *HR* FentaNYL PATCH 12 MCG PATCH TD SCH (16:39)
[2019-05-30] MEDS: MOM Conc 10 ML UD.LIQ PO SCH (16:40)
[2019-05-31] MEDS: *HR* OxyCODONE/APAP 5/325 TABLET PO PRN ×5 (03:40→20:21)
[2019-05-31] MEDS: *HR* GlyBURIDE 2.5 MG TABLET PO SCH (07:41)
[2019-05-31] MEDS: Multivit/Ca/Min/Fe/FA 1 TAB TABLET PO SCH (07:41)
[2019-05-31] MEDS: Cyanocobalamin (B-12) 1,000 MCG TABLET PO SCH (07:41)
[2019-05-31] MEDS: Ascorbic Acid 500 MG TABLET PO SCH ×2 (07:41→20:22)
[2019-05-31] MEDS: Gabapentin 300 MG CAPSULE PO SCH ×3 (07:42→20:22)
[2019-05-31] MEDS: Fluticasone Propionate Nasal 50 MCG/SPRAY BOTTLE NS SCH ×2 (07:44→20:24)
[2019-05-31] MEDS: BECLOMETHASONE DIP 40 MCG IH SCH (09:51)
--- NOTE | 2019-05-31 12:18 | Internal Med Progress Note ---
Date of Encounter: 05/31/19 Time of Encounter: 12:10 - Assessment and plan (1) Fracture of distal fibula Current Visit: No Status: Acute Assessment and plan: May 23. Status post ORIF 05/18/2019. Continue PT, OT, and Xarelto. Analgesics will be given as needed. Qualifiers: Encounter type: subsequent encounter Fracture type: closed Fracture morphology: unspecified fracture morphology Laterality: left Fracture healing: with routine healing Qualified Code(s): S82.832D - Other fracture of upper and lower end of left fibula, subsequent encounter for closed fracture with routine healing (2) Metatarsal fracture Current Visit: Yes Status: Acute Assessment and plan: May 23. As above Qualifiers: Encounter type: subsequent encounter Metatarsal bone: unspecified metatarsal Fracture type: closed Fracture alignment: nondisplaced Laterality: left Fracture healing: with routine healing Qualified Code(s): S92.302D - Fracture of unspecified metatarsal bone(s), left foot, subsequent encounter for fracture with routine healing (3) Hyperlipidemia Current Visit: Yes Status: Chronic Assessment and plan: May 23. Continue Lipitor Qualifiers: Hyperlipidemia type: unspecified Qualified Code(s): E78.5 - Hyperlipidemia, unspecified (4) HTN (hypertension) Current Visit: No Status: Chronic Assessment and plan: May 23. Continue lisinopril and Lasix May 24. She has borderline hypotension. Lasix and lisinopril will be held. May 28. Blood pressure and renal indices have improved. Remain off lisinopril and Lasix. Qualifiers: Hypertension type: essential hypertension Qualified Code(s): I10 - Essential (primary) hypertension (5) DM type 2 (diabetes mellitus, type 2) Current Visit: No Status: Chronic Assessment and plan: May 23. Hemoglobin A1c was 9.6% on 05/17/2019. Continue glyburide and Accu- Cheks with SSI. 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 Continue aspirin and Lipitor Qualifiers: Coronary Disease-Associated Artery/Lesion type: [place] artery [place] vs. transplanted heart: [place] heart Associated angina: without angina Qualified Code(s): I25.10 - Atherosclerotic heart disease of [place] coronary artery without angina pectoris (7) Acute renal failure Current Visit: Yes Status: Acute Assessment and plan: May 23. Likely due to vomiting with dehydration. IV fluids were started last evening. Labs will be monitored. Anti-emetics will be given as needed. May 28. Recheck labs in a.m. May 31. BUN and creatinine improved to 25 and 0.78 respectively on 05/29/2019 with estimated GFR> 60. Recheck in a.m. Qualifiers: Acute renal failure type: unspecified Qualified Code(s): N17.9 - Acute kidney failure, unspecified - Subjective Interval history: May 23. She has nausea and had 2 episodes of vomiting earlier. She denies significant pain. May 24. She still has nausea and vomiting but denies abdominal discomfort. She still has pain in her left foot May 28. She has no new complaints and feels significantly improved overall. She states her left lower leg pain has lessened. She has no further dyspnea, nausea, or abdominal discomfort. May. She has no new complaints and feels better overall. She reports she got a satisfactory report at her surgeon's office yesterday on follow-up visit. She shows me a picture on her phone of her foot. She reports she was told she will remain NWB for at least 10 more days. - Constitutional Vitals: Temp Pulse Resp BP Pulse Ox 97.8 F 84 18 110/70 93 05/31/19 07:22 05/31/19 07:22 05/31/19 07:22 05/31/19 07:22 05/31/19 07:22 Exam: She is sitting in a chair at bedside resting comfortably. She denies significant pain. Her affect is bright and cheerful. I reviewed her medications and lab results. Internal Medicine: Result - Labs CBC & Chem 7: 05/29/19 06:45 05/29/19 06:45 Consult Discharge Plan - Plan Referrals: Sonia Peoples, INJECTION MOLDING TECHNICIAN [Primary Care Provider] - 1 week
[2019-05-31] MEDS: *HR* Rivaroxaban 10 MG TABLET PO SCH (16:20)
[2019-05-31] MEDS: Lactobacillus 1 EACH CAP.SPRINK PO SCH (20:22)
[2019-05-31] MEDS: Loratadine 10 MG TABLET PO PRN (20:27)
[2019-06-01] MEDS: *HR* OxyCODONE/APAP 5/325 TABLET PO PRN ×4 (00:20→18:07)
[2019-06-01 05:59] LABS: Basophils % 0.5 %; Eosinophils # 0.3 K/mcL (0.0-0.6); Eosinophils % 4.3 %; Hematocrit 32.2 % (35.3-44.9); Hemoglobin 10.3 g/dL (11.5-15.4); Immature Granulocytes % 0.5 % (0-4); Lymphocytes # 1.8 K/mcL (0.6-4.6); Lymphocytes % 27.4 %; Mean Corpuscular Hemoglobin 28.6 pg (28.0-33.3); Mean Corpuscular Volume 89.4 fL (83.0-100.0); Mean Platelet Volume 11.1 fL (9.4-12.4); Monocytes # 0.5 K/mcL (0.0-1.3); Monocytes % 7.4 %; Neutrophils # 3.9 K/mcL (1.6-8.9); Platelet Count 291 K/mcL (140-400); Red Cell Distribution Width 13.5 % (11.5-14.5); Segmented Neutrophils % 59.9 %; White Blood Count 6.5 K/mcL (4.3-11.1)
[2019-06-01 06:22] LABS: BUN/Creatinine Ratio 30 (6-26); Blood Urea Nitrogen 23 mg/dL (8-23); Calcium 8.9 mg/dL (8.6-10.3); Carbon Dioxide 30 mEq/L (23-29); Chloride 102 mEq/L (98-107); Glucose 96 mg/dL (70-105); Osmolality,Calculated 294 (280-300); Potassium 4.4 mEq/L (3.5-5.1); Sodium 140 mEq/L (136-145); eGFR For African Americans > 60 (> 60); eGFR For Non-African Americans > 60 (> 60)
[2019-06-01] MEDS: Gabapentin 300 MG CAPSULE PO SCH ×3 (08:27→19:40)
[2019-06-01] MEDS: Multivit/Ca/Min/Fe/FA 1 TAB TABLET PO SCH (08:27)
[2019-06-01] MEDS: Cyanocobalamin (B-12) 1,000 MCG TABLET PO SCH (08:27)
[2019-06-01] MEDS: Lactobacillus 1 EACH CAP.SPRINK PO SCH ×2 (08:27→19:40)
[2019-06-01] MEDS: Ascorbic Acid 500 MG TABLET PO SCH ×2 (08:28→19:40)
[2019-06-01] MEDS: Fluticasone Propionate Nasal 50 MCG/SPRAY BOTTLE NS SCH ×2 (08:36→19:40)
[2019-06-01] MEDS: *HR* GlyBURIDE 2.5 MG TABLET PO SCH (08:37)
[2019-06-01] MEDS: BECLOMETHASONE DIP 40 MCG IH SCH (08:38)
[2019-06-01] MEDS: MOM Conc 10 ML UD.LIQ PO SCH (18:07)
[2019-06-01] MEDS: *HR* Rivaroxaban 10 MG TABLET PO SCH (18:07)
[2019-06-02] MEDS: *HR* OxyCODONE/APAP 5/325 TABLET PO PRN ×4 (02:01→20:24)
[2019-06-02] MEDS: Acetaminophen 325 MG TABLET PO PRN (03:51)
[2019-06-02] MEDS: Ascorbic Acid 500 MG TABLET PO SCH ×2 (09:27→20:23)
[2019-06-02] MEDS: Lactobacillus 1 EACH CAP.SPRINK PO SCH ×2 (09:27→20:23)
[2019-06-02] MEDS: Multivit/Ca/Min/Fe/FA 1 TAB TABLET PO SCH (09:27)
[2019-06-02] MEDS: Gabapentin 300 MG CAPSULE PO SCH ×3 (09:27→20:23)
[2019-06-02] MEDS: Cyanocobalamin (B-12) 1,000 MCG TABLET PO SCH (09:28)
[2019-06-02] MEDS: *HR* GlyBURIDE 2.5 MG TABLET PO SCH (09:31)
[2019-06-02] MEDS: Fluticasone Propionate Nasal 50 MCG/SPRAY BOTTLE NS SCH ×2 (09:32→20:27)
[2019-06-02] MEDS: BECLOMETHASONE DIP 40 MCG IH SCH (09:57)
[2019-06-02] MEDS: Albuterol 2.5 MG/3 ML NEBULIZER IH PRN (09:57)
[2019-06-02] MEDS: *HR* FentaNYL PATCH 12 MCG PATCH TD SCH (13:54)
--- NOTE | 2019-06-02 14:59 | Internal Med Progress Note ---
Date of Encounter: 06/02/19 Time of Encounter: 12:45 - Assessment and plan (1) Fracture of distal fibula Current Visit: No Status: Acute Assessment and plan: May 23. Status post ORIF 05/18/2019. Continue PT, OT, and Xarelto. Analgesics will be given as needed. June 02. Foot CT today showed no dislocation or abscess etc. Continue present Rx. Qualifiers: Encounter type: subsequent encounter Fracture type: closed Fracture morphology: unspecified fracture morphology Laterality: left Fracture heali ng: with routine healing Qualified Code(s): S82.832D - Other fracture of upper and lower end of left fibula, subsequent encounter for closed fracture with routine healing (2) Metatarsal fracture Current Visit: Yes Status: Acute Assessment and plan: May 23. As above Qualifiers: Encounter type: subsequent encounter Metatarsal bone: unspecified metatarsal Fracture type: closed Fracture alignment: nondisplaced Laterality: left Fracture healing: with routine healing Qualified Code(s): S92.302D - Fracture of unspecified metatarsal bone(s), left foot, subsequent encounter for fracture with routine healing (3) Hyperlipidemia Current Visit: Yes Status: Chronic Assessment and plan: May 23. Continue Lipitor Qualifiers: Hyperlipidemia type: unspecified Qualified Code(s): E78.5 - Hyperlipidemia, unspecified (4) HTN (hypertension) Current Visit: No Status: Chronic Assessment and plan: May 23. Continue lisinopril and Lasix May 24. She has borderline hypotension. Lasix and lisinopril will be held. May 28. Blood pressure and renal indices have improved. Remain off lisinopril and Lasix. Qualifiers: Hypertension type: essential hypertension Qualified Code(s): I10 - Essential (primary) hypertension (5) DM type 2 (diabetes mellitus, type 2) Current Visit: No Status: Chronic Assessment and plan: May 23. Hemoglobin A1c was 9.6% on 05/17/2019. Continue glyburide and Accu- Cheks with SSI. 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 Continue aspirin and Lipitor Qualifiers: Coronary Disease-Associated Artery/Lesion type: [place] artery [place] vs. transplanted heart: [place] heart Associated angina: without angina Qualified Code(s): I25.10 - Atherosclerotic heart disease of [place] coronary artery without angina pectoris (7) Acute renal failure Current Visit: Yes Status: Acute Assessment and plan: May 23. Likely due to vomiting with dehydration. IV fluids were started last evening. Labs will be monitored. Anti-emetics will be given as needed. May 28. Recheck labs in a.m. May 31. BUN and creatinine improved to 25 and 0.78 respectively on 05/29/2019 with estimated GFR> 60. Recheck in a.m. June 02. BUN and creatinine now normal at 23 and 0.76 respectively. Remain off Lasix and lisinopril. Qualifiers: Acute renal failure type: unspecified Qualified Code(s): N17.9 - Acute kidney failure, unspecified - Subjective Interval history: May 23. She has nausea and had 2 episodes of vomiting earlier. She denies significant pain. May 24. She still has nausea and vomiting but denies abdominal discomfort. She still has pain in her left foot May 28. She has no new complaints and feels significantly improved overall. She states her left lower leg pain has lessened. She has no further dyspnea, nausea, or abdominal discomfort. May 31. She has no new complaints and feels better overall. She reports she got a satisfactory report at her surgeon's office yesterday on follow-up visit. She shows me a picture on her phone of her foot. She reports she was told she will remain NWB for at least 10 more days. June 02. She complains of ongoing pain in her left foot. - Constitutional Vitals: Temp Pulse Resp BP Pulse Ox 97.7 F 78 20 123/78 98 06/01/19 18:37 06/01/19 18:37 06/02/19 09:57 06/01/19 18:37 06/02/19 09:57 Exam: She has significant ecchymosis involving most of the left foot. Thiago are in place closing surgical incision sites with an area of necrotic skin approximately 30-35 mm diameter on the medial portion of the more medial incision. I reviewed her medications and lab results. Internal Medicine: Result - Labs CBC & Chem 7: 06/01/19 05:09 06/01/19 05:09 - Impressions Impressions Foot CT 06/02/19 12:47 IMPRESSION: 1. Status post ORIF of the lateral malleolus, arthrodesis of the 1st tarsometatarsal articulation, and staple fixation of the 2nd through 4th proximal metatarsals with no evidence for hardware failure or loosening. No significant osseous bridging identified at the lateral malleolus or 1st tarsometatarsal articulation. Slightly indistinct appearance of the 1st through 4th metatarsal fractures likely reflecting at least some degree of healing. 2. No new fractures identified. 3. Soft tissue edema of the foot and ankle. Finding are nonspecific. Correlate clinically for cellulitis. No subcutaneous gas or well-defined organized fluid collection within limits of this noncontrast exam. D/ / Justin Loya MD / Justin Loya MD Interpreting Provider: Justin Loya MD Consult Discharge Plan - Plan Referrals: Sonia Peoples, PATIENT SUPPORT REPRESENTATIVE [Primary Care Provider] - 1 week
[2019-06-02] MEDS: *HR* Rivaroxaban 10 MG TABLET PO SCH (17:09)
[2019-06-02] MEDS: ALPRAZolam 1 MG TABLET PO PRN (20:23)
[2019-06-02] MEDS: Loratadine 10 MG TABLET PO PRN (20:23)
[2019-06-03] MEDS: *HR* OxyCODONE/APAP 5/325 TABLET PO PRN ×4 (06:09→21:21)
[2019-06-03] MEDS: Multivit/Ca/Min/Fe/FA 1 TAB TABLET PO SCH (08:52)
[2019-06-03] MEDS: Cyanocobalamin (B-12) 1,000 MCG TABLET PO SCH (08:53)
[2019-06-03] MEDS: Fluticasone Propionate Nasal 50 MCG/SPRAY BOTTLE NS SCH ×2 (08:53→21:24)
[2019-06-03] MEDS: Lactobacillus 1 EACH CAP.SPRINK PO SCH ×2 (08:53→21:21)
[2019-06-03] MEDS: Ascorbic Acid 500 MG TABLET PO SCH ×2 (08:53→21:22)
[2019-06-03] MEDS: Gabapentin 300 MG CAPSULE PO SCH ×3 (08:53→21:21)
[2019-06-03] MEDS: *HR* GlyBURIDE 2.5 MG TABLET PO SCH (08:56)
[2019-06-03] MEDS: BECLOMETHASONE DIP 40 MCG IH SCH (09:13)
[2019-06-03] MEDS: Acetaminophen 325 MG TABLET PO PRN (14:43)
[2019-06-03] MEDS: MOM Conc 10 ML UD.LIQ PO SCH (14:43)
[2019-06-03] MEDS: *HR* Rivaroxaban 10 MG TABLET PO SCH (17:29)
[2019-06-04] MEDS: *HR* OxyCODONE/APAP 5/325 TABLET PO PRN ×5 (02:38→21:40)
[2019-06-04] MEDS: Gabapentin 300 MG CAPSULE PO SCH ×3 (07:51→21:39)
[2019-06-04] MEDS: Cyanocobalamin (B-12) 1,000 MCG TABLET PO SCH (07:52)
[2019-06-04] MEDS: Multivit/Ca/Min/Fe/FA 1 TAB TABLET PO SCH (07:52)
[2019-06-04] MEDS: Ascorbic Acid 500 MG TABLET PO SCH ×2 (07:52→21:39)
[2019-06-04] MEDS: Lactobacillus 1 EACH CAP.SPRINK PO SCH ×2 (07:52→21:39)
[2019-06-04] MEDS: Fluticasone Propionate Nasal 50 MCG/SPRAY BOTTLE NS SCH ×2 (08:04→21:38)
[2019-06-04] MEDS: *HR* GlyBURIDE 2.5 MG TABLET PO SCH (08:05)
[2019-06-04] MEDS: BECLOMETHASONE DIP 40 MCG IH SCH (10:07)
[2019-06-04] MEDS ORDERED: ALPRAZolam 0.5 MG TABLET PO PRN (12:02)
[2019-06-04] MEDS ORDERED: Nicotine 21 MG PATCH.TD24 TD SCH (12:15)
[2019-06-04] MEDS: *HR* Rivaroxaban 10 MG TABLET PO SCH (16:07)
[2019-06-05] MEDS: *HR* OxyCODONE/APAP 5/325 TABLET PO PRN ×5 (01:33→21:58)
[2019-06-05] MEDS: Fluticasone Propionate Nasal 50 MCG/SPRAY BOTTLE NS SCH ×2 (08:18→22:00)
[2019-06-05] MEDS: Acetaminophen 325 MG TABLET PO PRN ×2 (08:20→17:00)
[2019-06-05] MEDS: Multivit/Ca/Min/Fe/FA 1 TAB TABLET PO SCH (08:20)
[2019-06-05] MEDS: Cyanocobalamin (B-12) 1,000 MCG TABLET PO SCH (08:20)
[2019-06-05] MEDS: Ascorbic Acid 500 MG TABLET PO SCH ×2 (08:20→21:59)
[2019-06-05] MEDS: Lactobacillus 1 EACH CAP.SPRINK PO SCH ×2 (08:20→21:58)
[2019-06-05] MEDS: Gabapentin 300 MG CAPSULE PO SCH ×3 (08:21→21:58)
[2019-06-05] MEDS: BECLOMETHASONE DIP 40 MCG IH SCH (08:24)
[2019-06-05] MEDS: *HR* GlyBURIDE 2.5 MG TABLET PO SCH (08:29)
[2019-06-05] MEDS: *HR* FentaNYL PATCH 12 MCG PATCH TD SCH (15:21)
[2019-06-05] MEDS: MOM Conc 10 ML UD.LIQ PO SCH (15:32)
[2019-06-05] MEDS: *HR* Rivaroxaban 10 MG TABLET PO SCH (17:01)
[2019-06-06] MEDS: *HR* OxyCODONE/APAP 5/325 TABLET PO PRN ×5 (07:00→23:43)
[2019-06-06] MEDS: Cyanocobalamin (B-12) 1,000 MCG TABLET PO SCH (08:18)
[2019-06-06] MEDS: Gabapentin 300 MG CAPSULE PO SCH ×3 (08:18→19:28)
[2019-06-06] MEDS: Multivit/Ca/Min/Fe/FA 1 TAB TABLET PO SCH (08:19)
[2019-06-06] MEDS: Lactobacillus 1 EACH CAP.SPRINK PO SCH ×2 (08:19→19:28)
[2019-06-06] MEDS: *HR* GlyBURIDE 2.5 MG TABLET PO SCH (08:19)
[2019-06-06] MEDS: Fluticasone Propionate Nasal 50 MCG/SPRAY BOTTLE NS SCH ×2 (08:19→19:29)
[2019-06-06] MEDS: Ascorbic Acid 500 MG TABLET PO SCH ×2 (08:19→19:28)
[2019-06-06] MEDS: BECLOMETHASONE DIP 40 MCG IH SCH (10:34)
[2019-06-06] MEDS: ALPRAZolam 1 MG TABLET PO PRN ×2 (11:05→19:27)
--- NOTE | 2019-06-06 12:40 | Internal Med Progress Note ---
Date of Encounter: 06/06/19 Time of Encounter: 12:25 - Assessment and plan (1) Fracture of distal fibula Current Visit: No Status: Acute Assessment and plan: May 23. Status post ORIF 05/18/2019. Continue PT, OT, and Xarelto. Analgesics will be given as needed. June 02. Foot CT today showed no dislocation or abscess etc. Continue present Rx. June 06. Rx as per design cell engineer/wound clinic. Necrotic tissue area appears to be increasing in size. Qualifiers: Encounter type: subsequent encounter Fracture type: closed Fracture morphology: unspecified fracture morphology Laterality: left Fracture hea ling: with routine healing Qualified Code(s): S82.832D - Other fracture of upper and lower end of left fibula, subsequent encounter for closed fracture with routine healing (2) Metatarsal fracture Current Visit: Yes Status: Acute Assessment and plan: May 23. As above Qualifiers: Encounter type: subsequent encounter Metatarsal bone: unspecified metatarsal Fracture type: closed Fracture alignment: nondisplaced Laterality: left Fracture healing: with routine healing Qualified Code(s): S92.302D - Fracture of unspecified metatarsal bone(s), left foot, subsequent encounter for fracture with routine healing (3) Hyperlipidemia Current Visit: Yes Status: Chronic Assessment and plan: May 23. Continue Lipitor Qualifiers: Hyperlipidemia type: unspecified Qualified Code(s): E78.5 - Hyperlipidemia, unspecified (4) HTN (hypertension) Current Visit: No Status: Chronic Assessment and plan: May 23. Continue lisinopril and Lasix May 24. She has borderline hypotension. Lasix and lisinopril will be held. May 28. Blood pressure and renal indices have improved. Remain off lisinopril and Lasix. Qualifiers: Hypertension type: essential hypertension Qualified Code(s): I10 - Essential (primary) hypertension (5) DM type 2 (diabetes mellitus, type 2) Current Visit: No Status: Chronic Assessment and plan: May 23. Hemoglobin A1c was 9.6% on 05/17/2019. Continue glyburide and Accu- Cheks with SSI. Qualifiers: Diabetes mellitus manager long term care insulin use: with manager long term care use Diabetes mellitus complication status: without complication Qualified Code(s): E11.9 - Type 2 diabetes mellitus without complications; Z79.4 - long-term (current) use of insulin (6) CAD (coronary artery disease) Current Visit: No Status: Acute Assessment and plan: May 23. Continue aspirin and Lipitor Qualifiers: Coronary Disease-Associated Artery/Lesion type: [place] artery [place] vs. transplanted heart: [place] heart Associated angina: without angina Qualified Code(s): I25.10 - Atherosclerotic heart disease of [place] coronary artery without angina pectoris (7) Acute renal failure Current Visit: Yes Status: Acute Assessment and plan: May 23. Likely due to vomiting with dehydration. IV fluids were started last evening. Labs will be monitored. Anti-emetics will be given as needed. May 28. Recheck labs in a.m. May 31. BUN and creatinine improved to 25 and 0.78 respectively on 05/29/2019 with estimated GFR> 60. Recheck in a.m. June 02. BUN and creatinine now normal at 23 and 0.76 respectively. Remain off Lasix and lisinopril. Qualifiers: Acute renal failure type: unspecified Qualified Code(s): N17.9 - Acute kidney failure, unspecified - Subjective Interval history: May 23. She has nausea and had 2 episodes of vomiting earlier. She denies significant pain. May 24. She still has nausea and vomiting but denies abdominal discomfort. She still has pain in her left foot May 28. She has no new complaints and feels significantly improved overall. She states her left lower leg pain has lessened. She has no further dyspnea, nausea, or abdominal discomfort. May 31. She has no new complaints and feels better overall. She reports she got a satisfactory report at her surgeon's office yesterday on follow-up visit. She shows me a picture on her phone of her foot. She reports she was told she will remain NWB for at least 10 more days. June 02. She complains of ongoing pain in her left foot. June 06. She has no new complaints. She saw the design cell engineer yesterday for follow-up from her fracture/surgery. He reported he had concerns the foot was not healing as well as expected. She showed me a photograph taken at the visit and it appears there is increased necrotic tissue on the forefoot compared to my examination 06/02/2019. - Constitutional Vitals: Temp Pulse Resp BP Pulse Ox 97.9 F 91 16 100/62 90 06/06/19 07:06 06/06/19 07:06 06/06/19 07:06 06/06/19 07:06 06/06/19 07:06 Exam: She is resting comfortably in bed and appears in no severe distress. The left foot is fully wrapped in gauze. I did not unwrap it. I reviewed her medications and lab results. Internal Medicine: Result - Labs CBC & Chem 7: 06/01/19 05:09 06/01/19 05:09 Consult Discharge Plan - Plan Referrals: Sonia Peoples, KNOCK UP ASSEMBLER [Primary Care Provider] - 1 week
[2019-06-06] MEDS: *HR* Rivaroxaban 10 MG TABLET PO SCH (17:30)
[2019-06-06] MEDS: Ondansetron ODT 4 MG TAB.RAPDIS SL PRN (19:33)
[2019-06-07] MEDS: *HR* OxyCODONE/APAP 5/325 TABLET PO PRN ×4 (06:21→20:02)
[2019-06-07] MEDS: Ondansetron ODT 4 MG TAB.RAPDIS SL PRN ×2 (08:41→14:39)
[2019-06-07] MEDS: BECLOMETHASONE DIP 40 MCG IH SCH (09:20)
[2019-06-07] MEDS: Ascorbic Acid 500 MG TABLET PO SCH ×2 (09:48→20:02)
[2019-06-07] MEDS: Cyanocobalamin (B-12) 1,000 MCG TABLET PO SCH (09:48)
[2019-06-07] MEDS: Gabapentin 300 MG CAPSULE PO SCH ×3 (09:48→20:02)
[2019-06-07] MEDS: Multivit/Ca/Min/Fe/FA 1 TAB TABLET PO SCH (09:48)
[2019-06-07] MEDS: Lactobacillus 1 EACH CAP.SPRINK PO SCH ×2 (09:48→20:02)
[2019-06-07] MEDS: Fluticasone Propionate Nasal 50 MCG/SPRAY BOTTLE NS SCH ×2 (09:49→20:03)
[2019-06-07] MEDS: *HR* GlyBURIDE 2.5 MG TABLET PO SCH (09:55)
--- NOTE | 2019-06-07 11:43 | Internal Med Progress Note ---
Date of Encounter: 06/07/19 Time of Encounter: 11:35 - Assessment and plan (1) Fracture of distal fibula Current Visit: No Status: Acute Assessment and plan: May 23. Status post ORIF 05/18/2019. Continue PT, OT, and Xarelto. Analgesics will be given as needed. June 02. Foot CT today showed no dislocation or abscess etc. Continue present Rx. June 06. Rx as per psychotherapist social worker/wound clinic. Necrotic tissue area appears to be increasing in size. Qualifiers: Encounter type: subsequent encounter Fracture type: closed Fracture morphology: unspecified fracture morphology Laterality: left Fracture hea ling: with routine healing Qualified Code(s): S82.832D - Other fracture of upper and lower end of left fibula, subsequent encounter for closed fracture with routine healing (2) Metatarsal fracture Current Visit: Yes Status: Acute Assessment and plan: May 23. As above Qualifiers: Encounter type: subsequent encounter Metatarsal bone: unspecified metatarsal Fracture type: closed Fracture alignment: nondisplaced Laterality: left Fracture healing: with routine healing Qualified Code(s): S92.302D - Fracture of unspecified metatarsal bone(s), left foot, subsequent encounter for fracture with routine healing (3) Hyperlipidemia Current Visit: Yes Status: Chronic Assessment and plan: May 23. Continue Lipitor Qualifiers: Hyperlipidemia type: unspecified Qualified Code(s): E78.5 - Hyperlipidemia, unspecified (4) HTN (hypertension) Current Visit: No Status: Chronic Assessment and plan: May 23. Continue lisinopril and Lasix May 24. She has borderline hypotension. Lasix and lisinopril will be held. May 28. Blood pressure and renal indices have improved. Remain off lisinopril and Lasix. Qualifiers: Hypertension type: essential hypertension Qualified Code(s): I10 - Essential (primary) hypertension (5) DM type 2 (diabetes mellitus, type 2) Current Visit: No Status: Chronic Assessment and plan: May 23. Hemoglobin A1c was 9.6% on 05/17/2019. Continue glyburide and Accu- Cheks with SSI. Qualifiers: Diabetes mellitus long term care administrator insulin use: with long term care administrator use Diabetes mellitus complication status: without complication Qualified Code(s): E11.9 - Type 2 diabetes mellitus without complications; Z79.4 - assisted (current) use of insulin (6) CAD (coronary artery disease) Current Visit: No Status: Acute Assessment and plan: May 23. Continue aspirin and Lipitor Qualifiers: Coronary Disease-Associated Artery/Lesion type: [place] artery [place] vs. transplanted heart: [place] heart Associated angina: without angina Qualified Code(s): I25.10 - Atherosclerotic heart disease of [place] coronary artery without angina pectoris (7) Acute renal failure Current Visit: Yes Status: Acute Assessment and plan: May 23. Likely due to vomiting with dehydration. IV fluids were started last evening. Labs will be monitored. Anti-emetics will be given as needed. May 28. Recheck labs in a.m. May 31. BUN and creatinine improved to 25 and 0.78 respectively on 05/29/2019 with estimated GFR> 60. Recheck in a.m. June 02. BUN and creatinine now normal at 23 and 0.76 respectively. Remain off Lasix and lisinopril. June 07. Recheck labs in a.m. Qualifiers: Acute renal failure type: unspecified Qualified Code(s): N17.9 - Acute kidney failure, unspecified - Subjective Interval history: May 23. She has nausea and had 2 episodes of vomiting earlier. She denies significant pain. May 24. She still has nausea and vomiting but denies abdominal discomfort. Fredy nur still has pain in her left foot May 28. She has no new complaints and feels significantly improved overall. She states her left lower leg pain has lessened. She has no further dyspnea, nausea, or abdominal discomfort. May 31. She has no new complaints and feels better overall. She reports she got a satisfactory report at her surgeon's office yesterday on follow-up visit. She shows me a picture on her phone of her foot. She reports she was told she will remain NWB for at least 10 more days. June 02. She complains of ongoing pain in her left foot. June 06. She has no new complaints. She saw the psychotherapist social worker yesterday for follow-up from her fracture/surgery. He reported he had concerns the foot was not healing as well as expected. She showed me a photograph taken at the visit and it appears there is increased necrotic tissue on the forefoot compared to my examination 06/02/2019. June 07. She complains of nausea onset earlier today. - Constitutional Vitals: Temp Pulse Resp BP Pulse Ox 97.6 F 53 16 115/51 93 06/07/19 06:56 06/07/19 06:56 06/07/19 06:56 06/07/19 06:56 06/07/19 06:56 Exam: Her right foot now has robert removed. A single suture is in the distal end of the more lateral incision. The necrotic tissue around the medial portion of the medial incision appears minimally changed. There is no tenderness to light palpation. She has sloughing of the skin from ruptured bullae on the distal dorsal foot at the base of the third and fourth toes. She has a ~4 cm black hardened area on her left heel. I reviewed her medications and lab results. Internal Medicine: Result - Labs CBC & Chem 7: 06/01/19 05:09 06/01/19 05:09 Consult Discharge Plan - Plan Referrals: Sonia Peoples, MANGA ARTIST [Primary Care Provider] - 1 week
[2019-06-07] MEDS: Acetaminophen 325 MG TABLET PO PRN ×2 (11:52→17:47)
[2019-06-07] MEDS: MOM Conc 10 ML UD.LIQ PO SCH (14:39)
[2019-06-07] MEDS: *HR* Rivaroxaban 10 MG TABLET PO SCH (17:44)
[2019-06-07] MEDS: ALPRAZolam 1 MG TABLET PO PRN (20:03)
[2019-06-08] MEDS: *HR* OxyCODONE/APAP 5/325 TABLET PO PRN ×2 (00:56→06:04)
[2019-06-08] MEDS: Acetaminophen 325 MG TABLET PO PRN ×2 (04:16→20:14)
[2019-06-08 06:56] LABS: Basophils # 0.1 K/mcL (0.0-0.2); Eosinophils # 0.4 K/mcL (0.0-0.6); Eosinophils % 5.3 %; Hematocrit 32.4 % (35.3-44.9); Hemoglobin 10.3 g/dL (11.5-15.4); Immature Granulocytes % 0.4 % (0-4); Lymphocytes # 2.6 K/mcL (0.6-4.6); Lymphocytes % 30.9 %; Mean Corpuscular HGB Conc 31.8 g/dL (31.6-35.5); Mean Corpuscular Hemoglobin 28.5 pg (28.0-33.3); Mean Corpuscular Volume 89.8 fL (83.0-100.0); Mean Platelet Volume 11.5 fL (9.4-12.4); Monocytes # 0.6 K/mcL (0.0-1.3); Monocytes % 7.7 %; Neutrophils # 4.6 K/mcL (1.6-8.9); Platelet Count 306 K/mcL (140-400); Red Blood Count 3.61 M/mcL (3.82-4.97); Red Cell Distribution Width 13.8 % (11.5-14.5); Segmented Neutrophils % 54.7 %; White Blood Count 8.4 K/mcL (4.3-11.1)
[2019-06-08 07:11] LABS: Alanine Aminotransferase 11 Units/L (7-52); Albumin 3.4 g/dL (3.5-5.7); Albumin/Globulin Ratio 1.1 (1.1-2.2); Alkaline Phosphatase 62 Units/L (34-104); Aspartate Amino Transferase 15 Units/L (13-39); BUN/Creatinine Ratio 30 (6-26); Bilirubin,Total 0.3 mg/dL (0.3-1.0); Blood Urea Nitrogen 25 mg/dL (8-23); Calcium 8.8 mg/dL (8.6-10.3); Carbon Dioxide 31 mEq/L (23-29); Chloride 102 mEq/L (98-107); Glucose 104 mg/dL (70-105); Osmolality,Calculated 295 (280-300); Potassium 4.3 mEq/L (3.5-5.1); Sodium 140 mEq/L (136-145); Total Protein 6.4 g/dL (6.4-8.9); eGFR For African Americans > 60 (> 60); eGFR For Non-African Americans > 60 (> 60)
[2019-06-08] MEDS: BECLOMETHASONE DIP 40 MCG IH SCH (09:12)
[2019-06-08] MEDS: Ondansetron ODT 4 MG TAB.RAPDIS SL PRN (09:24)
--- NOTE | 2019-06-08 11:15 | Internal Med Progress Note ---
Date of Encounter: 06/08/19 Time of Encounter: 11:05 - Assessment and plan (1) Fracture of distal fibula Current Visit: No Status: Acute Assessment and plan: May 23. Status post ORIF 05/18/2019. Continue PT, OT, and Xarelto. Analgesics will be given as needed. June 02. Foot CT today showed no dislocation or abscess etc. Continue present Rx. June 06. Rx as per laboratory specialist/wound clinic. Necrotic tissue area appears to be increasing in size. June 08. Insurance denied additional stay. She will be discharged tomorrow with home health services. She states she is going to her niece's home in [place]. Qualifiers: Encounter type: subsequent encounter Fracture type: closed Fracture morphology: unspecified fracture morphology Laterality: left Fracture healing: with routine healing Qualified Code(s): S82.832D - Other fracture of upper and lower end of left fibula, subsequent encounter for closed fracture with routine healing (2) Metatarsal fracture Current Visit: Yes Status: Acute Assessment and plan: May 23. As above Qualifiers: Encounter type: subsequent encounter Metatarsal bone: unspecified metatarsal Fracture type: closed Fracture alignment: nondisplaced Laterality: left Fracture healing: with routine healing Qualified Code(s): S92.302D - Fracture of unspecified metatarsal bone(s), left foot, subsequent encounter for fracture with routine healing (3) Hyperlipidemia Current Visit: Yes Status: Chronic Assessment and plan: May 23. Continue Lipitor Qualifiers: Hyperlipidemia type: unspecified Qualified Code(s): E78.5 - Hyperlipidemia, unspecified (4) HTN (hypertension) Current Visit: No Status: Chronic Assessment and plan: May 23. Continue lisinopril and Lasix May 24. She has borderline hypotension. Lasix and lisinopril will be held. May 28. Blood pressure and renal indices have improved. Remain off lisinopril and Lasix. Qualifiers: Hypertension type: essential hypertension Qualified Code(s): I10 - Essential (primary) hypertension (5) DM type 2 (diabetes mellitus, type 2) Current Visit: No Status: Chronic Assessment and plan: May 23. Hemoglobin A1c was 9.6% on 05/17/2019. Continue glyburide and Accu- Cheks with SSI. June 08. Accu-Cheks acceptable. Continue present Rx. Qualifiers: Diabetes mellitus penitentiary insulin use: with penitentiary use Diabetes mellitus complication status: without complication Qualified Code(s): E11.9 - Type 2 diabetes mellitus without complications; Z79.4 - halfway (current) use of insulin (6) CAD (coronary artery disease) Current Visit: No Status: Acute Assessment and plan: May 23. Continue aspirin and Lipitor Qualifiers: Coronary Disease-Associated Artery/Lesion type: cheesh-na artery [place] vs. transplanted heart: cheesh-na heart Associated angina: without angina Qualified Code(s): I25.10 - Atherosclerotic heart disease of cheesh-na coronary artery without angina pectoris (7) Acute renal failure Current Visit: Yes Status: Acute Assessment and plan: May 23. Likely due to vomiting with dehydration. IV fluids were started last evening. Labs will be monitored. Anti-emetics will be given as needed. May 28. Recheck labs in a.m. May 31. BUN and creatinine improved to 25 and 0.78 respectively on 05/29/2019 with estimated GFR> 60. Recheck in a.m. June 02. BUN and creatinine now normal at 23 and 0.76 respectively. Remain off Lasix and lisinopril. June 07. Recheck labs in a.m. June 08. Creatinine remains normal at 0.84. Estimated GFR is> 60. Continue present Rx. Qualifiers: Acute renal failure type: unspecified Qualified Code(s): N17.9 - Acute kidney failure, unspecified - Subjective Interval history: May 23. She has nausea and had 2 episodes of vomiting earlier. She denies significant pain. May 24. She still has nausea and vomiting but denies abdominal discomfort. She still has pain in her left foot May 28. She has no new complaints and feels significantly improved overall. She states her left lower leg pain has lessened. She has no further dyspnea, nausea, or abdominal discomfort. May 31. She has no new complaints and feels better overall. She reports she got a satisfactory report at her surgeon's office yesterday on follow-up visit. She shows me a picture on her phone of her foot. She reports she was told she will remain [facility]B for at least 10 more days. June 02. She complains of ongoing pain in her left foot. June 06. She has no new complaints. She saw the laboratory specialist yesterday for follow-up from her fracture/surgery. He reported he had concerns the foot was not healing as well as expected. She showed me a photograph taken at the visit and it appears there is increased necrotic tissue on the forefoot compared to my examination 06/02/2019. June 07. She complains of nausea onset earlier today. June 08. She complains of ongoing intermittent nausea with vomiting. She denies abdominal pain. She had a fall this morning while attempting to get off the toilet without assistance. Head CT showed no new abnormality. - Constitutional Vitals: Temp Pulse Resp BP Pulse Ox 98.4 F 77 18 109/60 91 06/08/19 11:03 06/08/19 11:03 06/08/19 11:03 06/08/19 11:03 06/08/19 11:03 Exam: She is resting comfortably in bed and appears in no acute distress. Her affect is cheerful. Abdomen is soft and nontender. Bowel sounds are slightly decreased. No masses or guarding are noted. Heart is regular without murmurs gallops or ectopics. Lungs are clear anteriorly. I reviewed her medications and lab results. Internal Medicine: Result - Labs CBC & Chem 7: 06/08/19 06:12 06/08/19 06:12 Labs: Short CBC 06/08/19 Range/Units 06:12 WBC 8.4 (4.3-11.1) K/mcL Hgb 10.3 L (11.5-15.4) g/dL Hct 32.4 L (35.3-44.9) % Plt Count 306 (140-400) K/mcL Neutrophils # 4.6 (1.6-8.9) K/mcL BMP 06/08/19 06:12 Sodium 140 Potassium 4.3 Chloride 102 Carbon Dioxide 31 H BUN 25 H Creatinine 0.84 Glucose 104 Calcium 8.8 Liver Function 06/08/19 Range/Units 06:12 Total Bilirubin 0.3 (0.3-1.0) mg/dL AST 15 (13-39) Units/L ALT 11 (7-52) Units/L Alkaline Phosphatase 62 (34-104) Units/L Albumin 3.4 L (3.5-5.7) g/dL - Impressions Impressions Head CT 06/08/19 09:00 IMPRESSION: No acute intracranial hemorrhage or mass effect. D/ / Nhan Nielsen MD / Nhan Nielsen MD Interpreting Provider: Nhan Nielsen MD Consult Discharge Plan - Plan Referrals: Sonia Peoples, JAMIE [Primary Care Provider] - 1 week
[2019-06-08] MEDS: Lactobacillus 1 EACH CAP.SPRINK PO SCH (11:17)
[2019-06-08] MEDS: Gabapentin 300 MG CAPSULE PO SCH ×3 (11:17→20:13)
[2019-06-08] MEDS: Cyanocobalamin (B-12) 1,000 MCG TABLET PO SCH (11:17)
[2019-06-08] MEDS: Ascorbic Acid 500 MG TABLET PO SCH (11:18)
[2019-06-08] MEDS: Multivit/Ca/Min/Fe/FA 1 TAB TABLET PO SCH (11:18)
[2019-06-08] MEDS: *HR* GlyBURIDE 2.5 MG TABLET PO SCH (11:22)
[2019-06-08] MEDS: Fluticasone Propionate Nasal 50 MCG/SPRAY BOTTLE NS SCH ×2 (11:22→20:14)
[2019-06-08] MEDS: *HR* Rivaroxaban 10 MG TABLET PO SCH (16:42)
[2019-06-08] MEDS: ALPRAZolam 1 MG TABLET PO PRN (20:14)
[2019-06-09] MEDS: *HR* OxyCODONE/APAP 5/325 TABLET PO PRN ×2 (03:46→09:14)
[2019-06-09 06:34] VITALS: BP 110/64
--- NOTE | 2019-06-09 09:03 | Discharge Summary ---
Orders not resulted at time of discharge: Pending orders 06/02/19 13:44 CT 3D reconstruction [CT] Routine 06/08/19 06:12 Zinc AM 0400 Date of Encounter: 06/09/19 Time of Encounter: 08:50 - Discharge Diagnosis (1) Fracture of distal fibula Priority: Primary Status: Acute Qualifiers: Encounter type: subsequent encounter Fracture type: closed Fracture morphology: unspecified fracture morphology Laterality: left Fracture healing: with routine healing Qualified Code(s): S82.832D - Other fracture of upper and lower end of left fibula, subsequent encounter for closed fracture with routine healing (2) Metatarsal fracture Priority: Secondary Status: Acute Qualifiers: Encounter type: subsequent encounter Metatarsal bone: unspecified metatarsal Fracture type: closed Fracture alignment: nondisplaced Laterality: left Fracture healing: with routine healing Qualified Code(s): S92.302D - Fracture of unspecified metatarsal bone(s), left foot, subsequent encounter for fracture with routine healing (3) Hyperlipidemia Priority: Secondary Status: Chronic Qualifiers: Hyperlipidemia type: unspecified Qualified Code(s): E78.5 - Hyperlipidemia, unspecified (4) HTN (hypertension) Priority: Secondary Status: Chronic Qualifiers: Hypertension type: essential hypertension Qualified Code(s): I10 - Essential (primary) hypertension (5) DM type 2 (diabetes mellitus, type 2) Priority: Secondary Status: Chronic Qualifiers: Diabetes mellitus termite treater helper insulin use: with termite treater helper use Diabetes mellitus complication status: without complication Qualified Code(s): E11.9 - Type 2 diabetes mellitus without complications; Z79.4 - emt intermediate (current) use of insulin (6) CAD (coronary artery disease) Priority: Secondary Status: Acute Qualifiers: Coronary Disease-Associated Artery/Lesion type: [place] artery [place] vs. transplanted heart: [place] heart Associated angina: without angina Qualified Code(s): I25.10 - Atherosclerotic heart disease of [place] coronary artery without angina pectoris (7) Acute renal failure Priority: Secondary Status: Resolved Qualifiers: Acute renal failure type: unspecified Qualified Code(s): N17.9 - Acute kidney failure, unspecified Hospital course: Ms. Laird is a 69 year old female who was hospitalized at [facility] May 17 after experiencing a fall at home sustaining a left fibular fracture and left 1- 4 metatarsal fractures. She underwent ORIF surgery 05/18/2018 with plate and screw repairs. She was discharged to [facility] swing bed rehabilitation therapy prior to returning to independent living at home. Initial orders were written by the discharging physicians at [facility]. I saw her on May 22 and performed a swing bed history and physical. She had physical therapy and occupational therapy evaluation with ongoing intervention. Scheduled and prn analgesics were given. Xarelto was ordered for DVT prophylaxis. She made satisfactory progress in therapy. She had a follow-up visit with oven attendant on May 30. She complained of significant ongoing foot pain so foot CT was done June 02 but showed no dislocation or abscess. She had daily dressing changes to the foot. On June 09 arrangements were complete for her to be discharged to her niece's home. She will continue with daily dressings by home health providers and follow with oven attendant as directed. She had periodic episodes of nausea and vomiting. This had lessened by day of discharge. She will be given omeprazole for prn use. Lasix and lisinopril were held because of borderline hypotension and renal insufficiency. Her blood pressure normalized and BUN and creatinine improved to 25 and 0.84 respectively by day prior to discharge with estimated GFR> 60. She will remain off these medications at discharge. Vitamin D level returned low at 16. She will be given a prescription for vitamin D supplementation. She will follow with her PCP Sonia Peoples CNP within 1 week. - Time Spent with Patient Total time spent providing and/or coordinating discharge services: - Discharge Medications Prescriptions: New OxyCODONE/APAP 5/325 [Percocet 5/325 MG] 1 each PO Q4HR PRN 7 Days #42 tablet PRN Reason: Pain Omeprazole [PriLOSEC] 20 mg PO DAILY capsule. Rivaroxaban [Xarelto] 10 mg PO 1700 #30 tablet Cholecalciferol (D-3) [Vitamin D] 1,000 unit PO DAILY #30 tablet Ondansetron ODT [Zofran ODT] 4 mg SL Q4HR PRN #12 tab.rapdis PRN Reason: Nausea And Vomiting Continued Alprazolam [Xanax] 2 mg PO TID PRN PRN Reason: Anxiety Aspirin [Adult Aspirin Regimen] 81 mg PO DAILY Cyanocobalamin (Vitamin B-12) [Vitamin B-12] 1,000 mcg PO BID Fluticasone Propionate Nasal [Flonase] 2 spray NS BID glyBURIDE [GlyBURIDE] 1.25 mg PO QAM Zolpidem [Ambien] 10 mg PO HS PRN PRN Reason: Sleep Gabapentin [Neurontin] 600 mg PO HS Gabapentin [Neurontin] 300 mg PO QPM Albuterol Sulfate [Proventil Inhaler] 2 puff IH Q4-6H PRN PRN Reason: Shortness Of Breath Albuterol Neb [Proventil Neb] 2.5 mg IH Q6HR PRN PRN Reason: Wheezing Mv W-Ca/Iron/FA/Lutein/Hrb#179 [Bg Multivit For Women Caplet] 1 tab PO DAILY Nitroglycerin [Nitrostat] 0.4 mg SL Q5M PRN PRN Reason: Chest Pain Cyclobenzaprine [Flexeril] 10 mg PO TID PRN PRN Reason: Muscle Spasm Ferrous Sulfate 325 mg PO DAILY Ascorbic Acid [Vitamin C] 500 mg PO BID Beclomethasone Dip 40mcg REDIH [Qvar 40 Mcg Redihaler] 2 puff IH DAILY Potassium Chloride [K-Tab ER] 20 meq PO DAILY Loratadine [Allergy Relief] 10 mg PO DAILY PRN PRN Reason: Allergy Symptoms Atorvastatin Calcium [Lipitor] 20 mg PO DAILY Gabapentin [Neurontin] 300 mg PO QAM Discontinued Lisinopril 2.5 mg PO DAILY Naproxen [Naprosyn] 500 mg PO Q12H PRN PRN Reason: Pain Omeprazole [PriLOSEC] 40 mg PO BID Furosemide [Lasix] 80 mg PO DAILY Home Medications: Albuterol Neb [Proventil Neb] 2.5 mg IH Q6HR PRN 10/17/16 [History] Mv W-Ca/Iron/FA/Lutein/Hrb#179 [Bg Multivit For Women Caplet] 1 tab PO DAILY 10/17/16 [History] Nitroglycerin [Nitrostat] 0.4 mg SL Q5M PRN 12/25/17 [History] Cyclobenzaprine [Flexeril] 10 mg PO TID PRN 02/20/18 [History] Ascorbic Acid [Vitamin C] 500 mg PO BID 04/18/19 [History] Atorvastatin Calcium [Lipitor] 20 mg PO DAILY 04/18/19 [History] Beclomethasone Dip 40mcg REDIH [Qvar 40 Mcg Redihaler] 2 puff IH DAILY 04/18/19 [History] Ferrous Sulfate 325 mg PO DAILY 04/18/19 [History] Loratadine [Allergy Relief] 10 mg PO DAILY PRN 04/18/19 [History] Potassium Chloride [K-Tab ER] 20 meq PO DAILY 04/18/19 [History] Gabapentin [Neurontin] 300 mg PO QAM 04/24/19 [History] Albuterol Sulfate [Proventil Inhaler] 2 puff IH Q4-6H PRN 05/18/19 [History] Alprazolam [Xanax] 2 mg PO TID PRN 05/18/19 [History] Aspirin [Adult Aspirin Regimen] 81 mg PO DAILY 05/18/19 [History] Cyanocobalamin (Vitamin B-12) [Vitamin B-12] 1,000 mcg PO BID 05/18/19 [History] Fluticasone Propionate Nasal [Flonase] 2 spray NS BID 05/18/19 [History] Gabapentin [Neurontin] 300 mg PO QPM 05/18/19 [History] Gabapentin [Neurontin] 600 mg PO HS 05/18/19 [History] Zolpidem [Ambien] 10 mg PO HS PRN 05/18/19 [History] glyBURIDE [GlyBURIDE] 1.25 mg PO QAM 05/18/19 [History] Cholecalciferol (D-3) [Vitamin D] 1,000 unit PO DAILY #30 tablet 06/09/19 [Rx] Omeprazole [PriLOSEC] 20 mg PO DAILY capsule. 06/09/19 [Rx] Ondansetron ODT [Zofran ODT] 4 mg SL Q4HR PRN #12 tab.rapdis 06/09/19 [Rx] OxyCODONE/APAP 5/325 [Percocet 5/325 MG] 1 each PO Q4HR PRN 7 Days #42 tablet 06/09/19 [Rx] Rivaroxaban [Xarelto] 10 mg PO 1700 #30 tablet 06/09/19 [Rx] Allergies/Adverse Reactions: Allergy/AdvReac Type Severity Reaction Status Date / Time No Known Allergies Allergy Verified 05/18/19 18:37 Date of admission: 05/21/19 21:53 Primary care physician: Sonia Peoples CNP Consults: 05/21/19 23:15 Consult to Occupational Therapy [CONS] Routine Comment: To evaluate, develop, and implement plan of care. Reason for Consult: To evaluate, develop, and implement plan of care. Does patient have active BEDREST order?: No Is patient medically & hemodynamically stable?: Yes Patient assessed for mobility or mobilized this visit?: Yes Consult to Physical Therapy [CONS] Routine Comment: To evaluate, develop, and implement plan of care. Reason for Consult: To evaluate, develop, and implement plan of care. Does patient have active BEDREST order?: No Is patient medically & hemodynamically stable?: Yes Patient assessed for mobility or mobilized this visit?: Yes Consult to Board Winder [CONS] Routine Reason for SW Consult: discharge planning - Constitutional Vitals: Temp Pulse Resp BP Pulse Ox 98.6 F 83 18 110/64 90 06/09/19 06:30 06/09/19 06:30 06/09/19 06:30 06/09/19 06:30 06/09/19 06:30 - Patient Status Disposition: Home Health Service - Discharge Instructions Follow Up With: Sonia Peoples, BIODIESEL PROCESSING TECHNICIAN [Primary Care Provider] - 1 week - Diet and Activity Activity: as per physical therapy Diet: diabetic diet
[2019-06-09] MEDS: Multivit/Ca/Min/Fe/FA 1 TAB TABLET PO SCH (09:14)
[2019-06-09] MEDS: Cyanocobalamin (B-12) 1,000 MCG TABLET PO SCH (09:14)
[2019-06-09] MEDS: Gabapentin 300 MG CAPSULE PO SCH (09:14)
--- NOTE | 2019-06-09 09:14 | Physician Discharge Referral ---
Home Health/Hosp Referral Info Transfer to: Home Health Attending Provider: Gm Provider in Charge Post Discharge: PCP (Sonia Peoples CNP) - Diagnosis (1) Fracture of distal fibula Priority: Primary Status: Acute (2) Metatarsal fracture Priority: Secondary Status: Acute (3) Hyperlipidemia Priority: Secondary Status: Chronic (4) HTN (hypertension) Priority: Secondary Status: Chronic (5) DM type 2 (diabetes mellitus, type 2) Priority: Secondary Status: Chronic (6) CAD (coronary artery disease) Priority: Secondary Status: Acute (7) Acute renal failure Priority: Secondary Status: Resolved - Respiratory Orders Smoking Cessation: Smoking cessation has been advised. For more information, call the [place] Tobacco Quit Line at 9-090-MIXP-NOW. - Dressing/Wound Care Type of Dressing/Treatments w/Frequency: Daily dressing changes to left foot. - Diet/Nutrition Diet/Nutrition Orders: No Concentrated Sweets - Activity Activity Orders: Walker - Services Needed Following services are medically necessary services: Nursing, Home Health Aide, Physical Therapy, Occupational Therapy - Transfer Medications Prescriptions: OxyCODONE/APAP 5/325 [Percocet 5/325 MG] 1 each PO Q4HR PRN 7 Days #42 tablet PRN Reason: Pain Cholecalciferol (D-3) [Vitamin D] 1,000 unit PO DAILY #30 tablet Rivaroxaban [Xarelto] 10 mg PO 1700 #30 tablet Ondansetron ODT [Zofran ODT] 4 mg SL Q4HR PRN #12 tab.rapdis PRN Reason: Nausea And Vomiting Home Medications: Albuterol Neb [Proventil Neb] 2.5 mg IH Q6HR PRN 10/17/16 [History] Mv W-Ca/Iron/FA/Lutein/Hrb#179 [Bg Multivit For Women Caplet] 1 tab PO DAILY 10/17/16 [History] Nitroglycerin [Nitrostat] 0.4 mg SL Q5M PRN 12/25/17 [History] Cyclobenzaprine [Flexeril] 10 mg PO TID PRN 02/20/18 [History] Ascorbic Acid [Vitamin C] 500 mg PO BID 04/18/19 [History] Atorvastatin Calcium [Lipitor] 20 mg PO DAILY 04/18/19 [History] Beclomethasone Dip 40mcg REDIH [Qvar 40 Mcg Redihaler] 2 puff IH DAILY 04/18/19 [History] Ferrous Sulfate 325 mg PO DAILY 04/18/19 [History] Loratadine [Allergy Relief] 10 mg PO DAILY PRN 04/18/19 [History] Potassium Chloride [K-Tab ER] 20 meq PO DAILY 04/18/19 [History] Gabapentin [Neurontin] 300 mg PO QAM 04/24/19 [History] Albuterol Sulfate [Proventil Inhaler] 2 puff IH Q4-6H PRN 05/18/19 [History] Alprazolam [Xanax] 2 mg PO TID PRN 05/18/19 [History] Aspirin [Adult Aspirin Regimen] 81 mg PO DAILY 05/18/19 [History] Cyanocobalamin (Vitamin B-12) [Vitamin B-12] 1,000 mcg PO BID 05/18/19 [History] Fluticasone Propionate Nasal [Flonase] 2 spray NS BID 05/18/19 [History] Gabapentin [Neurontin] 300 mg PO QPM 05/18/19 [History] Gabapentin [Neurontin] 600 mg PO HS 05/18/19 [History] Zolpidem [Ambien] 10 mg PO HS PRN 05/18/19 [History] glyBURIDE [GlyBURIDE] 1.25 mg PO QAM 05/18/19 [History] Cholecalciferol (D-3) [Vitamin D] 1,000 unit PO DAILY #30 tablet 06/09/19 [Rx] Omeprazole [PriLOSEC] 20 mg PO DAILY capsule. 06/09/19 [Rx] Ondansetron ODT [Zofran ODT] 4 mg SL Q4HR PRN #12 tab.rapdis 06/09/19 [Rx] OxyCODONE/APAP 5/325 [Percocet 5/325 MG] 1 each PO Q4HR PRN 7 Days #42 tablet 06/09/19 [Rx] Rivaroxaban [Xarelto] 10 mg PO 1700 #30 tablet 06/09/19 [Rx] Allergies/Adverse Reactions: Allergy/AdvReac Type Severity Reaction Status Date / Time No Known Allergies Allergy Verified 05/18/19 18:37 Certification: Further, I certify that my clinical findings support that this patient is homebound (i.e. absences from home require considerable and taxing effort and are for medical reasons or gnosticist services or infrequently or short duration when for other reasons) because: Homebound Reason: Leaving home requires considerable and taxing effort due to condition (Impaired ambulation secondary to multiple metatarsal fractures and fibula fracture) Attestation: My signature below is to certify that this patient is under my care and that I, or nurse practitioner, or a physician's district administrative assistant working with me, has a [id number] encounter with this patient.
[2019-06-09] MEDS: Fluticasone Propionate Nasal 50 MCG/SPRAY BOTTLE NS SCH (09:16)
[2019-06-09] MEDS: *HR* GlyBURIDE 2.5 MG TABLET PO SCH (09:24)
== END 2019-06-09 12:43 | disposition home health service (06) | DRG 560 ==
LOC: INPPIK 21:53
PROVIDERS: ADMIT Internal Medicine; ATTEND Internal Medicine

== ENCOUNTER 2019-08-03 12:56 | Inpatient (IN) ==
[2019-08-03] MEDS ORDERED: Ondansetron ODT 4 MG TAB.RAPDIS PO PRN (13:58)
[2019-08-03] MEDS ORDERED: Albuterol 2.5 MG/3 ML NEBULIZER IH PRN (13:58)
[2019-08-03] MEDS ORDERED: Nitroglycerin 0.4 MG TAB.SUBL SL PRN (13:58)
[2019-08-03] MEDS: *HR* HYDROcodone/Acet 7.5/325 mg TABLET PO SCH ×2 (14:55→20:27)
[2019-08-03] MEDS: metroNIDAZOLE 500 MG TABLET PO SCH ×2 (14:55→20:27)
[2019-08-03] MEDS: Metoprolol XL (24 HR) Succ 25 MG TAB.ER.24H PO SCH (16:19)
[2019-08-03] MEDS ORDERED: Ondansetron 4 MG/2 ML VIAL IVP PRN (19:29)
[2019-08-03] MEDS: Lactobacillus 1 EACH CAP.SPRINK PO SCH (20:27)
[2019-08-03] MEDS: Cyanocobalamin (B-12) 1,000 MCG TABLET PO SCH (20:27)
[2019-08-03] MEDS: Ascorbic Acid 500 MG TABLET PO SCH (20:28)
[2019-08-03] MEDS: Fluticasone Propionate Nasal 50 MCG/SPRAY BOTTLE NS SCH (20:28)
[2019-08-03] MEDS: ALPRAZolam 1 MG TABLET PO PRN (20:32)
[2019-08-04] MEDS: *HR* HYDROcodone/Acet 7.5/325 mg TABLET PO SCH ×4 (04:30→17:05)
[2019-08-04] MEDS ORDERED: CefTRIAXone 2,000 MG VIAL IVPB SCH (09:00)
[2019-08-04 09:21] LABS: % Iron Saturation 21 % (15-50); Iron 55 mcg/dL (50-170); Transferrin 189 mg/dL (203-362)
[2019-08-04 09:38] LABS: Ferritin 62 ng/mL (10-120)
[2019-08-04] MEDS: Lactobacillus 1 EACH CAP.SPRINK PO SCH ×2 (10:04→21:13)
[2019-08-04] MEDS: metroNIDAZOLE 500 MG TABLET PO SCH ×3 (10:05→21:13)
[2019-08-04] MEDS: Aspirin Enteric Coated 81 MG Tablet PO SCH (10:05)
[2019-08-04] MEDS: Multivit/Ca/Min/Fe/FA 1 TAB TABLET PO SCH (10:05)
[2019-08-04] MEDS: Cyanocobalamin (B-12) 1,000 MCG TABLET PO SCH ×2 (10:05→21:13)
[2019-08-04] MEDS: Cholecalciferol (D-3) 1,000 UNIT (25MCG) TABLET PO SCH (10:06)
[2019-08-04] MEDS: Metoprolol XL (24 HR) Succ 25 MG TAB.ER.24H PO SCH (10:06)
[2019-08-04] MEDS: cefTRIAXone 2,000 MG in Water for inj. (sterile) 20 ML IVP SCH (10:07)
[2019-08-04] MEDS: *HR* Metformin 500 MG TABLET PO SCH (10:08)
[2019-08-04] MEDS: Fluticasone Propionate Nasal 50 MCG/SPRAY BOTTLE NS SCH (10:08)
[2019-08-04] MEDS: Ascorbic Acid 500 MG TABLET PO SCH ×2 (10:10→17:01)
[2019-08-04 12:02] LABS: Folate > 22.3 ng/mL (3.0-16.0); Vitamin B12 > 1500 pg/mL (250-1100); Vitamin D 25 Hydroxy 12 ng/mL (30-80)
[2019-08-04] MEDS: ALPRAZolam 1 MG TABLET PO PRN (17:01)
[2019-08-05] MEDS: *HR* HYDROcodone/Acet 7.5/325 mg TABLET PO SCH ×4 (02:56→15:31)
[2019-08-05] MEDS: ALPRAZolam 1 MG TABLET PO PRN ×2 (02:56→21:59)
[2019-08-05] MEDS: Fluticasone Propionate Nasal 50 MCG/SPRAY BOTTLE NS SCH ×3 (02:57→21:56)
[2019-08-05] MEDS: metroNIDAZOLE 500 MG TABLET PO SCH ×3 (09:32→21:56)
[2019-08-05] MEDS: Metoprolol XL (24 HR) Succ 25 MG TAB.ER.24H PO SCH (09:32)
[2019-08-05] MEDS: *HR* Metformin 500 MG TABLET PO SCH (09:32)
[2019-08-05] MEDS: Cyanocobalamin (B-12) 1,000 MCG TABLET PO SCH ×2 (09:32→21:56)
[2019-08-05] MEDS: Aspirin Enteric Coated 81 MG Tablet PO SCH (09:32)
[2019-08-05] MEDS: Multivit/Ca/Min/Fe/FA 1 TAB TABLET PO SCH (09:32)
[2019-08-05] MEDS: cefTRIAXone 2,000 MG in Water for inj. (sterile) 20 ML IVP SCH (09:33)
[2019-08-05] MEDS: Lactobacillus 1 EACH CAP.SPRINK PO SCH ×2 (09:33→21:55)
[2019-08-05] MEDS: Ascorbic Acid 500 MG TABLET PO SCH ×2 (09:33→15:31)
[2019-08-05] MEDS: Cholecalciferol (D-3) 1,000 UNIT (25MCG) TABLET PO SCH (09:33)
[2019-08-05] MEDS: *HR* OxyCODONE/APAP 5/325 TABLET PO SCH (19:22)
[2019-08-06] MEDS: *HR* OxyCODONE/APAP 5/325 TABLET PO SCH ×2 (05:52)
[2019-08-06 06:44] LABS: Basophils % 0.5 %; Eosinophils # 0.3 K/mcL (0.0-0.6); Eosinophils % 3.2 %; Hematocrit 33.1 % (35.3-44.9); Hemoglobin 10.4 g/dL (11.5-15.4); Immature Granulocytes % 1.1 % (0-4); Lymphocytes # 2.3 K/mcL (0.6-4.6); Lymphocytes % 26.6 %; Mean Corpuscular HGB Conc 31.4 g/dL (31.6-35.5); Mean Corpuscular Hemoglobin 28.1 pg (28.0-33.3); Mean Corpuscular Volume 89.5 fL (83.0-100.0); Mean Platelet Volume 11.3 fL (9.4-12.4); Monocytes # 0.7 K/mcL (0.0-1.3); Monocytes % 8.1 %; Neutrophils # 5.3 K/mcL (1.6-8.9); Platelet Count 337 K/mcL (140-400); Red Cell Distribution Width 14.2 % (11.5-14.5); Segmented Neutrophils % 60.5 %; White Blood Count 8.7 K/mcL (4.3-11.1)
[2019-08-06 07:08] LABS: BUN/Creatinine Ratio 17 (6-26); Blood Urea Nitrogen 13 mg/dL (8-23); eGFR For African Americans > 60 (> 60); eGFR For Non-African Americans > 60 (> 60)
[2019-08-06 09:30] LABS: C-Reactive Protein 15 mg/L (Less than 10)
[2019-08-06] MEDS: *HR* FentaNYL PATCH 12 MCG PATCH TD SCH (09:55)
[2019-08-06] MEDS: ALPRAZolam 1 MG TABLET PO PRN (09:56)
[2019-08-06] MEDS: Metoprolol XL (24 HR) Succ 25 MG TAB.ER.24H PO SCH (09:56)
[2019-08-06] MEDS: Lactobacillus 1 EACH CAP.SPRINK PO SCH ×2 (09:56→19:54)
[2019-08-06] MEDS: cefTRIAXone 2,000 MG in Water for inj. (sterile) 20 ML IVP SCH (09:56)
[2019-08-06] MEDS: *HR* Metformin 500 MG TABLET PO SCH (09:57)
[2019-08-06] MEDS: Multivit/Ca/Min/Fe/FA 1 TAB TABLET PO SCH (09:57)
[2019-08-06] MEDS: Ascorbic Acid 500 MG TABLET PO SCH ×2 (09:57→16:23)
[2019-08-06] MEDS: metroNIDAZOLE 500 MG TABLET PO SCH ×3 (09:57→19:53)
[2019-08-06] MEDS: Cyanocobalamin (B-12) 1,000 MCG TABLET PO SCH ×2 (09:57→19:53)
[2019-08-06] MEDS: Aspirin Enteric Coated 81 MG Tablet PO SCH (09:57)
[2019-08-06] MEDS: *HR* OxyCODONE/APAP 5/325 TABLET PO PRN ×4 (10:07→23:57)
[2019-08-06] MEDS: Fluticasone Propionate Nasal 50 MCG/SPRAY BOTTLE NS SCH ×2 (10:08→19:53)
[2019-08-06] MEDS: Cholecalciferol (D-3) 1,000 UNIT (25MCG) TABLET PO SCH (10:08)
[2019-08-07] MEDS: *HR* OxyCODONE/APAP 5/325 TABLET PO PRN ×5 (05:23→21:56)
[2019-08-07] MEDS: Fluticasone Propionate Nasal 50 MCG/SPRAY BOTTLE NS SCH ×2 (09:26→21:38)
[2019-08-07] MEDS: ALPRAZolam 1 MG TABLET PO PRN ×2 (09:27→21:34)
[2019-08-07] MEDS: Multivit/Ca/Min/Fe/FA 1 TAB TABLET PO SCH (09:27)
[2019-08-07] MEDS: metroNIDAZOLE 500 MG TABLET PO SCH ×3 (09:27→21:34)
[2019-08-07] MEDS: Lactobacillus 1 EACH CAP.SPRINK PO SCH ×2 (09:27→21:34)
[2019-08-07] MEDS: Metoprolol XL (24 HR) Succ 25 MG TAB.ER.24H PO SCH (09:27)
[2019-08-07] MEDS: Aspirin Enteric Coated 81 MG Tablet PO SCH (09:27)
[2019-08-07] MEDS: Cholecalciferol (D-3) 1,000 UNIT (25MCG) TABLET PO SCH (09:27)
[2019-08-07] MEDS: Ascorbic Acid 500 MG TABLET PO SCH ×2 (09:27→17:54)
[2019-08-07] MEDS: *HR* Metformin 500 MG TABLET PO SCH (09:28)
[2019-08-07] MEDS: Cyanocobalamin (B-12) 1,000 MCG TABLET PO SCH ×2 (09:28→21:34)
[2019-08-07] MEDS: cefTRIAXone 2,000 MG in Water for inj. (sterile) 20 ML IVP SCH (09:37)
[2019-08-07] MEDS: traZODone 50 MG TABLET PO SCH (21:34)
[2019-08-08] MEDS: *HR* OxyCODONE/APAP 5/325 TABLET PO PRN ×3 (05:32→20:41)
[2019-08-08] MEDS: Ascorbic Acid 500 MG TABLET PO SCH ×2 (09:37→16:45)
[2019-08-08] MEDS: Lactobacillus 1 EACH CAP.SPRINK PO SCH ×2 (09:37→20:38)
[2019-08-08] MEDS: Multivit/Ca/Min/Fe/FA 1 TAB TABLET PO SCH (09:37)
[2019-08-08] MEDS: *HR* Metformin 500 MG TABLET PO SCH (09:37)
[2019-08-08] MEDS: Cholecalciferol (D-3) 1,000 UNIT (25MCG) TABLET PO SCH (09:37)
[2019-08-08] MEDS: Cyanocobalamin (B-12) 1,000 MCG TABLET PO SCH ×2 (09:37→20:38)
[2019-08-08] MEDS: Aspirin Enteric Coated 81 MG Tablet PO SCH (09:37)
[2019-08-08] MEDS: Metoprolol XL (24 HR) Succ 25 MG TAB.ER.24H PO SCH (09:38)
[2019-08-08] MEDS: metroNIDAZOLE 500 MG TABLET PO SCH ×3 (09:38→20:38)
[2019-08-08] MEDS: cefTRIAXone 2,000 MG in Water for inj. (sterile) 20 ML IVP SCH (09:38)
[2019-08-08] MEDS: Fluticasone Propionate Nasal 50 MCG/SPRAY BOTTLE NS SCH ×2 (09:45→20:38)
[2019-08-08] MEDS: traZODone 50 MG TABLET PO SCH (20:38)
[2019-08-09] MEDS: *HR* OxyCODONE/APAP 5/325 TABLET PO PRN ×4 (01:09→19:38)
[2019-08-09] MEDS: *HR* Metformin 500 MG TABLET PO SCH (06:32)
[2019-08-09] MEDS: Ascorbic Acid 500 MG TABLET PO SCH ×2 (06:32→15:36)
[2019-08-09] MEDS: Metoprolol XL (24 HR) Succ 25 MG TAB.ER.24H PO SCH (11:07)
[2019-08-09] MEDS: Lactobacillus 1 EACH CAP.SPRINK PO SCH ×2 (11:07→19:38)
[2019-08-09] MEDS: *HR* FentaNYL PATCH 12 MCG PATCH TD SCH (11:07)
[2019-08-09] MEDS: Multivit/Ca/Min/Fe/FA 1 TAB TABLET PO SCH (11:07)
[2019-08-09] MEDS: Cyanocobalamin (B-12) 1,000 MCG TABLET PO SCH ×2 (11:07→19:38)
[2019-08-09] MEDS: Aspirin Enteric Coated 81 MG Tablet PO SCH (11:07)
[2019-08-09] MEDS: Cholecalciferol (D-3) 1,000 UNIT (25MCG) TABLET PO SCH (11:07)
[2019-08-09] MEDS: metroNIDAZOLE 500 MG TABLET PO SCH ×3 (11:07→19:38)
[2019-08-09] MEDS: cefTRIAXone 2,000 MG in Water for inj. (sterile) 20 ML IVP SCH (11:08)
[2019-08-09] MEDS: Fluticasone Propionate Nasal 50 MCG/SPRAY BOTTLE NS SCH ×2 (11:08→19:44)
[2019-08-09] MEDS: traZODone 50 MG TABLET PO SCH (19:38)
[2019-08-09] MEDS: ALPRAZolam 1 MG TABLET PO PRN (19:38)
[2019-08-10] MEDS: *HR* OxyCODONE/APAP 5/325 TABLET PO PRN ×3 (06:22→19:41)
[2019-08-10] MEDS: Ascorbic Acid 500 MG TABLET PO SCH ×2 (08:32→17:30)
[2019-08-10] MEDS: metroNIDAZOLE 500 MG TABLET PO SCH ×3 (08:32→19:41)
[2019-08-10] MEDS: Cholecalciferol (D-3) 1,000 UNIT (25MCG) TABLET PO SCH (08:32)
[2019-08-10] MEDS: Lactobacillus 1 EACH CAP.SPRINK PO SCH ×2 (08:32→19:41)
[2019-08-10] MEDS: *HR* Metformin 500 MG TABLET PO SCH (08:32)
[2019-08-10] MEDS: Aspirin Enteric Coated 81 MG Tablet PO SCH (08:32)
[2019-08-10] MEDS: Cyanocobalamin (B-12) 1,000 MCG TABLET PO SCH ×2 (08:32→19:41)
[2019-08-10] MEDS: Metoprolol XL (24 HR) Succ 25 MG TAB.ER.24H PO SCH (08:32)
[2019-08-10] MEDS: Multivit/Ca/Min/Fe/FA 1 TAB TABLET PO SCH (08:32)
[2019-08-10] MEDS: Fluticasone Propionate Nasal 50 MCG/SPRAY BOTTLE NS SCH ×2 (08:33→19:41)
[2019-08-10] MEDS: cefTRIAXone 2,000 MG in Water for inj. (sterile) 20 ML IVP SCH (08:33)
[2019-08-10] MEDS: Acetaminophen 325 MG TABLET PO SCH ×2 (11:25→17:30)
[2019-08-10] MEDS: traZODone 50 MG TABLET PO SCH (19:41)
[2019-08-10] MEDS: ALPRAZolam 1 MG TABLET PO PRN (19:41)
[2019-08-11] MEDS: Acetaminophen 325 MG TABLET PO SCH ×4 (01:00→18:04)
[2019-08-11] MEDS: *HR* OxyCODONE/APAP 5/325 TABLET PO PRN ×3 (04:25→20:54)
[2019-08-11 07:57] LABS: Alanine Aminotransferase 9 Units/L (7-52); Albumin 3.3 g/dL (3.5-5.7); Albumin/Globulin Ratio 1.1 (1.1-2.2); Alkaline Phosphatase 49 Units/L (34-104); Aspartate Amino Transferase 18 Units/L (13-39); BUN/Creatinine Ratio 22 (6-26); Bilirubin,Total 0.3 mg/dL (0.3-1.0); Blood Urea Nitrogen 20 mg/dL (8-23); Calcium 8.6 mg/dL (8.6-10.3); Carbon Dioxide 32 mEq/L (23-29); Chloride 103 mEq/L (98-107); Globulin 2.9 g/dL (2.4-3.5); Glucose 128 mg/dL (70-105); Magnesium 2.1 mg/dL (1.6-2.6); Osmolality,Calculated 294 (280-300); Potassium 4.4 mEq/L (3.5-5.1); Sodium 140 mEq/L (136-145); Total Protein 6.2 g/dL (6.4-8.9); eGFR For African Americans > 60 (> 60); eGFR For Non-African Americans > 60 (> 60)
[2019-08-11] MEDS: *HR* Metformin 500 MG TABLET PO SCH (09:27)
[2019-08-11] MEDS: Ascorbic Acid 500 MG TABLET PO SCH ×2 (09:27→18:04)
[2019-08-11] MEDS: Cyanocobalamin (B-12) 1,000 MCG TABLET PO SCH ×2 (09:27→20:43)
[2019-08-11] MEDS: Multivit/Ca/Min/Fe/FA 1 TAB TABLET PO SCH (09:27)
[2019-08-11] MEDS: Cholecalciferol (D-3) 1,000 UNIT (25MCG) TABLET PO SCH (09:27)
[2019-08-11] MEDS: Aspirin Enteric Coated 81 MG Tablet PO SCH (09:27)
[2019-08-11] MEDS: Lactobacillus 1 EACH CAP.SPRINK PO SCH ×2 (09:27→20:43)
[2019-08-11] MEDS: Fluticasone Propionate Nasal 50 MCG/SPRAY BOTTLE NS SCH ×2 (09:27→20:54)
[2019-08-11] MEDS: cefTRIAXone 2,000 MG in Water for inj. (sterile) 20 ML IVP SCH (09:28)
[2019-08-11] MEDS: metroNIDAZOLE 500 MG TABLET PO SCH ×3 (09:30→20:54)
[2019-08-11] MEDS: Metoprolol XL (24 HR) Succ 25 MG TAB.ER.24H PO SCH (09:31)
[2019-08-11] MEDS: ALPRAZolam 1 MG TABLET PO PRN (20:43)
[2019-08-11] MEDS: traZODone 50 MG TABLET PO SCH (20:43)
[2019-08-12] MEDS: Acetaminophen 325 MG TABLET PO SCH ×4 (00:58→17:58)
[2019-08-12] MEDS: Cholecalciferol (D-3) 1,000 UNIT (25MCG) TABLET PO SCH (09:38)
[2019-08-12] MEDS: Lactobacillus 1 EACH CAP.SPRINK PO SCH ×2 (09:38→21:58)
[2019-08-12] MEDS: *HR* Metformin 500 MG TABLET PO SCH (09:38)
[2019-08-12] MEDS: Multivit/Ca/Min/Fe/FA 1 TAB TABLET PO SCH (09:39)
[2019-08-12] MEDS: *HR* OxyCODONE/APAP 5/325 TABLET PO PRN ×3 (09:39→21:57)
[2019-08-12] MEDS: Ascorbic Acid 500 MG TABLET PO SCH ×2 (09:39→17:57)
[2019-08-12] MEDS: metroNIDAZOLE 500 MG TABLET PO SCH ×3 (09:40→21:58)
[2019-08-12] MEDS: Cyanocobalamin (B-12) 1,000 MCG TABLET PO SCH ×2 (09:40→21:57)
[2019-08-12] MEDS: Metoprolol XL (24 HR) Succ 25 MG TAB.ER.24H PO SCH (09:40)
[2019-08-12] MEDS: Fluticasone Propionate Nasal 50 MCG/SPRAY BOTTLE NS SCH ×2 (09:41→21:59)
[2019-08-12] MEDS: cefTRIAXone 2,000 MG in Water for inj. (sterile) 20 ML IVP SCH (09:41)
[2019-08-12] MEDS: Aspirin Enteric Coated 81 MG Tablet PO SCH (09:42)
[2019-08-12] MEDS: *HR* FentaNYL PATCH 12 MCG PATCH TD SCH (10:49)
[2019-08-12] MEDS: ALPRAZolam 1 MG TABLET PO PRN ×2 (17:57→21:58)
[2019-08-12] MEDS: traZODone 50 MG TABLET PO SCH (21:57)
[2019-08-13] MEDS: Acetaminophen 325 MG TABLET PO SCH ×4 (01:04→17:16)
[2019-08-13] MEDS: cefTRIAXone 2,000 MG in Water for inj. (sterile) 20 ML IVP SCH (08:40)
[2019-08-13] MEDS: Cholecalciferol (D-3) 1,000 UNIT (25MCG) TABLET PO SCH (08:41)
[2019-08-13] MEDS: Fluticasone Propionate Nasal 50 MCG/SPRAY BOTTLE NS SCH ×2 (08:41→22:53)
[2019-08-13] MEDS: Aspirin Enteric Coated 81 MG Tablet PO SCH (08:42)
[2019-08-13] MEDS: Ascorbic Acid 500 MG TABLET PO SCH ×2 (08:42→17:16)
[2019-08-13] MEDS: *HR* Metformin 500 MG TABLET PO SCH (08:43)
[2019-08-13] MEDS: metroNIDAZOLE 500 MG TABLET PO SCH ×3 (08:44→22:52)
[2019-08-13] MEDS: Cyanocobalamin (B-12) 1,000 MCG TABLET PO SCH ×2 (08:44→22:53)
[2019-08-13] MEDS: Multivit/Ca/Min/Fe/FA 1 TAB TABLET PO SCH (08:44)
[2019-08-13] MEDS: Lactobacillus 1 EACH CAP.SPRINK PO SCH (08:44)
[2019-08-13] MEDS: Metoprolol XL (24 HR) Succ 25 MG TAB.ER.24H PO SCH (08:46)
[2019-08-13] MEDS: traZODone 50 MG TABLET PO SCH (22:53)
[2019-08-14] MEDS: Acetaminophen 325 MG TABLET PO SCH ×5 (01:27→23:36)
[2019-08-14] MEDS: Cyanocobalamin (B-12) 1,000 MCG TABLET PO SCH ×2 (10:14→20:16)
[2019-08-14] MEDS: Metoprolol XL (24 HR) Succ 25 MG TAB.ER.24H PO SCH (10:15)
[2019-08-14] MEDS: Ascorbic Acid 500 MG TABLET PO SCH ×2 (10:15→17:03)
[2019-08-14] MEDS: Lactobacillus 1 EACH CAP.SPRINK PO SCH ×2 (10:15→20:16)
[2019-08-14] MEDS: metroNIDAZOLE 500 MG TABLET PO SCH ×3 (10:15→20:16)
[2019-08-14] MEDS: Aspirin Enteric Coated 81 MG Tablet PO SCH (10:15)
[2019-08-14] MEDS: *HR* Metformin 500 MG TABLET PO SCH (10:15)
[2019-08-14] MEDS: cefTRIAXone 2,000 MG in Water for inj. (sterile) 20 ML IVP SCH (10:15)
[2019-08-14] MEDS: Multivit/Ca/Min/Fe/FA 1 TAB TABLET PO SCH (10:15)
[2019-08-14] MEDS: Cholecalciferol (D-3) 1,000 UNIT (25MCG) TABLET PO SCH (10:15)
[2019-08-14] MEDS: Fluticasone Propionate Nasal 50 MCG/SPRAY BOTTLE NS SCH ×2 (10:20→21:00)
[2019-08-14] MEDS: ALPRAZolam 1 MG TABLET PO PRN (20:16)
[2019-08-14] MEDS: traZODone 50 MG TABLET PO SCH (20:16)
[2019-08-14] MEDS: *HR* OxyCODONE/APAP 5/325 TABLET PO PRN (20:16)
[2019-08-15] MEDS: Acetaminophen 325 MG TABLET PO SCH ×3 (05:25→17:05)
[2019-08-15] MEDS: *HR* OxyCODONE/APAP 5/325 TABLET PO PRN ×3 (05:25→20:42)
[2019-08-15 07:30] LABS: Basophils # 0.1 K/mcL (0.0-0.2); Basophils % 1.3 %; Eosinophils # 0.5 K/mcL (0.0-0.6); Eosinophils % 6.7 %; Hematocrit 36.2 % (35.3-44.9); Hemoglobin 11.5 g/dL (11.5-15.4); Immature Granulocytes % 0.4 % (0-4); Lymphocytes # 2.2 K/mcL (0.6-4.6); Lymphocytes % 27.4 %; Mean Corpuscular HGB Conc 31.8 g/dL (31.6-35.5); Mean Corpuscular Hemoglobin 28.5 pg (28.0-33.3); Mean Corpuscular Volume 89.6 fL (83.0-100.0); Monocytes # 0.6 K/mcL (0.0-1.3); Monocytes % 7.7 %; Neutrophils # 4.5 K/mcL (1.6-8.9); Platelet Count 307 K/mcL (140-400); Red Blood Count 4.04 M/mcL (3.82-4.97); Red Cell Distribution Width 15.1 % (11.5-14.5); Segmented Neutrophils % 56.5 %; White Blood Count 7.9 K/mcL (4.3-11.1)
[2019-08-15 08:00] LABS: BUN/Creatinine Ratio 37 (6-26); Blood Urea Nitrogen 26 mg/dL (8-23); Calcium 8.8 mg/dL (8.6-10.3); Carbon Dioxide 33 mEq/L (23-29); Chloride 106 mEq/L (98-107); Glucose 132 mg/dL (70-105); Osmolality,Calculated 305 (280-300); Sodium 144 mEq/L (136-145); eGFR For African Americans > 60 (> 60); eGFR For Non-African Americans > 60 (> 60)
[2019-08-15] MEDS: *HR* FentaNYL PATCH 12 MCG PATCH TD SCH (09:12)
[2019-08-15] MEDS: Cholecalciferol (D-3) 1,000 UNIT (25MCG) TABLET PO SCH (09:12)
[2019-08-15] MEDS: Multivit/Ca/Min/Fe/FA 1 TAB TABLET PO SCH (09:13)
[2019-08-15] MEDS: Aspirin Enteric Coated 81 MG Tablet PO SCH (09:13)
[2019-08-15] MEDS: cefTRIAXone 2,000 MG in Water for inj. (sterile) 20 ML IVP SCH (09:13)
[2019-08-15] MEDS: Metoprolol XL (24 HR) Succ 25 MG TAB.ER.24H PO SCH (09:13)
[2019-08-15] MEDS: metroNIDAZOLE 500 MG TABLET PO SCH ×3 (09:13→20:42)
[2019-08-15] MEDS: Lactobacillus 1 EACH CAP.SPRINK PO SCH ×2 (09:13→20:42)
[2019-08-15] MEDS: *HR* Metformin 500 MG TABLET PO SCH (09:13)
[2019-08-15] MEDS: Cyanocobalamin (B-12) 1,000 MCG TABLET PO SCH ×2 (09:13→20:43)
[2019-08-15] MEDS: Ascorbic Acid 500 MG TABLET PO SCH ×2 (09:13→17:05)
[2019-08-15] MEDS: Fluticasone Propionate Nasal 50 MCG/SPRAY BOTTLE NS SCH ×2 (09:15→22:48)
[2019-08-15] MEDS: ALPRAZolam 1 MG TABLET PO PRN ×2 (13:26→20:42)
[2019-08-15] MEDS: traZODone 50 MG TABLET PO SCH (20:42)
[2019-08-16] MEDS: Acetaminophen 325 MG TABLET PO SCH ×4 (01:16→17:35)
[2019-08-16] MEDS: *HR* OxyCODONE/APAP 5/325 TABLET PO PRN ×3 (02:04→16:25)
[2019-08-16] MEDS: metroNIDAZOLE 500 MG TABLET PO SCH ×3 (08:37→20:58)
[2019-08-16] MEDS: Metoprolol XL (24 HR) Succ 25 MG TAB.ER.24H PO SCH (08:38)
[2019-08-16] MEDS: Ascorbic Acid 500 MG TABLET PO SCH ×2 (08:38→16:23)
[2019-08-16] MEDS: *HR* Metformin 500 MG TABLET PO SCH (08:38)
[2019-08-16] MEDS: Cyanocobalamin (B-12) 1,000 MCG TABLET PO SCH ×2 (08:39→20:58)
[2019-08-16] MEDS: Aspirin Enteric Coated 81 MG Tablet PO SCH (08:39)
[2019-08-16] MEDS: Cholecalciferol (D-3) 1,000 UNIT (25MCG) TABLET PO SCH (08:39)
[2019-08-16] MEDS: Lactobacillus 1 EACH CAP.SPRINK PO SCH ×2 (08:40→20:59)
[2019-08-16] MEDS: Multivit/Ca/Min/Fe/FA 1 TAB TABLET PO SCH (08:40)
[2019-08-16] MEDS: cefTRIAXone 2,000 MG in Water for inj. (sterile) 20 ML IVP SCH (08:41)
[2019-08-16] MEDS: Fluticasone Propionate Nasal 50 MCG/SPRAY BOTTLE NS SCH ×2 (08:41→20:59)
[2019-08-16] MEDS: traZODone 50 MG TABLET PO SCH (20:57)
[2019-08-16] MEDS: ALPRAZolam 1 MG TABLET PO PRN (20:57)
[2019-08-17] MEDS: Acetaminophen 325 MG TABLET PO SCH ×4 (00:58→17:19)
[2019-08-17] MEDS: *HR* OxyCODONE/APAP 5/325 TABLET PO PRN ×3 (05:18→21:07)
[2019-08-17] MEDS: metroNIDAZOLE 500 MG TABLET PO SCH ×3 (09:21→21:08)
[2019-08-17] MEDS: Cholecalciferol (D-3) 1,000 UNIT (25MCG) TABLET PO SCH (09:21)
[2019-08-17] MEDS: Aspirin Enteric Coated 81 MG Tablet PO SCH (09:22)
[2019-08-17] MEDS: Cyanocobalamin (B-12) 1,000 MCG TABLET PO SCH ×2 (09:22→21:07)
[2019-08-17] MEDS: Lactobacillus 1 EACH CAP.SPRINK PO SCH ×2 (09:22→21:07)
[2019-08-17] MEDS: Multivit/Ca/Min/Fe/FA 1 TAB TABLET PO SCH (09:22)
[2019-08-17] MEDS: Metoprolol XL (24 HR) Succ 25 MG TAB.ER.24H PO SCH (09:23)
[2019-08-17] MEDS: *HR* Metformin 500 MG TABLET PO SCH (09:23)
[2019-08-17] MEDS: Ascorbic Acid 500 MG TABLET PO SCH ×2 (09:23→16:14)
[2019-08-17] MEDS: cefTRIAXone 2,000 MG in Water for inj. (sterile) 20 ML IVP SCH (09:24)
[2019-08-17] MEDS: Fluticasone Propionate Nasal 50 MCG/SPRAY BOTTLE NS SCH ×2 (09:37→21:08)
[2019-08-17] MEDS: ALPRAZolam 1 MG TABLET PO PRN (21:08)
[2019-08-17] MEDS: traZODone 50 MG TABLET PO SCH (21:08)
[2019-08-18] MEDS: Acetaminophen 325 MG TABLET PO SCH ×4 (00:17→17:46)
[2019-08-18] MEDS: *HR* OxyCODONE/APAP 5/325 TABLET PO PRN ×4 (04:30→20:28)
[2019-08-18] MEDS: Fluticasone Propionate Nasal 50 MCG/SPRAY BOTTLE NS SCH ×2 (08:01→20:28)
[2019-08-18] MEDS: cefTRIAXone 2,000 MG in Water for inj. (sterile) 20 ML IVP SCH (08:02)
[2019-08-18] MEDS: Aspirin Enteric Coated 81 MG Tablet PO SCH (08:03)
[2019-08-18] MEDS: Lactobacillus 1 EACH CAP.SPRINK PO SCH ×2 (08:03→20:28)
[2019-08-18] MEDS: *HR* Metformin 500 MG TABLET PO SCH (08:03)
[2019-08-18] MEDS: Multivit/Ca/Min/Fe/FA 1 TAB TABLET PO SCH (08:03)
[2019-08-18] MEDS: Cholecalciferol (D-3) 1,000 UNIT (25MCG) TABLET PO SCH (08:03)
[2019-08-18] MEDS: metroNIDAZOLE 500 MG TABLET PO SCH ×3 (08:03→20:28)
[2019-08-18] MEDS: Metoprolol XL (24 HR) Succ 25 MG TAB.ER.24H PO SCH (08:04)
[2019-08-18] MEDS: Cyanocobalamin (B-12) 1,000 MCG TABLET PO SCH ×2 (08:04→20:28)
[2019-08-18] MEDS: Ascorbic Acid 500 MG TABLET PO SCH ×2 (08:04→17:46)
[2019-08-18] MEDS: *HR* FentaNYL PATCH 12 MCG PATCH TD SCH (11:47)
[2019-08-18] MEDS: ALPRAZolam 1 MG TABLET PO PRN (20:28)
[2019-08-18] MEDS: traZODone 50 MG TABLET PO SCH (20:28)
[2019-08-19] MEDS: Acetaminophen 325 MG TABLET PO SCH ×4 (00:27→16:46)
[2019-08-19] MEDS: *HR* OxyCODONE/APAP 5/325 TABLET PO PRN ×3 (04:28→20:33)
[2019-08-19] MEDS: Ascorbic Acid 500 MG TABLET PO SCH ×2 (06:28→16:41)
[2019-08-19] MEDS: Fluticasone Propionate Nasal 50 MCG/SPRAY BOTTLE NS SCH ×2 (08:33→20:36)
[2019-08-19] MEDS: cefTRIAXone 2,000 MG in Water for inj. (sterile) 20 ML IVP SCH (08:33)
[2019-08-19] MEDS: Aspirin Enteric Coated 81 MG Tablet PO SCH (08:34)
[2019-08-19] MEDS: metroNIDAZOLE 500 MG TABLET PO SCH ×3 (08:34→20:33)
[2019-08-19] MEDS: Metoprolol XL (24 HR) Succ 25 MG TAB.ER.24H PO SCH (08:34)
[2019-08-19] MEDS: Cholecalciferol (D-3) 1,000 UNIT (25MCG) TABLET PO SCH (08:34)
[2019-08-19] MEDS: Lactobacillus 1 EACH CAP.SPRINK PO SCH ×2 (08:34→20:33)
[2019-08-19] MEDS: *HR* Metformin 500 MG TABLET PO SCH (08:35)
[2019-08-19] MEDS: Multivit/Ca/Min/Fe/FA 1 TAB TABLET PO SCH (08:35)
[2019-08-19] MEDS: Cyanocobalamin (B-12) 1,000 MCG TABLET PO SCH ×2 (08:35→20:33)
[2019-08-19] MEDS: Ibuprofen 600 MG TABLET PO PRN (19:30)
[2019-08-19] MEDS: ALPRAZolam 1 MG TABLET PO PRN (20:33)
[2019-08-19] MEDS: traZODone 50 MG TABLET PO SCH (20:33)
[2019-08-20] MEDS: Acetaminophen 325 MG TABLET PO SCH ×4 (00:27→18:15)
[2019-08-20] MEDS: *HR* OxyCODONE/APAP 5/325 TABLET PO PRN ×3 (05:38→20:00)
[2019-08-20] MEDS: Cyanocobalamin (B-12) 1,000 MCG TABLET PO SCH ×2 (08:43→20:00)
[2019-08-20] MEDS: Aspirin Enteric Coated 81 MG Tablet PO SCH (08:43)
[2019-08-20] MEDS: metroNIDAZOLE 500 MG TABLET PO SCH ×3 (08:43→20:00)
[2019-08-20] MEDS: Multivit/Ca/Min/Fe/FA 1 TAB TABLET PO SCH (08:43)
[2019-08-20] MEDS: Cholecalciferol (D-3) 1,000 UNIT (25MCG) TABLET PO SCH (08:43)
[2019-08-20] MEDS: Lactobacillus 1 EACH CAP.SPRINK PO SCH ×2 (08:43→20:00)
[2019-08-20] MEDS: Ascorbic Acid 500 MG TABLET PO SCH ×2 (08:43→16:18)
[2019-08-20] MEDS: Metoprolol XL (24 HR) Succ 25 MG TAB.ER.24H PO SCH (08:44)
[2019-08-20] MEDS: cefTRIAXone 2,000 MG in Water for inj. (sterile) 20 ML IVP SCH (08:44)
[2019-08-20] MEDS: *HR* Metformin 500 MG TABLET PO SCH (08:44)
[2019-08-20] MEDS: Fluticasone Propionate Nasal 50 MCG/SPRAY BOTTLE NS SCH ×2 (08:45→20:02)
[2019-08-20] MEDS: Ibuprofen 600 MG TABLET PO PRN (09:01)
[2019-08-20] MEDS: ALPRAZolam 1 MG TABLET PO PRN ×2 (16:18→20:00)
[2019-08-20] MEDS: traZODone 50 MG TABLET PO SCH (20:00)
[2019-08-21] MEDS: Acetaminophen 325 MG TABLET PO SCH ×5 (00:45→23:05)
[2019-08-21] MEDS: Cholecalciferol (D-3) 1,000 UNIT (25MCG) TABLET PO SCH (09:15)
[2019-08-21] MEDS: *HR* Metformin 500 MG TABLET PO SCH (09:16)
[2019-08-21] MEDS: *HR* OxyCODONE/APAP 5/325 TABLET PO PRN ×3 (09:16→20:13)
[2019-08-21] MEDS: Cyanocobalamin (B-12) 1,000 MCG TABLET PO SCH ×2 (09:17→20:08)
[2019-08-21] MEDS: metroNIDAZOLE 500 MG TABLET PO SCH ×3 (09:17→20:09)
[2019-08-21] MEDS: Ascorbic Acid 500 MG TABLET PO SCH ×2 (09:18→15:59)
[2019-08-21] MEDS: Multivit/Ca/Min/Fe/FA 1 TAB TABLET PO SCH (09:18)
[2019-08-21] MEDS: Aspirin Enteric Coated 81 MG Tablet PO SCH (09:18)
[2019-08-21] MEDS: Lactobacillus 1 EACH CAP.SPRINK PO SCH ×2 (09:18→20:08)
[2019-08-21] MEDS: *HR* FentaNYL PATCH 12 MCG PATCH TD SCH (09:18)
[2019-08-21] MEDS: Metoprolol XL (24 HR) Succ 25 MG TAB.ER.24H PO SCH (09:19)
[2019-08-21] MEDS: cefTRIAXone 2,000 MG in Water for inj. (sterile) 20 ML IVP SCH (09:19)
[2019-08-21] MEDS: Fluticasone Propionate Nasal 50 MCG/SPRAY BOTTLE NS SCH ×2 (09:20→20:14)
[2019-08-21 10:51] LABS: Basophils # 0.1 K/mcL (0.0-0.2); Basophils % 0.9 %; Eosinophils # 0.4 K/mcL (0.0-0.6); Eosinophils % 4.1 %; Hematocrit 40.6 % (35.3-44.9); Immature Granulocytes % 0.3 % (0-4); Lymphocytes # 2.4 K/mcL (0.6-4.6); Lymphocytes % 23.1 %; Mean Corpuscular Hemoglobin 28.6 pg (28.0-33.3); Mean Corpuscular Volume 89.2 fL (83.0-100.0); Mean Platelet Volume 11.7 fL (9.4-12.4); Monocytes # 0.6 K/mcL (0.0-1.3); Monocytes % 5.3 %; Neutrophils # 6.9 K/mcL (1.6-8.9); Platelet Count 288 K/mcL (140-400); Red Blood Count 4.55 M/mcL (3.82-4.97); Red Cell Distribution Width 15.2 % (11.5-14.5); Segmented Neutrophils % 66.3 %; White Blood Count 10.4 K/mcL (4.3-11.1)
[2019-08-21 11:08] LABS: BUN/Creatinine Ratio 23 (6-26); Blood Urea Nitrogen 20 mg/dL (8-23); Calcium 9.3 mg/dL (8.6-10.3); Carbon Dioxide 30 mEq/L (23-29); Chloride 102 mEq/L (98-107); Glucose 178 mg/dL (70-105); Osmolality,Calculated 299 (280-300); Potassium 4.1 mEq/L (3.5-5.1); Sodium 141 mEq/L (136-145); eGFR For African Americans > 60 (> 60); eGFR For Non-African Americans > 60 (> 60)
[2019-08-21] MEDS: Nystatin SUSP 5 ML UD.LIQ PO SCH ×3 (14:58→23:05)
[2019-08-21 18:18] LABS: C-Reactive Protein < 5 mg/L (Less than 10)
[2019-08-21] MEDS: ALPRAZolam 1 MG TABLET PO PRN (20:08)
[2019-08-21] MEDS: traZODone 50 MG TABLET PO SCH (20:09)
[2019-08-22] MEDS: *HR* OxyCODONE/APAP 5/325 TABLET PO PRN ×4 (03:02→21:29)
[2019-08-22] MEDS: Nystatin SUSP 5 ML UD.LIQ PO SCH ×3 (05:21→17:21)
[2019-08-22] MEDS: Acetaminophen 325 MG TABLET PO SCH ×3 (05:21→18:49)
[2019-08-22] MEDS: Ascorbic Acid 500 MG TABLET PO SCH ×2 (07:50→17:21)
[2019-08-22] MEDS: Cholecalciferol (D-3) 1,000 UNIT (25MCG) TABLET PO SCH (07:50)
[2019-08-22] MEDS: metroNIDAZOLE 500 MG TABLET PO SCH ×3 (07:50→21:29)
[2019-08-22] MEDS: Lactobacillus 1 EACH CAP.SPRINK PO SCH ×2 (07:50→21:29)
[2019-08-22] MEDS: Cyanocobalamin (B-12) 1,000 MCG TABLET PO SCH ×2 (07:50→21:29)
[2019-08-22] MEDS: Aspirin Enteric Coated 81 MG Tablet PO SCH (07:50)
[2019-08-22] MEDS: Multivit/Ca/Min/Fe/FA 1 TAB TABLET PO SCH (07:50)
[2019-08-22] MEDS: *HR* Metformin 500 MG TABLET PO SCH (07:50)
[2019-08-22] MEDS: Metoprolol XL (24 HR) Succ 25 MG TAB.ER.24H PO SCH (07:51)
[2019-08-22] MEDS: Fluticasone Propionate Nasal 50 MCG/SPRAY BOTTLE NS SCH ×2 (07:51→21:30)
[2019-08-22] MEDS: cefTRIAXone 2,000 MG in Water for inj. (sterile) 20 ML IVP SCH (07:51)
[2019-08-22] MEDS: ALPRAZolam 1 MG TABLET PO PRN (21:29)
[2019-08-22] MEDS: traZODone 50 MG TABLET PO SCH (21:29)
[2019-08-23] MEDS: Nystatin SUSP 5 ML UD.LIQ PO SCH ×4 (02:07→16:45)
[2019-08-23] MEDS: Acetaminophen 325 MG TABLET PO SCH ×4 (02:08→16:45)
[2019-08-23] MEDS: *HR* OxyCODONE/APAP 5/325 TABLET PO PRN ×4 (05:40→20:30)
[2019-08-23] MEDS: Aspirin Enteric Coated 81 MG Tablet PO SCH (09:48)
[2019-08-23] MEDS: *HR* Metformin 500 MG TABLET PO SCH (09:48)
[2019-08-23] MEDS: Lactobacillus 1 EACH CAP.SPRINK PO SCH ×2 (09:48→20:30)
[2019-08-23] MEDS: Multivit/Ca/Min/Fe/FA 1 TAB TABLET PO SCH (09:48)
[2019-08-23] MEDS: Cholecalciferol (D-3) 1,000 UNIT (25MCG) TABLET PO SCH (09:48)
[2019-08-23] MEDS: metroNIDAZOLE 500 MG TABLET PO SCH ×3 (09:48→20:30)
[2019-08-23] MEDS: Metoprolol XL (24 HR) Succ 25 MG TAB.ER.24H PO SCH (09:49)
[2019-08-23] MEDS: Ascorbic Acid 500 MG TABLET PO SCH ×2 (09:49→15:09)
[2019-08-23] MEDS: Cyanocobalamin (B-12) 1,000 MCG TABLET PO SCH ×2 (09:49→20:30)
[2019-08-23] MEDS: cefTRIAXone 2,000 MG in Water for inj. (sterile) 20 ML IVP SCH (09:50)
[2019-08-23] MEDS: Fluticasone Propionate Nasal 50 MCG/SPRAY BOTTLE NS SCH ×2 (09:52→20:30)
[2019-08-23] MEDS: traZODone 50 MG TABLET PO SCH (20:31)
[2019-08-23] MEDS: ALPRAZolam 1 MG TABLET PO PRN (20:34)
[2019-08-24] MEDS: Acetaminophen 325 MG TABLET PO SCH ×4 (01:08→17:19)
[2019-08-24] MEDS: Nystatin SUSP 5 ML UD.LIQ PO SCH ×4 (01:08→17:19)
[2019-08-24] MEDS: *HR* OxyCODONE/APAP 5/325 TABLET PO PRN ×5 (02:33→21:56)
[2019-08-24] MEDS: Cholecalciferol (D-3) 1,000 UNIT (25MCG) TABLET PO SCH (08:15)
[2019-08-24] MEDS: metroNIDAZOLE 500 MG TABLET PO SCH ×3 (08:15→21:55)
[2019-08-24] MEDS: Lactobacillus 1 EACH CAP.SPRINK PO SCH ×2 (08:16→21:55)
[2019-08-24] MEDS: Metoprolol XL (24 HR) Succ 25 MG TAB.ER.24H PO SCH (08:16)
[2019-08-24] MEDS: Aspirin Enteric Coated 81 MG Tablet PO SCH (08:16)
[2019-08-24] MEDS: Multivit/Ca/Min/Fe/FA 1 TAB TABLET PO SCH (08:16)
[2019-08-24] MEDS: Cyanocobalamin (B-12) 1,000 MCG TABLET PO SCH ×2 (08:16→21:57)
[2019-08-24] MEDS: *HR* Metformin 500 MG TABLET PO SCH (08:16)
[2019-08-24] MEDS: cefTRIAXone 2,000 MG in Water for inj. (sterile) 20 ML IVP SCH (08:18)
[2019-08-24] MEDS: Ascorbic Acid 500 MG TABLET PO SCH ×2 (08:18→17:19)
[2019-08-24] MEDS: Fluticasone Propionate Nasal 50 MCG/SPRAY BOTTLE NS SCH ×2 (08:19→21:57)
[2019-08-24] MEDS: *HR* FentaNYL PATCH 12 MCG PATCH TD SCH (08:47)
[2019-08-24] MEDS: traZODone 50 MG TABLET PO SCH (21:55)
[2019-08-24] MEDS: ALPRAZolam 1 MG TABLET PO PRN (21:56)
[2019-08-25] MEDS: Acetaminophen 325 MG TABLET PO SCH ×4 (00:28→17:04)
[2019-08-25] MEDS: Nystatin SUSP 5 ML UD.LIQ PO SCH ×3 (07:51→17:04)
[2019-08-25] MEDS: Fluticasone Propionate Nasal 50 MCG/SPRAY BOTTLE NS SCH ×2 (08:52→20:31)
[2019-08-25] MEDS: Metoprolol XL (24 HR) Succ 25 MG TAB.ER.24H PO SCH (08:52)
[2019-08-25] MEDS: metroNIDAZOLE 500 MG TABLET PO SCH ×3 (08:53→20:30)
[2019-08-25] MEDS: Lactobacillus 1 EACH CAP.SPRINK PO SCH ×2 (08:53→20:30)
[2019-08-25] MEDS: Cholecalciferol (D-3) 1,000 UNIT (25MCG) TABLET PO SCH (08:53)
[2019-08-25] MEDS: *HR* OxyCODONE/APAP 5/325 TABLET PO PRN ×3 (08:53→20:30)
[2019-08-25] MEDS: Multivit/Ca/Min/Fe/FA 1 TAB TABLET PO SCH (08:53)
[2019-08-25] MEDS: Aspirin Enteric Coated 81 MG Tablet PO SCH (08:53)
[2019-08-25] MEDS: *HR* Metformin 500 MG TABLET PO SCH (08:53)
[2019-08-25] MEDS: Ascorbic Acid 500 MG TABLET PO SCH ×2 (08:53→17:03)
[2019-08-25] MEDS: cefTRIAXone 2,000 MG in Water for inj. (sterile) 20 ML IVP SCH (08:54)
[2019-08-25] MEDS: Cyanocobalamin (B-12) 1,000 MCG TABLET PO SCH ×2 (08:54→20:30)
[2019-08-25] MEDS: ALPRAZolam 1 MG TABLET PO PRN (20:30)
[2019-08-25] MEDS: traZODone 50 MG TABLET PO SCH (20:30)
[2019-08-26] MEDS: Acetaminophen 325 MG TABLET PO SCH ×4 (00:01→17:18)
[2019-08-26] MEDS: Nystatin SUSP 5 ML UD.LIQ PO SCH ×4 (00:01→17:18)
[2019-08-26] MEDS: cefTRIAXone 2,000 MG in Water for inj. (sterile) 20 ML IVP SCH (07:43)
[2019-08-26] MEDS: *HR* Metformin 500 MG TABLET PO SCH (07:44)
[2019-08-26] MEDS: Lactobacillus 1 EACH CAP.SPRINK PO SCH ×2 (07:44→20:44)
[2019-08-26] MEDS: Cholecalciferol (D-3) 1,000 UNIT (25MCG) TABLET PO SCH (07:44)
[2019-08-26] MEDS: Aspirin Enteric Coated 81 MG Tablet PO SCH (07:44)
[2019-08-26] MEDS: metroNIDAZOLE 500 MG TABLET PO SCH ×3 (07:44→20:44)
[2019-08-26] MEDS: Multivit/Ca/Min/Fe/FA 1 TAB TABLET PO SCH (07:44)
[2019-08-26] MEDS: Cyanocobalamin (B-12) 1,000 MCG TABLET PO SCH ×2 (07:44→20:44)
[2019-08-26] MEDS: Metoprolol XL (24 HR) Succ 25 MG TAB.ER.24H PO SCH (07:45)
[2019-08-26] MEDS: Fluticasone Propionate Nasal 50 MCG/SPRAY BOTTLE NS SCH ×2 (07:47→20:48)
[2019-08-26] MEDS: Ascorbic Acid 500 MG TABLET PO SCH ×2 (07:47→17:18)
[2019-08-26] MEDS: *HR* OxyCODONE/APAP 5/325 TABLET PO PRN ×3 (07:51→20:44)
[2019-08-26] MEDS: ALPRAZolam 1 MG TABLET PO PRN ×2 (10:35→20:44)
[2019-08-26] MEDS: traZODone 50 MG TABLET PO SCH (20:44)
[2019-08-27] MEDS: Acetaminophen 325 MG TABLET PO SCH ×4 (00:06→18:13)
[2019-08-27] MEDS: Nystatin SUSP 5 ML UD.LIQ PO SCH ×4 (00:07→18:13)
[2019-08-27] MEDS: Aspirin Enteric Coated 81 MG Tablet PO SCH (09:40)
[2019-08-27] MEDS: *HR* Metformin 500 MG TABLET PO SCH (09:40)
[2019-08-27] MEDS: Lactobacillus 1 EACH CAP.SPRINK PO SCH ×2 (09:40→20:33)
[2019-08-27] MEDS: Cholecalciferol (D-3) 1,000 UNIT (25MCG) TABLET PO SCH (09:40)
[2019-08-27] MEDS: Ascorbic Acid 500 MG TABLET PO SCH ×2 (09:41→18:13)
[2019-08-27] MEDS: Cyanocobalamin (B-12) 1,000 MCG TABLET PO SCH ×2 (09:41→20:33)
[2019-08-27] MEDS: Multivit/Ca/Min/Fe/FA 1 TAB TABLET PO SCH (09:41)
[2019-08-27] MEDS: *HR* FentaNYL PATCH 12 MCG PATCH TD SCH (09:42)
[2019-08-27] MEDS: metroNIDAZOLE 500 MG TABLET PO SCH ×3 (09:42→20:33)
[2019-08-27] MEDS: Metoprolol XL (24 HR) Succ 25 MG TAB.ER.24H PO SCH (09:42)
[2019-08-27] MEDS: cefTRIAXone 2,000 MG in Water for inj. (sterile) 20 ML IVP SCH (09:45)
[2019-08-27] MEDS: Fluticasone Propionate Nasal 50 MCG/SPRAY BOTTLE NS SCH ×2 (10:25→20:33)
[2019-08-27] MEDS: *HR* OxyCODONE/APAP 5/325 TABLET PO PRN ×2 (11:43→15:38)
[2019-08-27] MEDS: ALPRAZolam 1 MG TABLET PO PRN (11:43)
[2019-08-27] MEDS: traZODone 50 MG TABLET PO SCH (20:33)
[2019-08-27] MEDS: Ondansetron 4 MG/2 ML VIAL IVP PRN (22:37)
[2019-08-28] MEDS: Nystatin SUSP 5 ML UD.LIQ PO SCH ×4 (01:05→17:39)
[2019-08-28] MEDS: Acetaminophen 325 MG TABLET PO SCH ×4 (01:05→17:39)
[2019-08-28 06:17] LABS: Basophils # 0.1 K/mcL (0.0-0.2); Basophils % 0.7 %; Eosinophils # 0.4 K/mcL (0.0-0.6); Hematocrit 38.4 % (35.3-44.9); Hemoglobin 12.2 g/dL (11.5-15.4); Immature Granulocytes % 0.3 % (0-4); Lymphocytes # 2.3 K/mcL (0.6-4.6); Lymphocytes % 20.9 %; Mean Corpuscular HGB Conc 31.8 g/dL (31.6-35.5); Mean Corpuscular Hemoglobin 28.5 pg (28.0-33.3); Mean Corpuscular Volume 89.7 fL (83.0-100.0); Mean Platelet Volume 12.1 fL (9.4-12.4); Monocytes # 0.7 K/mcL (0.0-1.3); Monocytes % 6.8 %; Neutrophils # 7.2 K/mcL (1.6-8.9); Platelet Count 229 K/mcL (140-400); Red Blood Count 4.28 M/mcL (3.82-4.97); Red Cell Distribution Width 15.1 % (11.5-14.5); Segmented Neutrophils % 67.3 %; White Blood Count 10.8 K/mcL (4.3-11.1)
[2019-08-28] MEDS: *HR* OxyCODONE/APAP 5/325 TABLET PO PRN ×3 (06:27→19:52)
[2019-08-28 06:52] LABS: BUN/Creatinine Ratio 39 (6-26); Blood Urea Nitrogen 24 mg/dL (8-23); Carbon Dioxide 33 mEq/L (23-29); Chloride 104 mEq/L (98-107); Glucose 143 mg/dL (70-105); Osmolality,Calculated 301 (280-300); Sodium 142 mEq/L (136-145); eGFR For African Americans > 60 (> 60); eGFR For Non-African Americans > 60 (> 60)
[2019-08-28 08:49] LABS: % Iron Saturation 29 % (15-50); Iron 66 mcg/dL (50-170); Transferrin 162 mg/dL (203-362)
[2019-08-28] MEDS: metroNIDAZOLE 500 MG TABLET PO SCH ×3 (08:49→19:52)
[2019-08-28] MEDS: *HR* Metformin 500 MG TABLET PO SCH (08:49)
[2019-08-28] MEDS: Aspirin Enteric Coated 81 MG Tablet PO SCH (08:49)
[2019-08-28] MEDS: Cholecalciferol (D-3) 1,000 UNIT (25MCG) TABLET PO SCH (08:49)
[2019-08-28] MEDS: Ibuprofen 600 MG TABLET PO PRN (08:50)
[2019-08-28] MEDS: Metoprolol XL (24 HR) Succ 25 MG TAB.ER.24H PO SCH (08:51)
[2019-08-28] MEDS: Ascorbic Acid 500 MG TABLET PO SCH ×2 (08:51→17:39)
[2019-08-28] MEDS: Multivit/Ca/Min/Fe/FA 1 TAB TABLET PO SCH (08:51)
[2019-08-28] MEDS: Lactobacillus 1 EACH CAP.SPRINK PO SCH ×2 (08:51→19:52)
[2019-08-28] MEDS: Cyanocobalamin (B-12) 1,000 MCG TABLET PO SCH ×2 (08:51→19:52)
[2019-08-28] MEDS: cefTRIAXone 2,000 MG in Water for inj. (sterile) 20 ML IVP SCH (08:52)
[2019-08-28] MEDS: Fluticasone Propionate Nasal 50 MCG/SPRAY BOTTLE NS SCH ×2 (09:04→19:53)
[2019-08-28 09:06] LABS: Ferritin 40 ng/mL (10-120)
[2019-08-28] MEDS: ALPRAZolam 1 MG TABLET PO PRN ×2 (09:07→19:52)
[2019-08-28] MEDS: traZODone 50 MG TABLET PO SCH (19:52)
[2019-08-29] MEDS: Acetaminophen 325 MG TABLET PO SCH ×4 (00:02→17:04)
[2019-08-29] MEDS: Nystatin SUSP 5 ML UD.LIQ PO SCH ×4 (00:02→17:04)
[2019-08-29] MEDS: *HR* OxyCODONE/APAP 5/325 TABLET PO PRN ×4 (06:04→21:15)
[2019-08-29] MEDS: Cholecalciferol (D-3) 1,000 UNIT (25MCG) TABLET PO SCH (08:35)
[2019-08-29] MEDS: Cyanocobalamin (B-12) 1,000 MCG TABLET PO SCH ×2 (08:35→21:15)
[2019-08-29] MEDS: Ascorbic Acid 500 MG TABLET PO SCH ×2 (08:35→17:04)
[2019-08-29] MEDS: *HR* Metformin 500 MG TABLET PO SCH (08:35)
[2019-08-29] MEDS: Aspirin Enteric Coated 81 MG Tablet PO SCH (08:36)
[2019-08-29] MEDS: Multivit/Ca/Min/Fe/FA 1 TAB TABLET PO SCH (08:36)
[2019-08-29] MEDS: Lactobacillus 1 EACH CAP.SPRINK PO SCH ×2 (08:36→21:14)
[2019-08-29] MEDS: metroNIDAZOLE 500 MG TABLET PO SCH ×3 (08:36→21:14)
[2019-08-29] MEDS: cefTRIAXone 2,000 MG in Water for inj. (sterile) 20 ML IVP SCH (08:37)
[2019-08-29] MEDS: Fluticasone Propionate Nasal 50 MCG/SPRAY BOTTLE NS SCH ×2 (08:37→21:18)
[2019-08-29] MEDS: Metoprolol XL (24 HR) Succ 25 MG TAB.ER.24H PO SCH (12:42)
[2019-08-29] MEDS: ALPRAZolam 1 MG TABLET PO PRN (21:15)
[2019-08-29] MEDS: traZODone 50 MG TABLET PO SCH (21:15)
[2019-08-30] MEDS: Acetaminophen 325 MG TABLET PO SCH ×5 (00:06→23:53)
[2019-08-30] MEDS: Nystatin SUSP 5 ML UD.LIQ PO SCH ×5 (00:06→23:53)
[2019-08-30] MEDS: *HR* OxyCODONE/APAP 5/325 TABLET PO PRN ×4 (05:19→20:17)
[2019-08-30] MEDS: cefTRIAXone 2,000 MG in Water for inj. (sterile) 20 ML IVP SCH (10:15)
[2019-08-30] MEDS: Aspirin Enteric Coated 81 MG Tablet PO SCH (10:16)
[2019-08-30] MEDS: Metoprolol XL (24 HR) Succ 25 MG TAB.ER.24H PO SCH (10:16)
[2019-08-30] MEDS: Cholecalciferol (D-3) 1,000 UNIT (25MCG) TABLET PO SCH (10:16)
[2019-08-30] MEDS: Lactobacillus 1 EACH CAP.SPRINK PO SCH ×2 (10:16→20:17)
[2019-08-30] MEDS: Cyanocobalamin (B-12) 1,000 MCG TABLET PO SCH ×2 (10:16→20:17)
[2019-08-30] MEDS: ALPRAZolam 1 MG TABLET PO PRN ×2 (10:17→20:17)
[2019-08-30] MEDS: *HR* FentaNYL PATCH 12 MCG PATCH TD SCH (10:17)
[2019-08-30] MEDS: Ascorbic Acid 500 MG TABLET PO SCH ×2 (10:17→16:43)
[2019-08-30] MEDS: Multivit/Ca/Min/Fe/FA 1 TAB TABLET PO SCH (10:17)
[2019-08-30] MEDS: *HR* Metformin 500 MG TABLET PO SCH (10:17)
[2019-08-30] MEDS: metroNIDAZOLE 500 MG TABLET PO SCH ×3 (10:17→20:17)
[2019-08-30] MEDS: Fluticasone Propionate Nasal 50 MCG/SPRAY BOTTLE NS SCH ×3 (10:32→20:21)
[2019-08-30] MEDS: traZODone 50 MG TABLET PO SCH (20:17)
[2019-08-30] MEDS: Ondansetron 4 MG/2 ML VIAL IVP PRN (20:18)
[2019-08-31] MEDS: Nystatin SUSP 5 ML UD.LIQ PO SCH ×3 (06:07→16:57)
[2019-08-31] MEDS: Acetaminophen 325 MG TABLET PO SCH ×3 (06:07→16:57)
[2019-08-31] MEDS: Cyanocobalamin (B-12) 1,000 MCG TABLET PO SCH ×2 (09:32→19:56)
[2019-08-31] MEDS: metroNIDAZOLE 500 MG TABLET PO SCH ×3 (09:32→19:56)
[2019-08-31] MEDS: Metoprolol XL (24 HR) Succ 25 MG TAB.ER.24H PO SCH (09:32)
[2019-08-31] MEDS: Cholecalciferol (D-3) 1,000 UNIT (25MCG) TABLET PO SCH (09:32)
[2019-08-31] MEDS: Lactobacillus 1 EACH CAP.SPRINK PO SCH ×2 (09:32→19:56)
[2019-08-31] MEDS: cefTRIAXone 2,000 MG in Water for inj. (sterile) 20 ML IVP SCH (09:33)
[2019-08-31] MEDS: Ascorbic Acid 500 MG TABLET PO SCH ×2 (09:33→16:57)
[2019-08-31] MEDS: Aspirin Enteric Coated 81 MG Tablet PO SCH (09:33)
[2019-08-31] MEDS: Fluticasone Propionate Nasal 50 MCG/SPRAY BOTTLE NS SCH ×2 (09:33→19:56)
[2019-08-31] MEDS: Multivit/Ca/Min/Fe/FA 1 TAB TABLET PO SCH (09:33)
[2019-08-31] MEDS: *HR* Metformin 500 MG TABLET PO SCH (09:33)
[2019-08-31] MEDS: *HR* OxyCODONE/APAP 5/325 TABLET PO PRN ×3 (09:39→19:56)
[2019-08-31 12:52] LABS: Basophils # 0.1 K/mcL (0.0-0.2); Basophils % 0.6 %; Eosinophils # 0.2 K/mcL (0.0-0.6); Eosinophils % 2.8 %; Hematocrit 37.8 % (35.3-44.9); Immature Granulocytes % 0.2 % (0-4); Lymphocytes # 2.1 K/mcL (0.6-4.6); Lymphocytes % 24.4 %; Mean Corpuscular HGB Conc 31.7 g/dL (31.6-35.5); Mean Corpuscular Volume 91.3 fL (83.0-100.0); Mean Platelet Volume 12.3 fL (9.4-12.4); Monocytes # 0.6 K/mcL (0.0-1.3); Monocytes % 6.7 %; Neutrophils # 5.6 K/mcL (1.6-8.9); Platelet Count 234 K/mcL (140-400); Red Blood Count 4.14 M/mcL (3.82-4.97); Red Cell Distribution Width 15.2 % (11.5-14.5); Segmented Neutrophils % 65.3 %; White Blood Count 8.5 K/mcL (4.3-11.1)
[2019-08-31 13:07] LABS: BUN/Creatinine Ratio 37 (6-26); Blood Urea Nitrogen 31 mg/dL (8-23); Calcium 8.7 mg/dL (8.6-10.3); Carbon Dioxide 30 mEq/L (23-29); Chloride 99 mEq/L (98-107); Glucose 174 mg/dL (70-105); Osmolality,Calculated 295 (280-300); Potassium 4.3 mEq/L (3.5-5.1); Sodium 137 mEq/L (136-145); eGFR For African Americans > 60 (> 60); eGFR For Non-African Americans > 60 (> 60)
[2019-08-31] MEDS: traZODone 50 MG TABLET PO SCH (19:56)
[2019-08-31] MEDS: ALPRAZolam 1 MG TABLET PO PRN (19:56)
[2019-09-01] MEDS: Acetaminophen 325 MG TABLET PO SCH ×5 (00:08→23:55)
[2019-09-01] MEDS: Nystatin SUSP 5 ML UD.LIQ PO SCH ×5 (00:09→23:57)
[2019-09-01] MEDS: cefTRIAXone 2,000 MG in Water for inj. (sterile) 20 ML IVP SCH (09:04)
[2019-09-01] MEDS: Cholecalciferol (D-3) 1,000 UNIT (25MCG) TABLET PO SCH (09:05)
[2019-09-01] MEDS: metroNIDAZOLE 500 MG TABLET PO SCH ×3 (09:06→21:09)
[2019-09-01] MEDS: Metoprolol XL (24 HR) Succ 25 MG TAB.ER.24H PO SCH (09:06)
[2019-09-01] MEDS: Cyanocobalamin (B-12) 1,000 MCG TABLET PO SCH ×2 (09:06→21:07)
[2019-09-01] MEDS: Ascorbic Acid 500 MG TABLET PO SCH ×2 (09:06→16:45)
[2019-09-01] MEDS: *HR* OxyCODONE/APAP 5/325 TABLET PO PRN ×3 (09:06→18:13)
[2019-09-01] MEDS: Aspirin Enteric Coated 81 MG Tablet PO SCH (09:07)
[2019-09-01] MEDS: *HR* Metformin 500 MG TABLET PO SCH (09:07)
[2019-09-01] MEDS: Multivit/Ca/Min/Fe/FA 1 TAB TABLET PO SCH (09:07)
[2019-09-01] MEDS: Lactobacillus 1 EACH CAP.SPRINK PO SCH ×2 (09:07→21:07)
[2019-09-01] MEDS: Fluticasone Propionate Nasal 50 MCG/SPRAY BOTTLE NS SCH ×2 (09:16→21:10)
[2019-09-01] MEDS: Ibuprofen 600 MG TABLET PO PRN (21:08)
[2019-09-01] MEDS: ALPRAZolam 1 MG TABLET PO PRN (21:09)
[2019-09-01] MEDS: traZODone 50 MG TABLET PO SCH (21:09)
[2019-09-02] MEDS: Acetaminophen 325 MG TABLET PO SCH ×3 (05:57→18:34)
[2019-09-02] MEDS: Nystatin SUSP 5 ML UD.LIQ PO SCH ×3 (05:58→18:34)
[2019-09-02] MEDS: cefTRIAXone 2,000 MG in Water for inj. (sterile) 20 ML IVP SCH (09:56)
[2019-09-02] MEDS: *HR* OxyCODONE/APAP 5/325 TABLET PO PRN ×3 (09:58→19:37)
[2019-09-02] MEDS: Aspirin Enteric Coated 81 MG Tablet PO SCH (09:58)
[2019-09-02] MEDS: Cholecalciferol (D-3) 1,000 UNIT (25MCG) TABLET PO SCH (09:58)
[2019-09-02] MEDS: *HR* Metformin 500 MG TABLET PO SCH (09:58)
[2019-09-02] MEDS: metroNIDAZOLE 500 MG TABLET PO SCH ×3 (09:59→19:37)
[2019-09-02] MEDS: Multivit/Ca/Min/Fe/FA 1 TAB TABLET PO SCH (09:59)
[2019-09-02] MEDS: Metoprolol XL (24 HR) Succ 25 MG TAB.ER.24H PO SCH (09:59)
[2019-09-02] MEDS: Ascorbic Acid 500 MG TABLET PO SCH ×2 (09:59→18:34)
[2019-09-02] MEDS: *HR* FentaNYL PATCH 12 MCG PATCH TD SCH (09:59)
[2019-09-02] MEDS: Lactobacillus 1 EACH CAP.SPRINK PO SCH ×2 (09:59→19:36)
[2019-09-02] MEDS: Cyanocobalamin (B-12) 1,000 MCG TABLET PO SCH ×2 (09:59→19:36)
[2019-09-02] MEDS: Fluticasone Propionate Nasal 50 MCG/SPRAY BOTTLE NS SCH ×2 (10:17→19:36)
[2019-09-02] MEDS: traZODone 50 MG TABLET PO SCH (19:36)
[2019-09-02] MEDS: ALPRAZolam 1 MG TABLET PO PRN (19:37)
[2019-09-03] MEDS: Acetaminophen 325 MG TABLET PO SCH ×4 (00:53→17:44)
[2019-09-03] MEDS: Nystatin SUSP 5 ML UD.LIQ PO SCH ×4 (00:53→17:42)
[2019-09-03] MEDS: Ascorbic Acid 500 MG TABLET PO SCH ×2 (06:04→17:42)
[2019-09-03] MEDS: cefTRIAXone 2,000 MG in Water for inj. (sterile) 20 ML IVP SCH (09:00)
[2019-09-03] MEDS: Cholecalciferol (D-3) 1,000 UNIT (25MCG) TABLET PO SCH (09:01)
[2019-09-03] MEDS: Multivit/Ca/Min/Fe/FA 1 TAB TABLET PO SCH (09:01)
[2019-09-03] MEDS: Metoprolol XL (24 HR) Succ 25 MG TAB.ER.24H PO SCH (09:01)
[2019-09-03] MEDS: *HR* Metformin 500 MG TABLET PO SCH (09:02)
[2019-09-03] MEDS: *HR* OxyCODONE/APAP 5/325 TABLET PO PRN ×3 (09:02→17:42)
[2019-09-03] MEDS: Cyanocobalamin (B-12) 1,000 MCG TABLET PO SCH ×2 (09:02→21:05)
[2019-09-03] MEDS: Aspirin Enteric Coated 81 MG Tablet PO SCH (09:02)
[2019-09-03] MEDS: Lactobacillus 1 EACH CAP.SPRINK PO SCH ×2 (09:02→21:05)
[2019-09-03] MEDS: metroNIDAZOLE 500 MG TABLET PO SCH ×3 (09:02→21:04)
[2019-09-03] MEDS: Fluticasone Propionate Nasal 50 MCG/SPRAY BOTTLE NS SCH ×2 (09:06→21:05)
[2019-09-03] MEDS: traZODone 50 MG TABLET PO SCH (21:04)
[2019-09-03] MEDS: ALPRAZolam 1 MG TABLET PO PRN (21:07)
[2019-09-04] MEDS: Nystatin SUSP 5 ML UD.LIQ PO SCH ×4 (00:56→18:36)
[2019-09-04] MEDS: Acetaminophen 325 MG TABLET PO SCH ×4 (00:56→18:37)
[2019-09-04] MEDS: *HR* OxyCODONE/APAP 5/325 TABLET PO PRN ×4 (02:10→18:36)
[2019-09-04] MEDS: cefTRIAXone 2,000 MG in Water for inj. (sterile) 20 ML IVP SCH (09:20)
[2019-09-04] MEDS: metroNIDAZOLE 500 MG TABLET PO SCH ×3 (09:21→20:08)
[2019-09-04] MEDS: Cholecalciferol (D-3) 1,000 UNIT (25MCG) TABLET PO SCH (09:21)
[2019-09-04] MEDS: Lactobacillus 1 EACH CAP.SPRINK PO SCH ×2 (09:22→20:08)
[2019-09-04] MEDS: Metoprolol XL (24 HR) Succ 25 MG TAB.ER.24H PO SCH (09:22)
[2019-09-04] MEDS: Multivit/Ca/Min/Fe/FA 1 TAB TABLET PO SCH (09:22)
[2019-09-04] MEDS: *HR* Metformin 500 MG TABLET PO SCH (09:22)
[2019-09-04] MEDS: Ascorbic Acid 500 MG TABLET PO SCH ×2 (09:23→16:12)
[2019-09-04] MEDS: Aspirin Enteric Coated 81 MG Tablet PO SCH (09:23)
[2019-09-04] MEDS: Cyanocobalamin (B-12) 1,000 MCG TABLET PO SCH ×2 (09:23→20:08)
[2019-09-04] MEDS: Fluticasone Propionate Nasal 50 MCG/SPRAY BOTTLE NS SCH ×2 (09:37→20:10)
[2019-09-04] MEDS: traZODone 50 MG TABLET PO SCH (20:08)
[2019-09-04] MEDS: ALPRAZolam 1 MG TABLET PO PRN (20:09)
[2019-09-04] MEDS: Ibuprofen 600 MG TABLET PO PRN (20:13)
[2019-09-05] MEDS: Nystatin SUSP 5 ML UD.LIQ PO SCH ×5 (00:32→23:35)
[2019-09-05] MEDS: Acetaminophen 325 MG TABLET PO SCH ×5 (00:34→23:35)
[2019-09-05] MEDS: metroNIDAZOLE 500 MG TABLET PO SCH ×3 (10:21→20:01)
[2019-09-05] MEDS: Lactobacillus 1 EACH CAP.SPRINK PO SCH ×2 (10:21→20:00)
[2019-09-05] MEDS: *HR* Metformin 500 MG TABLET PO SCH (10:21)
[2019-09-05] MEDS: *HR* OxyCODONE/APAP 5/325 TABLET PO PRN ×2 (10:21→16:47)
[2019-09-05] MEDS: Cholecalciferol (D-3) 1,000 UNIT (25MCG) TABLET PO SCH (10:21)
[2019-09-05] MEDS: Aspirin Enteric Coated 81 MG Tablet PO SCH (10:21)
[2019-09-05] MEDS: Metoprolol XL (24 HR) Succ 25 MG TAB.ER.24H PO SCH (10:22)
[2019-09-05] MEDS: Multivit/Ca/Min/Fe/FA 1 TAB TABLET PO SCH (10:22)
[2019-09-05] MEDS: *HR* FentaNYL PATCH 12 MCG PATCH TD SCH (10:22)
[2019-09-05] MEDS: Ascorbic Acid 500 MG TABLET PO SCH ×2 (10:22→16:47)
[2019-09-05] MEDS: Cyanocobalamin (B-12) 1,000 MCG TABLET PO SCH ×2 (10:22→20:00)
[2019-09-05] MEDS: cefTRIAXone 2,000 MG in Water for inj. (sterile) 20 ML IVP SCH (10:25)
[2019-09-05] MEDS: Fluticasone Propionate Nasal 50 MCG/SPRAY BOTTLE NS SCH ×2 (10:26→20:00)
[2019-09-05 17:33] LABS: Basophils # 0.1 K/mcL (0.0-0.2); Basophils % 0.6 %; Eosinophils # 0.2 K/mcL (0.0-0.6); Eosinophils % 2.3 %; Hematocrit 38.1 % (35.3-44.9); Hemoglobin 12.4 g/dL (11.5-15.4); Immature Granulocytes % 0.3 % (0-4); Lymphocytes % 21.4 %; Mean Corpuscular HGB Conc 32.5 g/dL (31.6-35.5); Mean Corpuscular Volume 89.2 fL (83.0-100.0); Mean Platelet Volume 11.7 fL (9.4-12.4); Monocytes # 0.6 K/mcL (0.0-1.3); Monocytes % 6.5 %; Neutrophils # 6.5 K/mcL (1.6-8.9); Platelet Count 233 K/mcL (140-400); Red Blood Count 4.27 M/mcL (3.82-4.97); Red Cell Distribution Width 15.4 % (11.5-14.5); Segmented Neutrophils % 68.9 %; White Blood Count 9.4 K/mcL (4.3-11.1)
[2019-09-05 17:49] LABS: BUN/Creatinine Ratio 35 (6-26); Blood Urea Nitrogen 26 mg/dL (8-23); Carbon Dioxide 29 mEq/L (23-29); Chloride 104 mEq/L (98-107); Glucose 166 mg/dL (70-105); Osmolality,Calculated 301 (280-300); Potassium 3.9 mEq/L (3.5-5.1); Sodium 141 mEq/L (136-145); eGFR For African Americans > 60 (> 60); eGFR For Non-African Americans > 60 (> 60)
[2019-09-05] MEDS: traZODone 50 MG TABLET PO SCH (20:00)
[2019-09-05 20:45] LABS: C-Reactive Protein < 5 mg/L (Less than 10)
[2019-09-06] MEDS: Acetaminophen 325 MG TABLET PO SCH ×3 (06:48→17:17)
[2019-09-06] MEDS: metroNIDAZOLE 500 MG TABLET PO SCH ×3 (06:48→20:16)
[2019-09-06] MEDS: Metoprolol XL (24 HR) Succ 25 MG TAB.ER.24H PO SCH (06:48)
[2019-09-06] MEDS: Ascorbic Acid 500 MG TABLET PO SCH ×2 (06:49→17:17)
[2019-09-06] MEDS: *HR* Metformin 500 MG TABLET PO SCH (06:49)
[2019-09-06] MEDS: Aspirin Enteric Coated 81 MG Tablet PO SCH (06:49)
[2019-09-06] MEDS: Cyanocobalamin (B-12) 1,000 MCG TABLET PO SCH ×2 (06:49→20:16)
[2019-09-06] MEDS: Lactobacillus 1 EACH CAP.SPRINK PO SCH ×2 (06:49→20:16)
[2019-09-06] MEDS: Multivit/Ca/Min/Fe/FA 1 TAB TABLET PO SCH (06:49)
[2019-09-06] MEDS: Cholecalciferol (D-3) 1,000 UNIT (25MCG) TABLET PO SCH (06:49)
[2019-09-06] MEDS: cefTRIAXone 2,000 MG in Water for inj. (sterile) 20 ML IVP SCH (06:50)
[2019-09-06] MEDS: Fluticasone Propionate Nasal 50 MCG/SPRAY BOTTLE NS SCH ×2 (06:55→20:16)
[2019-09-06] MEDS: Nystatin SUSP 5 ML UD.LIQ PO SCH ×3 (07:14→17:16)
[2019-09-06] MEDS: *HR* OxyCODONE/APAP 5/325 TABLET PO PRN ×2 (11:46→19:34)
[2019-09-06] MEDS: *HR* Enoxaparin 40 MG/0.4 ML SYRINGE SQ SCH (13:25)
[2019-09-06] MEDS: traZODone 50 MG TABLET PO SCH (20:16)
[2019-09-06] MEDS: ALPRAZolam 1 MG TABLET PO PRN (20:20)
[2019-09-07] MEDS: Nystatin SUSP 5 ML UD.LIQ PO SCH ×5 (00:02→23:49)
[2019-09-07] MEDS: Acetaminophen 325 MG TABLET PO SCH ×5 (00:02→23:48)
[2019-09-07] MEDS: *HR* Enoxaparin 40 MG/0.4 ML SYRINGE SQ SCH (06:18)
[2019-09-07] MEDS: Cholecalciferol (D-3) 1,000 UNIT (25MCG) TABLET PO SCH (08:31)
[2019-09-07] MEDS: *HR* OxyCODONE/APAP 5/325 TABLET PO PRN ×3 (08:31→21:02)
[2019-09-07] MEDS: metroNIDAZOLE 500 MG TABLET PO SCH ×3 (08:32→21:02)
[2019-09-07] MEDS: Ascorbic Acid 500 MG TABLET PO SCH ×2 (08:32→16:01)
[2019-09-07] MEDS: *HR* Metformin 500 MG TABLET PO SCH (08:32)
[2019-09-07] MEDS: Cyanocobalamin (B-12) 1,000 MCG TABLET PO SCH ×2 (08:32→21:02)
[2019-09-07] MEDS: Aspirin Enteric Coated 81 MG Tablet PO SCH (08:32)
[2019-09-07] MEDS: Multivit/Ca/Min/Fe/FA 1 TAB TABLET PO SCH (08:32)
[2019-09-07] MEDS: Lactobacillus 1 EACH CAP.SPRINK PO SCH ×2 (08:32→21:02)
[2019-09-07] MEDS: Metoprolol XL (24 HR) Succ 25 MG TAB.ER.24H PO SCH (08:32)
[2019-09-07] MEDS: cefTRIAXone 2,000 MG in Water for inj. (sterile) 20 ML IVP SCH (08:33)
[2019-09-07] MEDS: Fluticasone Propionate Nasal 50 MCG/SPRAY BOTTLE NS SCH ×2 (08:33→21:01)
[2019-09-07] MEDS: traZODone 50 MG TABLET PO SCH (21:02)
[2019-09-07] MEDS: ALPRAZolam 1 MG TABLET PO PRN (23:49)
[2019-09-08] MEDS: *HR* Enoxaparin 40 MG/0.4 ML SYRINGE SQ SCH (06:20)
[2019-09-08] MEDS: Acetaminophen 325 MG TABLET PO SCH ×3 (06:20→18:03)
[2019-09-08] MEDS: Nystatin SUSP 5 ML UD.LIQ PO SCH ×3 (06:20→17:19)
[2019-09-08] MEDS: *HR* OxyCODONE/APAP 5/325 TABLET PO PRN ×3 (08:02→20:59)
[2019-09-08] MEDS: Cholecalciferol (D-3) 1,000 UNIT (25MCG) TABLET PO SCH (08:03)
[2019-09-08] MEDS: *HR* Metformin 500 MG TABLET PO SCH (08:04)
[2019-09-08] MEDS: Aspirin Enteric Coated 81 MG Tablet PO SCH (08:04)
[2019-09-08] MEDS: Multivit/Ca/Min/Fe/FA 1 TAB TABLET PO SCH (08:04)
[2019-09-08] MEDS: Metoprolol XL (24 HR) Succ 25 MG TAB.ER.24H PO SCH (08:04)
[2019-09-08] MEDS: Cyanocobalamin (B-12) 1,000 MCG TABLET PO SCH ×2 (08:04→20:59)
[2019-09-08] MEDS: Lactobacillus 1 EACH CAP.SPRINK PO SCH ×2 (08:04→20:58)
[2019-09-08] MEDS: Ascorbic Acid 500 MG TABLET PO SCH ×2 (08:04→17:20)
[2019-09-08] MEDS: metroNIDAZOLE 500 MG TABLET PO SCH ×3 (08:05→20:58)
[2019-09-08] MEDS: cefTRIAXone 2,000 MG in Water for inj. (sterile) 20 ML IVP SCH (08:05)
[2019-09-08] MEDS: Fluticasone Propionate Nasal 50 MCG/SPRAY BOTTLE NS SCH ×2 (08:06→20:59)
[2019-09-08] MEDS: *HR* FentaNYL PATCH 12 MCG PATCH TD SCH (11:34)
[2019-09-08] MEDS: traZODone 50 MG TABLET PO SCH (20:59)
[2019-09-08] MEDS: ALPRAZolam 1 MG TABLET PO PRN (20:59)
[2019-09-09] MEDS: *HR* Enoxaparin 40 MG/0.4 ML SYRINGE SQ SCH (06:31)
[2019-09-09] MEDS: Acetaminophen 325 MG TABLET PO SCH ×4 (06:31→16:28)
[2019-09-09] MEDS: Nystatin SUSP 5 ML UD.LIQ PO SCH ×4 (06:31→16:27)
[2019-09-09] MEDS: *HR* OxyCODONE/APAP 5/325 TABLET PO PRN ×4 (06:32→20:36)
[2019-09-09] MEDS: cefTRIAXone 2,000 MG in Water for inj. (sterile) 20 ML IVP SCH (07:59)
[2019-09-09] MEDS: Cholecalciferol (D-3) 1,000 UNIT (25MCG) TABLET PO SCH (08:00)
[2019-09-09] MEDS: metroNIDAZOLE 500 MG TABLET PO SCH ×3 (08:00→20:35)
[2019-09-09] MEDS: Metoprolol XL (24 HR) Succ 25 MG TAB.ER.24H PO SCH (08:00)
[2019-09-09] MEDS: Lactobacillus 1 EACH CAP.SPRINK PO SCH ×2 (08:01→20:35)
[2019-09-09] MEDS: Cyanocobalamin (B-12) 1,000 MCG TABLET PO SCH ×2 (08:01→20:35)
[2019-09-09] MEDS: Multivit/Ca/Min/Fe/FA 1 TAB TABLET PO SCH (08:01)
[2019-09-09] MEDS: Aspirin Enteric Coated 81 MG Tablet PO SCH (08:01)
[2019-09-09] MEDS: *HR* Metformin 500 MG TABLET PO SCH (08:01)
[2019-09-09] MEDS: Ascorbic Acid 500 MG TABLET PO SCH ×2 (08:01→16:28)
[2019-09-09] MEDS: Fluticasone Propionate Nasal 50 MCG/SPRAY BOTTLE NS SCH ×2 (09:49→20:35)
[2019-09-09 12:04] LABS: BUN/Creatinine Ratio 46 (6-26); Blood Urea Nitrogen 26 mg/dL (8-23); Calcium 8.6 mg/dL (8.6-10.3); Carbon Dioxide 29 mEq/L (23-29); Chloride 107 mEq/L (98-107); Glucose 198 mg/dL (70-105); Osmolality,Calculated 304 (280-300); Sodium 142 mEq/L (136-145); eGFR For African Americans > 60 (> 60); eGFR For Non-African Americans > 60 (> 60)
[2019-09-09 12:37] LABS: Basophils # 0.1 K/mcL (0.0-0.2); Basophils % 0.6 %; Eosinophils # 0.2 K/mcL (0.0-0.6); Hematocrit 37.7 % (35.3-44.9); Immature Granulocytes % 0.3 % (0-4); Lymphocytes # 2.5 K/mcL (0.6-4.6); Mean Corpuscular HGB Conc 31.8 g/dL (31.6-35.5); Mean Corpuscular Hemoglobin 28.9 pg (28.0-33.3); Mean Corpuscular Volume 90.8 fL (83.0-100.0); Mean Platelet Volume 12.6 fL (9.4-12.4); Monocytes # 0.7 K/mcL (0.0-1.3); Monocytes % 6.7 %; Neutrophils # 7.4 K/mcL (1.6-8.9); Platelet Count 247 K/mcL (140-400); Red Blood Count 4.15 M/mcL (3.82-4.97); Red Cell Distribution Width 15.7 % (11.5-14.5); Segmented Neutrophils % 67.4 %
[2019-09-09] MEDS: ALPRAZolam 1 MG TABLET PO PRN (20:35)
[2019-09-09] MEDS: traZODone 50 MG TABLET PO SCH (20:35)
[2019-09-10] MEDS: Nystatin SUSP 5 ML UD.LIQ PO SCH ×4 (04:10→17:41)
[2019-09-10] MEDS: Acetaminophen 325 MG TABLET PO SCH ×4 (04:10→17:40)
[2019-09-10] MEDS: *HR* Enoxaparin 40 MG/0.4 ML SYRINGE SQ SCH (07:02)
[2019-09-10] MEDS: *HR* OxyCODONE/APAP 5/325 TABLET PO PRN ×4 (07:05→20:31)
[2019-09-10] MEDS: Cholecalciferol (D-3) 1,000 UNIT (25MCG) TABLET PO SCH (08:14)
[2019-09-10] MEDS: Cyanocobalamin (B-12) 1,000 MCG TABLET PO SCH ×2 (08:14→20:31)
[2019-09-10] MEDS: Ascorbic Acid 500 MG TABLET PO SCH ×2 (08:14→17:40)
[2019-09-10] MEDS: Multivit/Ca/Min/Fe/FA 1 TAB TABLET PO SCH (08:14)
[2019-09-10] MEDS: *HR* Metformin 500 MG TABLET PO SCH (08:14)
[2019-09-10] MEDS: metroNIDAZOLE 500 MG TABLET PO SCH ×3 (08:14→20:31)
[2019-09-10] MEDS: cefTRIAXone 2,000 MG in Water for inj. (sterile) 20 ML IVP SCH (08:15)
[2019-09-10] MEDS: Lactobacillus 1 EACH CAP.SPRINK PO SCH ×2 (08:15→20:31)
[2019-09-10] MEDS: Aspirin Enteric Coated 81 MG Tablet PO SCH (08:15)
[2019-09-10] MEDS: Metoprolol XL (24 HR) Succ 25 MG TAB.ER.24H PO SCH (08:15)
[2019-09-10] MEDS: Fluticasone Propionate Nasal 50 MCG/SPRAY BOTTLE NS SCH ×2 (08:16→20:31)
[2019-09-10] MEDS: traZODone 50 MG TABLET PO SCH (20:31)
[2019-09-10] MEDS: ALPRAZolam 1 MG TABLET PO PRN (20:32)
[2019-09-11] MEDS: Nystatin SUSP 5 ML UD.LIQ PO SCH ×5 (01:02→23:59)
[2019-09-11] MEDS: Acetaminophen 325 MG TABLET PO SCH ×5 (01:02→23:59)
[2019-09-11] MEDS: *HR* OxyCODONE/APAP 5/325 TABLET PO PRN ×2 (05:58→16:47)
[2019-09-11] MEDS: *HR* Enoxaparin 40 MG/0.4 ML SYRINGE SQ SCH (05:58)
[2019-09-11] MEDS: Metoprolol XL (24 HR) Succ 25 MG TAB.ER.24H PO SCH (08:35)
[2019-09-11] MEDS: Aspirin Enteric Coated 81 MG Tablet PO SCH (08:36)
[2019-09-11] MEDS: cefTRIAXone 2,000 MG in Water for inj. (sterile) 20 ML IVP SCH (08:36)
[2019-09-11] MEDS: Cholecalciferol (D-3) 1,000 UNIT (25MCG) TABLET PO SCH (08:36)
[2019-09-11] MEDS: Lactobacillus 1 EACH CAP.SPRINK PO SCH ×2 (08:36→20:31)
[2019-09-11] MEDS: Ascorbic Acid 500 MG TABLET PO SCH ×2 (08:36→16:47)
[2019-09-11] MEDS: metroNIDAZOLE 500 MG TABLET PO SCH ×3 (08:36→20:31)
[2019-09-11] MEDS: Multivit/Ca/Min/Fe/FA 1 TAB TABLET PO SCH (08:36)
[2019-09-11] MEDS: *HR* Metformin 500 MG TABLET PO SCH (08:37)
[2019-09-11] MEDS: Cyanocobalamin (B-12) 1,000 MCG TABLET PO SCH ×2 (08:38→20:31)
[2019-09-11] MEDS: *HR* FentaNYL PATCH 12 MCG PATCH TD SCH (10:11)
[2019-09-11] MEDS: Fluticasone Propionate Nasal 50 MCG/SPRAY BOTTLE NS SCH ×2 (10:11→20:31)
[2019-09-11] MEDS ORDERED: D5% in Water 1,000 ML IVC PRN (11:47)
[2019-09-11] MEDS ORDERED: *HR* Dextrose 50 % in Water (Syg) 50 ML SYRINGE IVP PRN (11:47)
[2019-09-11] MEDS ORDERED: Dextrose Gel 15 GM/37.5 ML TUBE PO PRN ×2 (11:47)
[2019-09-11] MEDS: Insulin LISPRO 300 UNITS/3 ML VIAL SQ SCH ×4 (12:59→20:32)
[2019-09-11] MEDS: traZODone 50 MG TABLET PO SCH (20:31)
[2019-09-11] MEDS: ALPRAZolam 1 MG TABLET PO PRN (20:31)
[2019-09-12] MEDS: Nystatin SUSP 5 ML UD.LIQ PO SCH ×4 (05:58→23:43)
[2019-09-12] MEDS: *HR* Enoxaparin 40 MG/0.4 ML SYRINGE SQ SCH (05:58)
[2019-09-12] MEDS: Acetaminophen 325 MG TABLET PO SCH ×4 (05:58→23:43)
[2019-09-12] MEDS: Fluticasone Propionate Nasal 50 MCG/SPRAY BOTTLE NS SCH ×2 (08:12→20:34)
[2019-09-12] MEDS: cefTRIAXone 2,000 MG in Water for inj. (sterile) 20 ML IVP SCH (08:13)
[2019-09-12] MEDS: Insulin LISPRO 300 UNITS/3 ML VIAL SQ SCH ×4 (08:13→20:35)
[2019-09-12] MEDS: Cyanocobalamin (B-12) 1,000 MCG TABLET PO SCH ×2 (08:14→20:35)
[2019-09-12] MEDS: Multivit/Ca/Min/Fe/FA 1 TAB TABLET PO SCH (08:14)
[2019-09-12] MEDS: Metoprolol XL (24 HR) Succ 25 MG TAB.ER.24H PO SCH (08:14)
[2019-09-12] MEDS: Cholecalciferol (D-3) 1,000 UNIT (25MCG) TABLET PO SCH (08:14)
[2019-09-12] MEDS: Aspirin Enteric Coated 81 MG Tablet PO SCH (08:15)
[2019-09-12] MEDS: Ascorbic Acid 500 MG TABLET PO SCH ×2 (08:15→16:52)
[2019-09-12] MEDS: *HR* Metformin 500 MG TABLET PO SCH (08:15)
[2019-09-12] MEDS: Lactobacillus 1 EACH CAP.SPRINK PO SCH ×2 (08:15→20:35)
[2019-09-12] MEDS: metroNIDAZOLE 500 MG TABLET PO SCH ×3 (08:15→20:35)
[2019-09-12] MEDS: *HR* OxyCODONE/APAP 5/325 TABLET PO PRN ×3 (08:28→20:35)
[2019-09-12] MEDS: traZODone 50 MG TABLET PO SCH (20:35)
[2019-09-12] MEDS: ALPRAZolam 1 MG TABLET PO PRN (20:35)
[2019-09-13] MEDS: *HR* OxyCODONE/APAP 5/325 TABLET PO PRN ×3 (05:03→17:50)
[2019-09-13] MEDS: Acetaminophen 325 MG TABLET PO SCH ×4 (05:03→23:49)
[2019-09-13] MEDS: *HR* Enoxaparin 40 MG/0.4 ML SYRINGE SQ SCH (05:04)
[2019-09-13] MEDS: Nystatin SUSP 5 ML UD.LIQ PO SCH ×4 (05:04→23:49)
[2019-09-13] MEDS: Insulin LISPRO 300 UNITS/3 ML VIAL SQ SCH ×4 (07:46→19:57)
[2019-09-13] MEDS: cefTRIAXone 2,000 MG in Water for inj. (sterile) 20 ML IVP SCH (09:36)
[2019-09-13] MEDS: Multivit/Ca/Min/Fe/FA 1 TAB TABLET PO SCH (09:37)
[2019-09-13] MEDS: metroNIDAZOLE 500 MG TABLET PO SCH ×3 (09:37→19:56)
[2019-09-13] MEDS: Lactobacillus 1 EACH CAP.SPRINK PO SCH ×2 (09:37→19:56)
[2019-09-13] MEDS: Cholecalciferol (D-3) 1,000 UNIT (25MCG) TABLET PO SCH (09:37)
[2019-09-13] MEDS: Cyanocobalamin (B-12) 1,000 MCG TABLET PO SCH ×2 (09:37→19:56)
[2019-09-13] MEDS: Aspirin Enteric Coated 81 MG Tablet PO SCH (09:37)
[2019-09-13] MEDS: Metoprolol XL (24 HR) Succ 25 MG TAB.ER.24H PO SCH (09:38)
[2019-09-13] MEDS: Ascorbic Acid 500 MG TABLET PO SCH ×2 (09:38→15:57)
[2019-09-13] MEDS: *HR* Metformin 500 MG TABLET PO SCH (09:38)
[2019-09-13] MEDS: Fluticasone Propionate Nasal 50 MCG/SPRAY BOTTLE NS SCH ×2 (10:00→19:56)
[2019-09-13] MEDS ORDERED: *HR* Dextrose 50 % in Water (Vial) 50 ML VIAL IVP PRN (15:45)
[2019-09-13] MEDS: ALPRAZolam 1 MG TABLET PO PRN (19:56)
[2019-09-13] MEDS: traZODone 50 MG TABLET PO SCH (19:56)
[2019-09-14] MEDS: Acetaminophen 325 MG TABLET PO SCH ×4 (05:00→23:42)
[2019-09-14] MEDS: Nystatin SUSP 5 ML UD.LIQ PO SCH ×4 (05:00→23:43)
[2019-09-14] MEDS: *HR* Enoxaparin 40 MG/0.4 ML SYRINGE SQ SCH (05:00)
[2019-09-14] MEDS: *HR* OxyCODONE/APAP 5/325 TABLET PO PRN ×5 (05:03→23:43)
[2019-09-14] MEDS: Insulin LISPRO 300 UNITS/3 ML VIAL SQ SCH ×4 (08:32→20:30)
[2019-09-14] MEDS: Fluticasone Propionate Nasal 50 MCG/SPRAY BOTTLE NS SCH ×2 (08:45→20:36)
[2019-09-14] MEDS: Cholecalciferol (D-3) 1,000 UNIT (25MCG) TABLET PO SCH (08:45)
[2019-09-14] MEDS: Metoprolol XL (24 HR) Succ 25 MG TAB.ER.24H PO SCH (08:46)
[2019-09-14] MEDS: Ascorbic Acid 500 MG TABLET PO SCH ×2 (08:46→16:20)
[2019-09-14] MEDS: Multivit/Ca/Min/Fe/FA 1 TAB TABLET PO SCH (08:46)
[2019-09-14] MEDS: Cyanocobalamin (B-12) 1,000 MCG TABLET PO SCH ×2 (08:46→20:36)
[2019-09-14] MEDS: Lactobacillus 1 EACH CAP.SPRINK PO SCH ×2 (08:46→20:36)
[2019-09-14] MEDS: *HR* Metformin 500 MG TABLET PO SCH (08:46)
[2019-09-14] MEDS: metroNIDAZOLE 500 MG TABLET PO SCH ×3 (08:46→20:36)
[2019-09-14] MEDS: Aspirin Enteric Coated 81 MG Tablet PO SCH (08:46)
[2019-09-14] MEDS: cefTRIAXone 2,000 MG in Water for inj. (sterile) 20 ML IVP SCH (08:47)
[2019-09-14] MEDS: *HR* FentaNYL PATCH 12 MCG PATCH TD SCH (08:55)
[2019-09-14] MEDS: traZODone 50 MG TABLET PO SCH (20:36)
[2019-09-14] MEDS: ALPRAZolam 1 MG TABLET PO PRN (20:39)
[2019-09-15] MEDS: Acetaminophen 325 MG TABLET PO SCH ×3 (05:37→17:21)
[2019-09-15] MEDS: *HR* OxyCODONE/APAP 5/325 TABLET PO PRN ×2 (05:37→17:23)
[2019-09-15] MEDS: Nystatin SUSP 5 ML UD.LIQ PO SCH ×3 (05:38→17:21)
[2019-09-15] MEDS: *HR* Enoxaparin 40 MG/0.4 ML SYRINGE SQ SCH (05:39)
[2019-09-15] MEDS: Insulin LISPRO 300 UNITS/3 ML VIAL SQ SCH ×4 (07:26→20:28)
[2019-09-15] MEDS: Cholecalciferol (D-3) 1,000 UNIT (25MCG) TABLET PO SCH (08:51)
[2019-09-15] MEDS: *HR* Metformin 500 MG TABLET PO SCH (08:52)
[2019-09-15] MEDS: metroNIDAZOLE 500 MG TABLET PO SCH ×3 (08:52→20:27)
[2019-09-15] MEDS: Multivit/Ca/Min/Fe/FA 1 TAB TABLET PO SCH (08:53)
[2019-09-15] MEDS: Lactobacillus 1 EACH CAP.SPRINK PO SCH ×2 (08:53→20:27)
[2019-09-15] MEDS: Ascorbic Acid 500 MG TABLET PO SCH ×2 (08:53→16:50)
[2019-09-15] MEDS: Aspirin Enteric Coated 81 MG Tablet PO SCH (08:53)
[2019-09-15] MEDS: Cyanocobalamin (B-12) 1,000 MCG TABLET PO SCH ×2 (08:53→20:27)
[2019-09-15] MEDS: Fluticasone Propionate Nasal 50 MCG/SPRAY BOTTLE NS SCH ×2 (08:54→20:27)
[2019-09-15] MEDS: cefTRIAXone 2,000 MG in Water for inj. (sterile) 20 ML IVP SCH (08:57)
[2019-09-15] MEDS: Metoprolol XL (24 HR) Succ 25 MG TAB.ER.24H PO SCH (10:56)
[2019-09-15] MEDS: traZODone 50 MG TABLET PO SCH (20:29)
[2019-09-16] MEDS: Nystatin SUSP 5 ML UD.LIQ PO SCH ×4 (00:05→16:18)
[2019-09-16] MEDS: Acetaminophen 325 MG TABLET PO SCH ×4 (00:05→16:19)
[2019-09-16] MEDS: *HR* Enoxaparin 40 MG/0.4 ML SYRINGE SQ SCH (05:14)
[2019-09-16] MEDS: Insulin LISPRO 300 UNITS/3 ML VIAL SQ SCH ×4 (07:26→20:41)
[2019-09-16] MEDS: Aspirin Enteric Coated 81 MG Tablet PO SCH (08:28)
[2019-09-16] MEDS: Multivit/Ca/Min/Fe/FA 1 TAB TABLET PO SCH (08:28)
[2019-09-16] MEDS: Cyanocobalamin (B-12) 1,000 MCG TABLET PO SCH ×2 (08:28→20:20)
[2019-09-16] MEDS: *HR* Metformin 500 MG TABLET PO SCH (08:29)
[2019-09-16] MEDS: Ascorbic Acid 500 MG TABLET PO SCH ×2 (08:29→16:18)
[2019-09-16] MEDS: metroNIDAZOLE 500 MG TABLET PO SCH ×3 (08:29→20:20)
[2019-09-16] MEDS: Lactobacillus 1 EACH CAP.SPRINK PO SCH ×2 (08:29→20:20)
[2019-09-16] MEDS: *HR* OxyCODONE/APAP 5/325 TABLET PO PRN ×3 (08:29→20:20)
[2019-09-16] MEDS: Metoprolol XL (24 HR) Succ 25 MG TAB.ER.24H PO SCH (08:29)
[2019-09-16] MEDS: Cholecalciferol (D-3) 1,000 UNIT (25MCG) TABLET PO SCH (08:30)
[2019-09-16] MEDS: Fluticasone Propionate Nasal 50 MCG/SPRAY BOTTLE NS SCH ×2 (08:30→20:20)
[2019-09-16] MEDS: cefTRIAXone 2,000 MG in Water for inj. (sterile) 20 ML IVP SCH (08:32)
[2019-09-16] MEDS: ALPRAZolam 1 MG TABLET PO PRN (20:20)
[2019-09-16] MEDS: traZODone 50 MG TABLET PO SCH (20:20)
[2019-09-17] MEDS: Nystatin SUSP 5 ML UD.LIQ PO SCH ×4 (00:40→17:17)
[2019-09-17] MEDS: Acetaminophen 325 MG TABLET PO SCH ×4 (00:40→17:17)
[2019-09-17] MEDS: *HR* OxyCODONE/APAP 5/325 TABLET PO PRN ×4 (04:34→20:34)
[2019-09-17] MEDS: *HR* Enoxaparin 40 MG/0.4 ML SYRINGE SQ SCH (05:31)
[2019-09-17] MEDS: Cholecalciferol (D-3) 1,000 UNIT (25MCG) TABLET PO SCH (08:05)
[2019-09-17] MEDS: metroNIDAZOLE 500 MG TABLET PO SCH ×3 (08:05→20:25)
[2019-09-17] MEDS: Insulin LISPRO 300 UNITS/3 ML VIAL SQ SCH ×4 (08:05→20:16)
[2019-09-17] MEDS: Lactobacillus 1 EACH CAP.SPRINK PO SCH ×2 (08:06→20:25)
[2019-09-17] MEDS: Metoprolol XL (24 HR) Succ 25 MG TAB.ER.24H PO SCH (08:06)
[2019-09-17] MEDS: Multivit/Ca/Min/Fe/FA 1 TAB TABLET PO SCH (08:06)
[2019-09-17] MEDS: Cyanocobalamin (B-12) 1,000 MCG TABLET PO SCH ×2 (08:06→20:25)
[2019-09-17] MEDS: Ascorbic Acid 500 MG TABLET PO SCH ×2 (08:07→16:40)
[2019-09-17] MEDS: Aspirin Enteric Coated 81 MG Tablet PO SCH (08:07)
[2019-09-17] MEDS: *HR* Metformin 500 MG TABLET PO SCH (08:07)
[2019-09-17] MEDS: *HR* FentaNYL PATCH 12 MCG PATCH TD SCH (08:08)
[2019-09-17] MEDS: cefTRIAXone 2,000 MG in Water for inj. (sterile) 20 ML IVP SCH (08:14)
[2019-09-17] MEDS: Fluticasone Propionate Nasal 50 MCG/SPRAY BOTTLE NS SCH ×2 (08:31→20:24)
[2019-09-17] MEDS: traZODone 50 MG TABLET PO SCH (20:25)
[2019-09-17] MEDS: ALPRAZolam 1 MG TABLET PO PRN (20:25)
[2019-09-18] MEDS: Acetaminophen 325 MG TABLET PO SCH ×4 (01:11→17:12)
[2019-09-18] MEDS: Nystatin SUSP 5 ML UD.LIQ PO SCH ×4 (01:11→17:12)
[2019-09-18] MEDS: *HR* OxyCODONE/APAP 5/325 TABLET PO PRN ×4 (06:11→21:51)
[2019-09-18] MEDS: *HR* Enoxaparin 40 MG/0.4 ML SYRINGE SQ SCH (06:11)
[2019-09-18] MEDS: Aspirin Enteric Coated 81 MG Tablet PO SCH (08:21)
[2019-09-18] MEDS: Cyanocobalamin (B-12) 1,000 MCG TABLET PO SCH ×2 (08:21→21:51)
[2019-09-18] MEDS: Lactobacillus 1 EACH CAP.SPRINK PO SCH ×2 (08:21→21:51)
[2019-09-18] MEDS: Ascorbic Acid 500 MG TABLET PO SCH ×2 (08:21→17:12)
[2019-09-18] MEDS: metroNIDAZOLE 500 MG TABLET PO SCH ×3 (08:22→21:51)
[2019-09-18] MEDS: Multivit/Ca/Min/Fe/FA 1 TAB TABLET PO SCH (08:22)
[2019-09-18] MEDS: Metoprolol XL (24 HR) Succ 25 MG TAB.ER.24H PO SCH (08:22)
[2019-09-18] MEDS: *HR* Metformin 500 MG TABLET PO SCH (08:22)
[2019-09-18] MEDS: Insulin LISPRO 300 UNITS/3 ML VIAL SQ SCH ×4 (08:23→21:52)
[2019-09-18] MEDS: cefTRIAXone 2,000 MG in Water for inj. (sterile) 20 ML IVP SCH (08:24)
[2019-09-18] MEDS: Cholecalciferol (D-3) 1,000 UNIT (25MCG) TABLET PO SCH (08:32)
[2019-09-18] MEDS: Fluticasone Propionate Nasal 50 MCG/SPRAY BOTTLE NS SCH ×2 (08:32→21:52)
[2019-09-18 08:46] LABS: Basophils # 0.1 K/mcL (0.0-0.2); Basophils % 0.6 %; Eosinophils # 0.2 K/mcL (0.0-0.6); Eosinophils % 2.5 %; Hematocrit 35.5 % (35.3-44.9); Hemoglobin 11.8 g/dL (11.5-15.4); Immature Granulocytes % 0.4 % (0-4); Lymphocytes # 2.1 K/mcL (0.6-4.6); Mean Corpuscular HGB Conc 33.2 g/dL (31.6-35.5); Mean Corpuscular Hemoglobin 29.8 pg (28.0-33.3); Mean Corpuscular Volume 89.6 fL (83.0-100.0); Mean Platelet Volume 12.7 fL (9.4-12.4); Monocytes # 0.8 K/mcL (0.0-1.3); Neutrophils # 5.2 K/mcL (1.6-8.9); Platelet Count 214 K/mcL (140-400); Red Blood Count 3.96 M/mcL (3.82-4.97); Red Cell Distribution Width 15.4 % (11.5-14.5); Segmented Neutrophils % 62.5 %; White Blood Count 8.3 K/mcL (4.3-11.1)
[2019-09-18 09:34] LABS: BUN/Creatinine Ratio 38 (6-26); Blood Urea Nitrogen 22 mg/dL (8-23); Calcium 9.4 mg/dL (8.6-10.3); Carbon Dioxide 31 mEq/L (23-29); Chloride 102 mEq/L (98-107); Glucose 125 mg/dL (70-105); Osmolality,Calculated 299 (280-300); Sodium 142 mEq/L (136-145); eGFR For African Americans > 60 (> 60); eGFR For Non-African Americans > 60 (> 60)
[2019-09-18 13:50] LABS: Estimated Average Glucose 157 mg/dl
[2019-09-18] MEDS: traZODone 50 MG TABLET PO SCH (21:51)
[2019-09-18] MEDS: ALPRAZolam 1 MG TABLET PO PRN (21:51)
[2019-09-19] MEDS: Acetaminophen 325 MG TABLET PO SCH ×4 (00:44→16:44)
[2019-09-19] MEDS: Nystatin SUSP 5 ML UD.LIQ PO SCH ×4 (00:44→16:46)
[2019-09-19] MEDS: *HR* Enoxaparin 40 MG/0.4 ML SYRINGE SQ SCH (06:16)
[2019-09-19] MEDS: Insulin LISPRO 300 UNITS/3 ML VIAL SQ SCH ×4 (07:51→21:45)
[2019-09-19] MEDS: cefTRIAXone 2,000 MG in Water for inj. (sterile) 20 ML IVP SCH (07:52)
[2019-09-19] MEDS: Fluticasone Propionate Nasal 50 MCG/SPRAY BOTTLE NS SCH ×2 (07:52→21:44)
[2019-09-19] MEDS: Lactobacillus 1 EACH CAP.SPRINK PO SCH ×2 (07:53→21:44)
[2019-09-19] MEDS: metroNIDAZOLE 500 MG TABLET PO SCH ×3 (07:53→21:44)
[2019-09-19] MEDS: Aspirin Enteric Coated 81 MG Tablet PO SCH (07:53)
[2019-09-19] MEDS: Cyanocobalamin (B-12) 1,000 MCG TABLET PO SCH ×2 (07:53→21:44)
[2019-09-19] MEDS: *HR* Metformin 500 MG TABLET PO SCH (07:54)
[2019-09-19] MEDS: *HR* OxyCODONE/APAP 5/325 TABLET PO PRN ×4 (07:54→21:44)
[2019-09-19] MEDS: Ascorbic Acid 500 MG TABLET PO SCH ×2 (07:54→16:44)
[2019-09-19] MEDS: Multivit/Ca/Min/Fe/FA 1 TAB TABLET PO SCH (07:54)
[2019-09-19] MEDS: Metoprolol XL (24 HR) Succ 25 MG TAB.ER.24H PO SCH (07:54)
[2019-09-19] MEDS: Cholecalciferol (D-3) 1,000 UNIT (25MCG) TABLET PO SCH (07:54)
[2019-09-19] MEDS: ALPRAZolam 1 MG TABLET PO PRN (21:44)
[2019-09-19] MEDS: traZODone 50 MG TABLET PO SCH (21:44)
[2019-09-20] MEDS: Acetaminophen 325 MG TABLET PO SCH ×4 (00:20→16:58)
[2019-09-20] MEDS: Nystatin SUSP 5 ML UD.LIQ PO SCH ×4 (00:20→16:57)
[2019-09-20] MEDS: *HR* Enoxaparin 40 MG/0.4 ML SYRINGE SQ SCH (06:25)
[2019-09-20] MEDS: Insulin LISPRO 300 UNITS/3 ML VIAL SQ SCH ×4 (08:18→21:16)
[2019-09-20] MEDS: *HR* FentaNYL PATCH 12 MCG PATCH TD SCH (08:19)
[2019-09-20] MEDS: *HR* Metformin 500 MG TABLET PO SCH (08:19)
[2019-09-20] MEDS: Ascorbic Acid 500 MG TABLET PO SCH ×2 (08:19→16:58)
[2019-09-20] MEDS: Multivit/Ca/Min/Fe/FA 1 TAB TABLET PO SCH (08:20)
[2019-09-20] MEDS: metroNIDAZOLE 500 MG TABLET PO SCH ×3 (08:20→21:12)
[2019-09-20] MEDS: Lactobacillus 1 EACH CAP.SPRINK PO SCH ×2 (08:20→21:12)
[2019-09-20] MEDS: Cyanocobalamin (B-12) 1,000 MCG TABLET PO SCH ×2 (08:20→21:12)
[2019-09-20] MEDS: Aspirin Enteric Coated 81 MG Tablet PO SCH (08:20)
[2019-09-20] MEDS: Cholecalciferol (D-3) 1,000 UNIT (25MCG) TABLET PO SCH (08:21)
[2019-09-20] MEDS: *HR* OxyCODONE/APAP 5/325 TABLET PO PRN ×3 (08:29→21:11)
[2019-09-20] MEDS: Metoprolol XL (24 HR) Succ 25 MG TAB.ER.24H PO SCH (08:29)
[2019-09-20] MEDS: Fluticasone Propionate Nasal 50 MCG/SPRAY BOTTLE NS SCH ×2 (08:30→21:12)
[2019-09-20] MEDS: cefTRIAXone 2,000 MG in Water for inj. (sterile) 20 ML IVP SCH (08:30)
[2019-09-20] MEDS ORDERED: Morphine Sulfate 2 MG/ML SYRINGE IVP PRN (11:16)
[2019-09-20] MEDS ORDERED: Acetaminophen IV 1,000 MG/100 ML INFUS..BTL IVPB ONE (11:16)
[2019-09-20] MEDS: traZODone 50 MG TABLET PO SCH (21:12)
[2019-09-21] MEDS: Acetaminophen 325 MG TABLET PO SCH ×3 (01:20→12:46)
[2019-09-21] MEDS: Nystatin SUSP 5 ML UD.LIQ PO SCH ×3 (01:20→12:46)
[2019-09-21] MEDS: *HR* OxyCODONE/APAP 5/325 TABLET PO PRN ×3 (02:23→12:49)
[2019-09-21] MEDS: *HR* Enoxaparin 40 MG/0.4 ML SYRINGE SQ SCH (07:10)
[2019-09-21 07:18] VITALS: BP 112/68
[2019-09-21] MEDS: Cholecalciferol (D-3) 1,000 UNIT (25MCG) TABLET PO SCH (08:59)
[2019-09-21] MEDS: Cyanocobalamin (B-12) 1,000 MCG TABLET PO SCH (08:59)
[2019-09-21] MEDS: Multivit/Ca/Min/Fe/FA 1 TAB TABLET PO SCH (08:59)
[2019-09-21] MEDS: *HR* Metformin 500 MG TABLET PO SCH (08:59)
[2019-09-21] MEDS: Aspirin Enteric Coated 81 MG Tablet PO SCH (08:59)
[2019-09-21] MEDS: metroNIDAZOLE 500 MG TABLET PO SCH (08:59)
[2019-09-21] MEDS: Insulin LISPRO 300 UNITS/3 ML VIAL SQ SCH ×2 (09:00→12:33)
[2019-09-21] MEDS: Metoprolol XL (24 HR) Succ 25 MG TAB.ER.24H PO SCH (09:00)
[2019-09-21] MEDS: Ascorbic Acid 500 MG TABLET PO SCH (09:00)
[2019-09-21] MEDS: Fluticasone Propionate Nasal 50 MCG/SPRAY BOTTLE NS SCH (09:06)
[2019-09-21] MEDS: Lactobacillus 1 EACH CAP.SPRINK PO SCH (09:06)
[2019-09-21] MEDS ORDERED: *HR* FentaNYL PATCH 12 MCG PATCH TD SCH (09:45)
== END 2019-09-21 15:45 | DRG 603 ==
LOC: INPPIK 14:21
PROVIDERS: ADMIT Internal Medicine; ATTEND Internal Medicine